=== PATIENT | male | born 1945 | race African-American/Black ===

== ENCOUNTER → 2018-11-13 | Day surgery (SDC) | payer MEDICARE, OTHER ==
[~2018-11-13] MED LIST: AMIO200T4 PO; AMIODARONE HCL 200 MG TABLET. PO SCH; AMLO10TA8 PO; AMLO5TAB4 PO; ASPI-424 PO; ASPIRIN ENTERIC COATED 81 MG TABLET.DR. PO SCH; ATOR20TA58 PO; ATORVASTATIN CALCIUM 20 MG TABLET PO SCH; BYSTOLIC10 MG PO; CARV12.511 PO; CARVEDILOL 12.5 MG TABLET. PO SCH; CETI10TA16 PO; CETIRIZINE HCL 10 MG TABLET. PO SCH; CHOL500016 PO; DEXAMETHASONE SOD PHOS 20 MG/5 ML VIAL. ONE; DIGO250T PO; FINA5TAB4 PO; FURO-69 PO; FURO40TA4 PO; FURO80TA3 PO; FUROSEMIDE 80 MG TABLET. PO SCH; GLYCOPYRROLATE 1 MG/5 ML VIAL. IV ONE; HEPARIN SODIUM 5,000 UNIT in IV NORMAL SALINE 500ML BAG 500 ML IRR ONE; HEPARIN for IV BOLUS 10,000 UNIT/10 ML VIAL. ONE; HYDR-2869 PO; HYDR-3164 PO; HYDROmorphone 2 MG/ML VIAL IV PRN; ISOS30TA4 PO; ISOSORBIDE MONONITRATE ER 30 MG TAB.ER.24H PO SCH; IV NORMAL SALINE 1000ML BAG 1,000 ML IV SCH; IV RINGERS,LACTATED 1000ML 1,000 ML IV SCH; LIDOCAINE 1% PF 2 ML VIAL. ID PRN; LIDOCAINE 1% PF 30 ML VIAL. ONE; LIDOCAINE 2% PF 5 ML VIAL. ONE; LISI-130 PO; MAGN400C PO; MAGN400T3 PO; MORPHINE SULFATE 4 MG/ML VIAL. IV PRN; ONDANSETRON ODT 4 MG TAB.RAPDIS. PO PRN; ONDANSETRON PF 4 MG/2 ML VIAL. IV PRN; ONDANSETRON PF 4 MG/2 ML VIAL. ONE; PANT20TA2 PO; PANT40TA3 PO; PAPAVERINE 60 MG/2 ML VIAL FOR OR ONLY. ONE; PHENYLEPHRINE 10 MG/ML VIAL. ONE; PROCHLORPERAZINE 10 MG/2 ML VIAL. IV PRN; PROPOFOL 20 ML IV ONE; SODI650T PO; SODIUM BICARBONATE 650 MG TABLET. PO SCH; SPIR25TA5 PO; SURGICEL FIBRILLAR 1X2 EACH. ONE; TAMS0.4C2 PO; TAMSULOSIN 0.4 MG CAP.ER.24H. PO SCH; amLODIPine BESYLATE 10 MG TABLET PO SCH; fentaNYL PF VIAL 100 MCG/2 ML VIAL IV PRN; fentaNYL PF VIAL 100 MCG/2 ML VIAL ONE
[2018-11-13 08:36] LABS: CALCIUM 9.3 mg/dL (8.5-10.1); CREATININE 5.1 mg/dL (0.7-1.3); GFR 13.5; POTASSIUM 5.2 mmol/L (3.5-5.1)
[2018-11-13 08:39] LABS: BASO # 0.1 x10^3/uL (0.0-0.2); BASO % 1 % (0-3); EOS # 0.1 x10^3/uL (0.0-0.7); EOS % 2 % (0-3); HEMATOCRIT 31.3 % (39.0-53.0); HEMOGLOBIN 9.7 g/dL (13.0-17.5); LYMPH % 26 % (24-48); MEAN CORPUSCULAR HEMOGLOBIN 26 pg (25-35); MEAN CORPUSCULAR HGB CONC 31 g/dL (31-37); MEAN CORPUSCULAR VOLUME 85 fL (79-100); MONO # 0.4 x10^3/uL (0.0-1.1); MONO % 5 % (0-9); NEUT # 5.1 x10^3uL (1.8-7.7); NEUT % 67 % (31-73); PLATELET COUNT 208 x10^3/uL (140-400); RED BLOOD COUNT 3.67 x10^6/uL (4.30-5.70); RED CELL DISTRIBUTION WIDTH 18.8 % (11.5-14.5); WHITE BLOOD COUNT 7.6 x10^3/uL (4.0-11.0)
--- NOTE | 2018-11-13 10:31 | PDOC ---
BRIEF OPERATIVE NOTE Date: Nov 13, 2018 Pre-Op Diagnosis End stage renal disease Post-Op Diagnosis Same Procedure Performed Right arm brachiocephalic arteriovenous fistula creation Surgeon Leslie Albarado MD Aligner Barrel And Receiver MIGUEL Li Anesthesia Type: General Blood Loss 5 mL Specimens Obtained None Findings Thrill felt immediately post op, palpable right radial pulse Complications None Operative Note See detailed op note JANIS PERDOMO Nov 13, 2018 10:31
--- NOTE | 2018-11-13 10:36 | DISCH ---
DISCHARGE INSTRUCTIONS Condition on Discharge Condition on Discharge: Stable Activity After Discharge Activity Instructions for Disc: Activity as tolerated, Other, see below (Use stress ball for hand exercises daily) Bathing Instructions: No Tub Bath until see Lifting Instructions after Dis: No heavy lifting, No pulling or pushing Diet after Discharge Diet after Discharge: Cardiac Wound Incision Care Wound/Incision Care: Keep wound/cast CDI Checks after Discharge Checks after discharge: Check blood press - daily Contacting the DRErlinda after DC Call your doctor for: If bleeding from surgical site. Hand pain or numbness. Follow-Up Follow up with: With Dr. Albarado 11/22/18 at 9:30 Treatment/Equipment after DC Adaptive Equipment Issued: None JANIS PERDOMO Nov 13, 2018 10:36
--- NOTE | 2018-11-13 11:12 | OP ---
DATE OF SURGERY: 11/13/2018 SURGEON: Leslie Albarado M.D. COMPLIANCE REVIEW OFFICER: MIGUEL Li PREOPERATIVE DIAGNOSIS: Chronic renal failure likely to require hemodialysis in the near future. POSTOPERATIVE DIAGNOSIS: Chronic renal failure likely to require hemodialysis in the near future. OPERATION PERFORMED: Right arm brachial artery to cephalic vein fistula. BLOOD LOSS: 10 mL. ANESTHESIA USED: General anesthesia. INDICATIONS: The patient is a 73-year-old male with chronic renal failure, likely to require hemodialysis in the near future. Nephrology asked us to place a dialysis access in his arm. He is right arm dominant; however, has a pacemaker in his left chest. Therefore, I recommended a right arm access to decrease the chance of significant swelling in his left arm. Vein mapping prior to surgery showed adequate cephalic vein in the right upper arm in the antecubital location for primary brachial artery to cephalic vein fistula. Informed consent was obtained including the risks of bleeding, infection, fistula failure or need for revision in the future and possible ischemic steal syndrome. DETAILS OF THE OPERATION: The patient was brought into the operating room and placed on table in supine position. He received general anesthesia and monitored throughout the case by the anesthesiologist. Prior to starting the case, I used ultrasound. I evaluated his cephalic vein. It was of good size, widely patent and easily compressible in the upper arm in the antecubital location and got small in the forearm. I marked where the cephalic vein was located just distal to the antecubital location. The right arm from the axilla to the hand was prepped and draped in normal sterile fashion. A transverse incision was made distal to the antecubital location over the area of the cephalic vein and brachial artery. The subcutaneous tissue was dissected down and the cephalic vein was located in the lateral incision. The vein was of good size at least 4-5 mm in diameter and patent. I dissected it out proximally and distally within the wound. Medially within the incision, we dissected down through subcutaneous tissue and the fascia down to the brachial vessels. The brachial vein and artery were identified. The brachial artery was dissected out proximally and distally and vessel loops placed around it proximally and distally. We heparinized with 3000 units of heparin. The distal cephalic vein branched into 2 branches. The distal branches were ligated with 2-0 silk sutures, clips and divided it. I spatulated it to make a nice wide open stephens through the branches. We advanced a pediatric feeding tube easily throughout the vein and irrigated easily with heparinized saline. We clamped it with a spring bulldog and brought it over to the area of the brachial artery. It had a good length and no tension. The brachial artery was clamped proximally and distally and a longitudinal arteriotomy was made on the anterior lateral wall of the vessel. Anastomosis was created between the cephalic vein and the brachial artery using running 6-0 Prolene suture. Prior to finishing the anastomosis, we backbled the vessels. There was good pulsatile inflow and good backbleeding from the artery and there was good backbleeding from the vein. We finished the anastomosis and restored blood flow. There was good dopplerable flow over the fistula tract and in the proximal and distal brachial artery and a palpable pulse at the radial location at the wrist. We irrigated with copious amount of saline. I explored the proximal wound and the cephalic vein was widely dilated. There were no branches identified. There was good hemostasis throughout the wound bed. Fibrillar was left over the anastomosis and the vessels. We then closed the subcutaneous tissue with running 3-0 Vicryl suture and closed the skin with running 4-0 Vicryl subcuticular suture. Dermabond was placed on the incision. He tolerated the surgery well with no immediate complications. LESLIE ALBARADO MD DR: MICHELE/eloy JOB#: [id number] / [id number]
[2018-11-13 12:22] VITALS: BP 166/78
== END | disposition home or self-care (01) ==
LOC: SURG 07:30
PROVIDERS: ATTEND Surgery Vascular Surgery
DX: I12.0 Hypertensive chronic kidney disease with stage 5 chronic kidney disease or end stage renal disease (principal); N18.5 Chronic kidney disease, stage 5; Z99.2 Dependence on renal dialysis; N40.0 Benign prostatic hyperplasia without lower urinary tract symptoms; E78.5 Hyperlipidemia, unspecified; Z79.82 Long term (current) use of aspirin; Z79.899 Other long term (current) drug therapy; Z87.891 Personal history of nicotine dependence; Z72.89 Other problems related to lifestyle; Z82.49 Family history of ischemic heart disease and other diseases of the circulatory system
CPT/HCPCS: 36415; 36821; 80048; 85025; A7015; J0690; J0696; J1100; J1644; J2001; J2405; J2440; J2704; J3010; J7040

== ENCOUNTER → 2020-06-19 | Day surgery (SDC) | payer MEDICARE ==
[~2020-06-19] MED LIST changes: -AMIODARONE HCL 200 MG TABLET. PO SCH; -ASPIRIN ENTERIC COATED 81 MG TABLET.DR. PO SCH; -ATORVASTATIN CALCIUM 20 MG TABLET PO SCH; +AURYXIA PO; -CARVEDILOL 12.5 MG TABLET. PO SCH; -CETIRIZINE HCL 10 MG TABLET. PO SCH; -DEXAMETHASONE SOD PHOS 20 MG/5 ML VIAL. ONE; -DIGO250T PO; +DIGO250T3 PO; +FA/V1TAB PO; -FUROSEMIDE 80 MG TABLET. PO SCH; -GLYCOPYRROLATE 1 MG/5 ML VIAL. IV ONE; -HEPARIN SODIUM 5,000 UNIT in IV NORMAL SALINE 500ML BAG 500 ML IRR ONE; -HEPARIN for IV BOLUS 10,000 UNIT/10 ML VIAL. ONE; -HYDROmorphone 2 MG/ML VIAL IV PRN; -ISOSORBIDE MONONITRATE ER 30 MG TAB.ER.24H PO SCH; +IV NORMAL SALINE 1000ML BAG 1,000 ML IV ONE; -IV NORMAL SALINE 1000ML BAG 1,000 ML IV SCH; -LIDOCAINE 1% PF 2 ML VIAL. ID PRN; -LIDOCAINE 1% PF 30 ML VIAL. ONE; -LIDOCAINE 2% PF 5 ML VIAL. ONE; -MAGN400T3 PO; +MAGN400T5 PO; +METO25TA4 PO; -MORPHINE SULFATE 4 MG/ML VIAL. IV PRN; -ONDANSETRON ODT 4 MG TAB.RAPDIS. PO PRN; -ONDANSETRON PF 4 MG/2 ML VIAL. IV PRN; -ONDANSETRON PF 4 MG/2 ML VIAL. ONE; -PANT40TA3 PO; +PANT40TA77 PO; -PAPAVERINE 60 MG/2 ML VIAL FOR OR ONLY. ONE; -PHENYLEPHRINE 10 MG/ML VIAL. ONE; -PROCHLORPERAZINE 10 MG/2 ML VIAL. IV PRN; +PROPOFOL 10 MG/ML (20ML) VIAL. IV ONE; -PROPOFOL 20 ML IV ONE; -SODIUM BICARBONATE 650 MG TABLET. PO SCH; -SURGICEL FIBRILLAR 1X2 EACH. ONE; -TAMSULOSIN 0.4 MG CAP.ER.24H. PO SCH; -amLODIPine BESYLATE 10 MG TABLET PO SCH; -fentaNYL PF VIAL 100 MCG/2 ML VIAL IV PRN; -fentaNYL PF VIAL 100 MCG/2 ML VIAL ONE
--- NOTE | 2020-06-19 08:57 | HP ---
ADMIT DATE: 06/19/2020 REASON FOR TESTING: Colorectal screening. REFERRING PHYSICIAN: MIGUEL Jenkins HISTORY OF PRESENT ILLNESS: A 74-year-old male with past medical history significant for end-stage renal disease, on hemodialysis; hypertension, hyperlipidemia, BPH, seen for a screening colon exam. Bowel habits are regular without diarrhea or constipation at this time. Did have some bleeding during the hospital stay and felt to be secondary to straining back in October. Weight and appetite have been stable. He has had no additional complaints recently. PAST MEDICAL HISTORY: End-stage renal disease, hypertension, hyperlipidemia, BPH, status post AICD placement. ALLERGIES: None. MEDICATIONS: Include amlodipine, aspirin, atorvastatin, furosemide, hydralazine, isosorbide, pantoprazole, sodium bicarbonate. FAMILY AND SOCIAL HISTORY: He is a former smoker, social drinker. PAST SURGICAL HISTORY: As stated. REVIEW OF SYSTEMS: Per records. PHYSICAL EXAMINATION: GENERAL: Reveals a thin -Bhutanese male who is alert, cooperative, in no acute distress. VITAL SIGNS: Temperature is 97.2, pulse 80, respirations 20. LUNGS: Clear. AICD is noted along the left anterior chest. CARDIOVASCULAR: Reveals an S1, S2 without S3, S4 or appreciable murmur. ABDOMEN: Reveals a soft abdomen. Normal bowel sounds. No hepatosplenomegaly. IMPRESSION AND PLAN: Colorectal screening is warranted at this time. Risks and benefits of procedure including risk of hemorrhage and perforation were discussed with the patient previously, is willing to proceed. MARCELLA HART MD DR: ORESTES/eloy JOB#: [id number] / [id number]
[2020-06-19 09:16] VITALS: BP 146/79
--- NOTE | 2020-06-22 18:06 | PATHOLOGY ---
[facility] Accession Number: [id number] . 01 Material submitted: . PART A: colon - ASCENDING COLON POLYPS. Modifiers: ascending PART B: rectum - RECTAL POLYP . 01 Clinical history: . SCREENING . 02 Diagnosis: A. Colon biopsies, ascending colon polyps: - Hyperplastic polyps showing focal melanosis coli. - Segments of small intestine mucosa showing focal active chronic inflammation and melanosis coli of mucosal villi. . B. Colorectal biopsy, rectal polyp: - Hyperplastic polyp. LBQ 06/22/2020 1712 Local . 02 Comment: Sections of the ascending colon biopsies reveal several hyperplastic polyps showing focal melanosis coli. There are also segments of small intestinal mucosa showing focal active chronic inflammation and melanosis coli of mucosal villi. There are no adenomatous changes or evidence of malignancy. . Sections of the rectal biopsy reveal a hyperplastic polyp. There are no adenomatous changes or evidence of malignancy. (JPM/db; 06/22/2020) . 02 Electronically signed: . Jose Birch MD, Pathologist NPI- [id number] . 01 Gross description: . A. The specimen is received in formalin, labeled "Rene Deleon, ascending colon polyps" and consists of 4 fragments of owens tissue measuring 0.9 x 0.6 x 0.3 cm in aggregate which are entirely submitted in A1. . B. The specimen is received in formalin, labeled "Pancho, Rene, rectal polyp" and consists of a fragment of pink-owens tissue measuring 0.4 x 0.3 x 0.2 cm which is entirely submitted in B1. (SDY; 06/19/2020) SYU/SYU 06/19/2020 1708 Local . 02 Pathologist provided ICD-10: K63.5, K63.89, K52.9, K62.1 . 02 CPT . 151466, [id number] Specimen Comment: A courtesy copy of this report has been sent to [phone], [phone] Specimen Comment: [id number] Specimen Comment: Report sent to / DR CHURCHILL Performed at: [address] [facility], [place] [id number] MD Jose Luis Chapman MD Phone: [phone] [facility]formed at: [facility] [address], [place] [id number] MD Jose Birch MD Phone: [phone]
== END | disposition home or self-care (01) ==
LOC: SURG 06:59
PROVIDERS: ATTEND Internal Medicine Gastroenterology
DX: K92.1 Melena (principal); Z20.828 Contact with and (suspected) exposure to other viral communicable diseases; K63.5 Polyp of colon; K62.1 Rectal polyp; I12.0 Hypertensive chronic kidney disease with stage 5 chronic kidney disease or end stage renal disease; N18.6 End stage renal disease; K57.30 Diverticulosis of large intestine without perforation or abscess without bleeding; K64.0 First degree hemorrhoids; E78.5 Hyperlipidemia, unspecified; Z86.010 Personal history of colon polyps; Z95.810 Presence of automatic (implantable) cardiac defibrillator; Z98.890 Other specified postprocedural states; Z79.82 Long term (current) use of aspirin; Z79.899 Other long term (current) drug therapy; Z87.891 Personal history of nicotine dependence
CPT/HCPCS: 45380; 87426; 88305; J2704; U0003

== ENCOUNTER 2020-06-25 14:46 | Inpatient (IN) | payer MEDICARE ==
[~2020-06-25] VITALS: Ht 177.8 cm; Wt 91.0 kg
[~2020-06-25 14:46] MED LIST changes: -AMIO200T4 PO; +AMIO200T6 PO; +AMLO-187 PO; -AMLO10TA8 PO; -IV NORMAL SALINE 1000ML BAG 1,000 ML IV ONE; -IV RINGERS,LACTATED 1000ML 1,000 ML IV SCH; -PROPOFOL 10 MG/ML (20ML) VIAL. IV ONE
[2020-06-25 14:53] VITALS: BP 175/95
--- NOTE | 2020-06-25 15:00 | NUR ---
admitted from [facility] ER. He has a hx of colonoscopy last Monday, HE ate a sandwich with cheese and thinks hit made him constipated, He developed llq pain over the weekend. He did not take anything for the pain. It was bad enough that he cancelled his dialysis on Monday and Monday. He took 4 laxative tablets on Monday; then had diarrhea on Monday. since the pain continued and the diarrhea continued went to the ER early this am. no further stools since early this am. He is a dialysis patient; but he still urinates. He brought his medications and they were sent to pharmacy. denies feeling faint or light headed. denies falling. No complaints of nausea or vomiting. He is very hard of hearing.
--- NOTE | 2020-06-25 16:27 | PDOC2 ---
GI CONSULT Date of Service: DATE: 06/25/20 TIME: 16:05 Reason For Consult: LLQ pain post colonoscopy HPI: HPI: 74 y/o male transferred from [facility]. He is not a good historian. H/o ESRD on HD - has not dialyzed in a week. Has had some lower abdominal pain that is worse w/ movement since Monday after eating a sandwich. [place] constipated so took some laxatives on Monday, then had "diarrhea." (Per nurse d/w [facility] ER - "pudding" consistency, no blood.) Maybe some decreased appetite. Denies reflux, dysphagia, n/v, hematochezia, melena, and weight loss. Colonoscopy w/ Dr. Bentley on 06/19/20 - unable to view procedure report but path notes hyperplastic polyps. We saw for suspected diverticular bleed in 10/2019. H/o villous adenoma in right colon s/p resection in 2012. ?h/o GERD - pantoprazole on med list, also ASA. Chronic anemia. Diverticulosis and hepatic steatosis on past imaging. No GB, pancreas, or PUD history. At [facility]: -normal WBC, Hgb 11.8, normal plt, BUN 84, Cr 13.7, normal LFTs and lipase -CT w/ normal liver and GB, mild fatty atrophy of pancreatic tail, atheromatous plaque in abdominal aorta, urinary distention w/ mild bilateral hydroureteronephrosis w/ extensive periureteral and pericystic inflammatory changes, prostatomegaly w/ hypoattenuating area in right peripheral zone, mild diverticulosis WITHOUT adjacent inflammatory changes, right external iliac lymph node w/ possible reactive changes, indeterminate inferior renal pole lesion. ER note suggests diverticulitis, given Flagyl and Cipro, now on Zosyn. PMH: PMH: NICM, PAFIB/flutter, NSVT, CHF, COPD, SAMM, ESRD on HD, HTN, HLD, BPH AICD, LUE fistula, ?TURP FH: Family History: No pertinent hx (deneis GI cancers) Social History: Smoke: Quit ALCOHOL: occassional Drugs: None ROS: GEN: Denies fevers, chills, sweats HEENT: Denies blurred vision, sore throat CV: Denies chest pain RESP: Denies shortness of air, cough GI: Per HPI : Denies hematuria, dysuria ENDO: Denies weight changes NEURO: Denies confusion, dizziness MSK: Denies weakness, joint pain/swelling SKIN: Denies jaundice, pruritus Vitals: Vitals: Vital Signs Date Time Temp Pulse Resp B/P (MAP) Pulse Ox O2 Delivery O2 Flow Rate FiO2 06/25/20 14:53 97.7 70 18 175/95 (121) 97 Room Air 97.7 Allergies: Coded Allergies: No Known Drug Allergies (Unverified , 06/19/20) Imaging: Imaging: as in HPI PE: GEN: NAD HEENT: Atraumatic, PERRL LUNGS: diminished HEART: RRR distant ABD: quiet BS, some distention, suprapubic discomfort EXTREMITY: No edema SKIN: No rashes, no jaundice NEURO/PSYCH: A & O 3, poor historian A/P: A/P: Lower abd pain, decreased appetite, loose stools ESRD on HD, non-compliance Chronic anemia - improved from last encounter, likely ACD Abnormal CT - urinary distention w/ mild bilateral hydroureteronephrosis w/ extensive periureteral and pericystic inflammatory changes, prostatomegaly w/ hypoattenuating area in right peripheral zone, indeterminate inferior renal pole lesion ?GERD CRC screen - UTD (last week) H/o villous adenoma and right colon resection H/o suspected diverticular bleed Hepatic steatosis COVID negative 06/19/20 -- Not sure his pain is a GI-issue... CT as above. Needs dialysis. No urology here. Monitor for recurrent "diarrhea," consider stool studies if indicated - though seems as thought having loose stools as a result of taking laxatives. Okay to eat per GI - has clears orders, may ADAT. DAVID SLATER Jun 25, 2020 16:27
[2020-06-25] MEDS: PIPERACILLIN/TAZOBACTAM 2.25 GM in IV NORMAL SALINE 50ML 50 ML IV SCH ×2 (16:53→21:43)
[2020-06-25] MEDS: ISOSORBIDE MONONITRATE ER 30 MG TAB.ER.24H PO SCH (16:54)
[2020-06-25 19:46] VITALS: BP 168/84
[2020-06-25] MEDS: ATORVASTATIN CALCIUM 20 MG TABLET PO SCH (21:42)
[2020-06-25 23:23] VITALS: BP 151/76
[2020-06-26 03:05] VITALS: BP 176/73
[2020-06-26 05:12] LABS: HEMOGLOBIN 11.8 g/dL (13.0-17.5); RED BLOOD COUNT 3.81 x10^6/uL (4.30-5.70); RED CELL DISTRIBUTION WIDTH 16.5 % (11.5-14.5); WHITE BLOOD COUNT 6.4 x10^3/uL (4.0-11.0)
[2020-06-26] MEDS: PIPERACILLIN/TAZOBACTAM 2.25 GM in IV NORMAL SALINE 50ML 50 ML IV SCH ×3 (06:06→21:59)
[2020-06-26 06:10] LABS: CREATININE 14.1 mg/dL (0.7-1.3); GFR 4.2; POTASSIUM 4.3 mmol/L (3.5-5.1)
[2020-06-26 07:05] VITALS: BP 150/74
[2020-06-26] MEDS ORDERED: IV NORMAL SALINE 1000ML BAG 1,000 ML IV PRN ×2 (08:22)
[2020-06-26] MEDS: PANTOPRAZOLE 40 MG TABLET.DR. PO SCH (08:23)
[2020-06-26] MEDS ORDERED: ACETAMINOPHEN 500 MG TABLET PO PRN (08:30)
[2020-06-26] MEDS ORDERED: diphenhydrAMINE 50 MG/ML VIAL IV PRN ×2 (08:30)
[2020-06-26] MEDS ORDERED: ALBUMIN HUMAN 25% 200 ML IV PRN (08:30)
[2020-06-26] MEDS ORDERED: DIALYSIS PATIENT. MC PRN (08:30)
[2020-06-26] MEDS: amLODIPine BESYLATE 10 MG TABLET PO SCH (09:00)
[2020-06-26] MEDS: FUROSEMIDE 80 MG TABLET. PO SCH (09:00)
[2020-06-26] MEDS: ISOSORBIDE MONONITRATE ER 30 MG TAB.ER.24H PO SCH (09:00)
--- NOTE | 2020-06-26 09:46 | NUR ---
Hold all of 9 am blood pressure medications per Gila SHEFFIELD in dialysis
--- NOTE | 2020-06-26 10:16 | NUR ---
SW following. Discussed with RN, pt from home alone, room air, clear liquid diet. RN reported pt gets around fine. Pt does dialysis MWF at [facility] (ph: [phone]). SW will continue to follow for any discharge planning needs.
--- NOTE | 2020-06-26 10:29 | PDOC ---
Date of Service: DATE: 06/26/20 TIME: 10:24 Subjective: Subjective: Abd pain better. Tolerating clears, wants more to eat. Stooled - denies diarrhea. Objective: Vital Signs: Vital Signs Date Time Temp Pulse Resp B/P (MAP) Pulse Ox O2 Delivery O2 Flow Rate FiO2 06/26/20 07:05 97.8 87 19 150/74 (99) 99 Room Air 97.8 Labs: Laboratory Tests Test 06/26/20 03:45 White Blood Count 6.4 x10^3/uL Red Blood Count 3.81 x10^6/uL Hemoglobin 11.8 g/dL Hematocrit 36.0 % Mean Corpuscular Volume 95 fL Mean Corpuscular Hemoglobin 31 pg Mean Corpuscular Hemoglobin Concent 33 g/dL Red Cell Distribution Width 16.5 % Platelet Count 156 x10^3/uL Sodium Level 139 mmol/L Potassium Level 4.3 mmol/L Chloride Level 100 mmol/L Carbon Dioxide Level 18 mmol/L Anion Gap 21 Blood Urea Nitrogen 91 mg/dL Creatinine 14.1 mg/dL Estimated GFR (Cockcroft-Gault) 4.2 Glucose Level 68 mg/dL Calcium Level 8.0 mg/dL PE: GEN: dialyzing LUNGS: CTAB HEART: RRR ABD: BS+, non-tender NEURO/PSYCH: A & O 3 A/P: Lower abd pain - better - urinary/renal findings on CT per consult note ESRD on HD, non-compliance Chronic anemia -- Still not sure pain was GI in nature - regardless, better now. As ordered yesterday, okay to advance diet per GI. Justicifation of Admission Dx: Justifications for Admission: Justification of Admission Dx: Yes DAVID SLATER Jun 26, 2020 10:29
--- NOTE | 2020-06-26 10:55 | HP ---
ADMIT DATE: 06/25/2020 HISTORY OF PRESENT ILLNESS: The patient is a 74-year-old male patient who presented to the Emergency Room of [facility] with a complaint of diarrhea. He stated that he has recent colonoscopy about 7 days ago and was told that everything was fine. He started complaining of abdominal pain for the past 3 days. He states that pain has begun gradually. Pain is aching in nature. He stated that he did have colonoscopy 6 days ago. He stated it was routine in nature. He is unsure if any polyps were removed. He apparently was constipated post-colonoscopy and therefore stated he took laxatives, he took 3-4 doses over the past 3 days. He stated that he has had loose stools since then. Denied any nausea or vomiting. States he typically receives dialysis on Mondays, Wednesdays, Fridays and he did not go on Monday because he was not feeling well; however, he denied any chest pain or shortness of breath. Denied any blood in the stool. Denied any urinary symptoms, but does state that he makes a little bit of urine, but denied any objective fevers. States that nothing seems to make his pain better or worse. He tolerated oral intake without difficulty. He was extensively investigated in [facility]. His lab work was mostly unremarkable and in fact, his white cell count is only 7800. His chemistry showed he obviously has chronic kidney disease. Urinalysis was essentially unremarkable and his C. diff toxin by PCR was negative. He has had a CT scan of the abdomen and pelvis, which basically showed that there is urinary distention with mild bilateral hydroureteronephrosis with extensive periureteral and pericystic inflammatory changes finding most favor cystitis and pyelitis correlate clinically for pyelonephritis. Prominence of the renal collecting system may reflect ____ stasis versus bladder outlet obstruction. He has prostatomegaly with a hypoattenuation area in the right peripheral zone measuring 2.5 cm, correlate for signs and symptoms of prostatitis, mild diverticulosis without adjacent inflammatory changes, right external iliac lymph node measuring 9.5 mm suggestive of reactive changes and indeterminate inferior pole left renal lesion measuring 1.6 cm. Further characterization of the renal mass was found and apparently the patient was transferred to [facility] as he requires hemodialysis and to consult the wallpaperer helper about possible diverticulitis. As per ER physician assessment, he was started on ciprofloxacin and Flagyl. PAST MEDICAL HISTORY: Significant for nonischemic cardiomyopathy, end-stage renal disease. He had had an AICD placed. He had an ejection fraction of only 25%. He has also lower gastrointestinal bleed, most likely diverticular, self-limited. His H and H was stable at that time and has a history of hypertension. PAST SURGICAL HISTORY: Significant for right arm brachiocephalic arteriovenous fistula creation and AICD placement. He has other medical problems include anemia of chronic kidney disease. FAMILY HISTORY: Unremarkable. SOCIAL HISTORY: He is and lives with his . He does not smoke, drink alcohol or use recreational drugs. He is on hemodialysis on Monday, Monday, Monday at [facility] in [place]. REVIEW OF SYSTEMS: As per history of present illness. PHYSICAL EXAMINATION: GENERAL: On arrival to the Emergency Room, he looked pale, but no jaundice, cyanosis or thyromegaly. No jugular venous distention. No limb edema. VITAL SIGNS: His heart rate was 82, blood pressure was 173/86, temperature was 99.1, respiratory rate was 16, and oxygen saturation was 94% on room air. HEAD, EYES, EARS, NOSE AND THROAT: Showed normocephalic, atraumatic. NECK: Supple. CARDIAC: Normal first and second heart sounds. No gallop or murmur. CHEST: Clear to auscultation. No crepitation or rhonchi. ABDOMEN: Distended, soft. No acute abdomen, noninvoluntary guarding or rigidity. No acute peritonitis. NEUROLOGIC: He was awake, alert, oriented x 3 with normal motor and sensory function, no focal deficits noted. LABORATORY DATA: His lab work showed that the patient's white cell count was 7800, hemoglobin 11.8, hematocrit 36.7, MCV 96, and platelet count of 159,000. His chemistry showed a serum sodium 139, potassium 3.8, chloride 101, bicarbonate 17, anion gap of 21, BUN 84, creatinine was 13.7, estimated GFR was 4.3 mL per minute. His glucose 65, calcium was 8.3, magnesium was 2.2. Total bilirubin, AST, ALT, alkaline phosphatase were normal. Total protein was 8.1 and albumin was 3.6. Lipase was 151. Urinalysis was essentially unremarkable apart from a moderate amount of proteinuria and his stool for C. diff toxins by PCR was negative. ASSESSMENT AND PLAN: The patient was transferred as per ER physician to [facility] with acute diverticulitis, was treated with ciprofloxacin as well as Flagyl and we did obviously start him on a clear liquid diet and consulted the Nephrology team as well as the Gastroenterology team. KATHIA POSADA MD DR: EDIE/eloy JOB#: [id number] / [id number]
--- NOTE | 2020-06-26 11:07 | PN ---
DATE: 06/26/2020 SUBJECTIVE: The patient is resting, slightly propped up in bed, in no apparent respiratory distress, having his scheduled hemodialysis this morning. On questioning him, he denied any abdominal pain. He has no nausea or vomiting. He had one bowel movement this morning. PHYSICAL EXAMINATION: GENERAL: When I examined him this morning, he looked pale, no jaundice, cyanosis or thyromegaly. No jugular venous distention. No limb edema. VITAL SIGNS: His heart rate was 87, blood pressure 150/74, temperature was 97.8, respiratory rate was 19, and oxygen saturation was 99% on room air. HEAD, EYES, EARS, NOSE AND THROAT: Showed normocephalic, atraumatic. NECK: Supple. HEART: Showed normal first and second heart sounds. No gallop or murmur. CHEST: Clear to auscultation. No crepitation or rhonchi. ABDOMEN: Distended, soft, nontender. No guarding or rigidity. No organomegaly. All hernial orifice intact. Bowel sounds normal. NEUROLOGIC: He was awake, alert, responding appropriately. All cranial nerves are intact. He moves extremities without difficulty. The patient ambulates without assistance or assistive devices. LABORATORY DATA: His lab work this morning showed a white cell count 6400, hemoglobin 11.8, hematocrit 36, MCV 95, and platelet count of 156,000. Serum sodium was 139, potassium 4.3, chloride 100, bicarbonate 18, anion gap of 21, BUN 91, creatinine 14, estimated GFR was 4.2 mL per minute. His glucose was 68 and calcium was 8. ASSESSMENT: In summary, this is a 74-year-old -Hond[place] male patient with end-stage renal disease, on hemodialysis Monday, Monday, Monday. He was transferred with diagnosis of diverticulitis; however, he has had only a colonoscopy done about a week ago and CT scan showed diverticulosis without any diverticulitis. His CT scan actually showed urinary retention with mild bilateral hydroureteronephrosis, extensive periureteral and pericystic inflammatory changes as well as prostatectomy and hypoattenuating area in the right peripheral zone and indeterminate inferior renal pole lesion. Apparently, he had had colonoscopy about a week ago and villous adenoma and right colon resection and has suspected diverticular bleed last year. PLAN: My plan is to obviously continue with IV antibiotic in the form of piperacillin and tazobactam every 8 hours. I will scan his bladder to make sure if he still continues to retain urine we might have to do a Machado catheter and he probably needs to be seen by urologist. I will evaluate him again tomorrow and if he remains stable, we might have to discharge him home with an appointment to see a urologist as an outpatient. KATHIA POSADA MD DR: EDIE/eloy JOB#: [id number] / [id number]
--- NOTE | 2020-06-26 13:15 | NUR ---
PVR 959ml
--- NOTE | 2020-06-26 13:17 | PDOC2 ---
CONSULT Date of Consult Date of Consult DATE: 06/26/20 TIME: 13:06 Reason for Consult Reason for Consult: ESRD Source Source: Chart review, Patient History of Present Illness Reason for Visit: Pt is a 74-year-old male patient who presented to the ER of [facility] with complaint of diarrhea. He stated that he has recent routine colonoscopy about 7 days ago and was told that everything was fine. He started complaining of abdominal pain for the past 3 days , began gradually. He was constipated post- colonoscopy and therefore took laxatives 3-4 doses over the past 3 days and has had loose stools since then. Denied any nausea or vomiting. He is compliant with HD, missed this Monday because he was not feeling well Denies any chest pain or shortness of breath. No blood in the stool. Denies any urinary symptoms, doesnt have much RRF Denies F/C, No N/V Urinalysis was unremarkable , C. diff toxin by PCR negative. Past Medical History Cardiovascular: CHF, HTN, Hyperlipidemia, Other Pulmonary: COPD, Other Musculoskeletal: Osteoarthritis Renal/: Chronic renal failure, Benign prostatic enlarg. Past Surgical History Past Surgical History: Pacemaker Family History Family History: Other Social History Quit ALCOHOL: occassional Drugs: None Lives: Alone Current Medications Current Medications Current Medications Piperacillin Sod/ Tazobactam Sod 2.25 gm/Sodium Chloride 50 ml @ 100 mls/hr Q8HRS IV Last administered on 06/26/20at 06:06; Start 06/25/20 at 16:00 Amlodipine Besylate (Norvasc) 10 mg DAILY PO ; Start 06/26/20 at 09:00 Atorvastatin Calcium (Lipitor) 20 mg QHS PO Last administered on 06/25/20at 21:42; Start 06/25/20 at 21:00 Furosemide (Lasix) 80 mg DAILY PO ; Start 06/26/20 at 09:00 Hydralazine HCl (Apresoline) 50 mg TID PO Last administered on 06/25/20at 21:42; Start 06/25/20 at 16:00 Isosorbide Mononitrate (Imdur) 30 mg DAILY PO Last administered on 06/25/20at 16:54; Start 06/25/20 at 17:00 Pantoprazole Sodium (Protonix) 40 mg DAILYAC PO Last administered on 06/26/20at 08:23; Start 06/26/20 at 07:30 Sodium Chloride 1,000 ml @ 1,000 mls/hr Q1H PRN IV hypotension; Start 06/26/20 at 08:22; Stop 06/26/20 at 14:21 Albumin Human 200 ml @ 200 mls/hr 1X PRN PRN IV Hypotension; Start 06/26/20 at 08:30; Stop 06/26/20 at 14:29 Acetaminophen (Tylenol) 500 mg 1X PRN PRN PO MILD PAIN / TEMP > 100.3'F; Start 06/26/20 at 08:30; Stop 06/27/20 at 08:29 Diphenhydramine HCl (Benadryl) 25 mg 1X PRN PRN IV ITCHING; Start 06/26/20 at 08:30; Stop 06/27/20 at 08:29 Diphenhydramine HCl (Benadryl) 25 mg 1X PRN PRN IV ITCHING; Start 06/26/20 at 08:30; Stop 06/27/20 at 08:29 Sodium Chloride 1,000 ml @ 400 mls/hr Q2H30M PRN IV PATENCY; Start 06/26/20 at 08:22; Stop 06/26/20 at 20:21 Info (PHARMACY MONITORING -- do not chart) 1 each PRN DAILY PRN MC SEE COMMENTS; Start 06/26/20 at 08:30 Active Scripts Active Isosorbide Mononitrate Er (Isosorbide Mononitrate) 30 Mg Tab.er.24h 30 Mg PO DAILY Reported [Auryxia] 2 tabs Tab 210 Mg PO TIDWMEALS Hydralazine Hcl 50 Mg Tablet 1 Tab PO TID Furosemide 80 Mg Tablet 1 Tab PO DAILY Atorvastatin Calcium 20 Mg Tablet 1 Tab PO DAILY Amlodipine Besylate 10 Mg Tablet 10 Mg PO DAILY Protonix (Pantoprazole Sodium) 40 Mg Tablet. 40 Mg PO DAILYAC Dialyvite 3,000 Tablet (Fa/Vit Bcomp&C/Se/Min Aa/Zn) 1 Each Tablet 1 Tab PO DAILY 30 Days Sodium Bicarbonate 650 Mg Tablet 1 Tab PO BID Adult Low Dose Aspirin Ec (Aspirin) 81 Mg Tablet. 81 Mg PO DAILY Allergies Allergies: Coded Allergies: No Known Drug Allergies (Unverified , 06/19/20) ROS Review of System Per HPI , rest of the ROS is negative Physical Exam Physical Exam GEN: Awake, Oriented x [], In [] distress EYES: Vision Unchanged, Conjunctiva Normal EN: No EN Drainage, Mucous Membranes [] NECK: [] JVD, [] JVP, Supple, [] Thyromegaly CVS: S1S2, [] Murmur, No Gallop, No Rub,[] Edema RESP: [] Rales, [] Rhonchi,[] Acc. Muscle Use GI: BS + ve, NO Bruit, Non Tender, Non Distended : [] CVA tenderness, [] Suprapubic Tenderness Vital Signs Vital Signs Date Time Temp Pulse Resp B/P (MAP) Pulse Ox O2 Delivery O2 Flow Rate FiO2 06/26/20 07:05 97.8 87 19 150/74 (99) 99 Room Air 97.8 Assessment & Plan ESRD.- On HD MWF under Dr. Sethi's care at Seen on Dialysis, tolerating well, discussed treatment plan with [facility] CT scan of the abdomen and pelvis at [place] - urinary distention with mild bilateral hydroureteronephrosis with extensive periureteral and pericystic inflammatory changes finding most favor cystitis and pyelitis Prominence of the renal collecting system may reflect stasis versus bladder outlet obstruction. He has prostatomegaly with a hypoattenuation area in the right peripheral zone measuring 2.5 cm, correlate for signs and symptoms of prostatitis, mild diverticulosis No past imaging available, Not sure if this is chronic finding and possible cause of ESRD . UA unremarkable at [facility] Recommend bladder scan if significant PVR will need Machado and OP Uro consult BPH as above Indeterminate inferior pole left renal lesion measuring 1.6 cm. Diverticulitis- Per GI Anemia - No indication for [facility] Labs Labs Laboratory Tests Test 06/26/20 03:45 White Blood Count 6.4 x10^3/uL (4.0-11.0) Red Blood Count 3.81 x10^6/uL (4.30-5.70) Hemoglobin 11.8 g/dL (13.0-17.5) Hematocrit 36.0 % (39.0-53.0) Mean Corpuscular Volume 95 fL (79-100) Mean Corpuscular Hemoglobin 31 pg (25-35) Mean Corpuscular Hemoglobin Concent 33 g/dL (31-37) Red Cell Distribution Width 16.5 % (11.5-14.5) Platelet Count 156 x10^3/uL (140-400) Sodium Level 139 mmol/L (136-145) Potassium Level 4.3 mmol/L (3.5-5.1) Chloride Level 100 mmol/L (98-107) Carbon Dioxide Level 18 mmol/L (21-32) Anion Gap 21 (6-14) Blood Urea Nitrogen 91 mg/dL (8-26) Creatinine 14.1 mg/dL (0.7-1.3) Estimated GFR (Cockcroft-Gault) 4.2 Glucose Level 68 mg/dL (70-99) Calcium Level 8.0 mg/dL (8.5-10.1) Laboratory Tests Test 06/26/20 03:45 White Blood Count 6.4 x10^3/uL (4.0-11.0) Red Blood Count 3.81 x10^6/uL (4.30-5.70) Hemoglobin 11.8 g/dL (13.0-17.5) Hematocrit 36.0 % (39.0-53.0) Mean Corpuscular Volume 95 fL (79-100) Mean Corpuscular Hemoglobin 31 pg (25-35) Mean Corpuscular Hemoglobin Concent 33 g/dL (31-37) Red Cell Distribution Width 16.5 % (11.5-14.5) Platelet Count 156 x10^3/uL (140-400) Sodium Level 139 mmol/L (136-145) Potassium Level 4.3 mmol/L (3.5-5.1) Chloride Level 100 mmol/L (98-107) Carbon Dioxide Level 18 mmol/L (21-32) Anion Gap 21 (6-14) Blood Urea Nitrogen 91 mg/dL (8-26) Creatinine 14.1 mg/dL (0.7-1.3) Estimated GFR (Cockcroft-Gault) 4.2 Glucose Level 68 mg/dL (70-99) Calcium Level 8.0 mg/dL (8.5-10.1) Review All relevant outside records, renal labs, imaging studies, telemetry/EKG's were reviewed. REGINA PRESSLEY MD Jun 26, 2020 13:17
[2020-06-26 15:05] VITALS: BP 148/64
[2020-06-26 19:17] VITALS: BP 147/67
[2020-06-26] MEDS: ATORVASTATIN CALCIUM 20 MG TABLET PO SCH (21:17)
[2020-06-26 23:15] VITALS: BP 121/65
[2020-06-27 03:01] VITALS: BP 154/67
[2020-06-27] MEDS: PIPERACILLIN/TAZOBACTAM 2.25 GM in IV NORMAL SALINE 50ML 50 ML IV SCH ×3 (06:07→21:17)
[2020-06-27 07:00] VITALS: BP 116/59
[2020-06-27] MEDS: FUROSEMIDE 80 MG TABLET. PO SCH (07:36)
[2020-06-27] MEDS: ISOSORBIDE MONONITRATE ER 30 MG TAB.ER.24H PO SCH (07:36)
[2020-06-27] MEDS: PANTOPRAZOLE 40 MG TABLET.DR. PO SCH (07:37)
[2020-06-27] MEDS: amLODIPine BESYLATE 10 MG TABLET PO SCH (07:38)
[2020-06-27 11:00] VITALS: BP 111/68
[2020-06-27] MEDS: DIPHENOXYLATE/ATROPINE TABLET. PO SCH ×3 (12:53→23:36)
--- NOTE | 2020-06-27 13:50 | PN ---
DATE: 06/27/2020 SUBJECTIVE: The patient is resting flat, comfortably in bed, in no apparent distress. On questioning him, he denied any complaint. In particular, he has no more abdominal pain, has had no more diarrhea. CT scan showed no evidence of any diverticulitis; however, it did show there is urinary distention with mild bilateral hydroureteronephrosis with extensive periureteral and pericystic inflammatory changes. Finding most favor cystitis and pyelitis. He was dialyzed yesterday as he missed his dialysis on Monday, but according to the customer experience professional, he is very compliant with his hemodialysis. PHYSICAL EXAMINATION: GENERAL: When I saw him this morning, he was resting flat, comfortably in bed, in no apparent respiratory distress. He has no pallor, jaundice, cyanosis, or thyromegaly. No jugular venous distention. No limb edema. VITAL SIGNS: His heart rate was 91, blood pressure 154/67, temperature was 99.1, respiratory rate was 18 and oxygen saturation was 98%. HEAD, EYES, EARS, NOSE, AND THROAT: Showed normocephalic, atraumatic. NECK: Supple. HEART: Normal first and second heart sounds. No gallop, rub, or murmur. CHEST: Clear to auscultation. No crepitation or rhonchi. ABDOMEN: Distended, soft, nontender. NEUROLOGIC: He is awake, alert, responding appropriately. All cranial nerves are intact. He moves extremities without difficulty. LABORATORY DATA: No lab works were done this morning. ASSESSMENT: 1. The patient has end-stage renal disease, on hemodialysis Monday, Monday, Monday. 2. He was transferred to this hospital with possible diagnosis of diverticulitis. However, he has had colonoscopy done only about a week ago and CT scan showed no evidence of diverticulitis. However, he did have diverticulosis. 3. CT scan showed urinary retention with mild bilateral hydroureteronephrosis and extensive ureteral and pericystic inflammatory changes as well as prostatectomy and hypoattenuation area in the right peripheral zone and indeterminate inferior renal pole lesion. His other medical problems include nonischemic cardiomyopathy for which he has automatic implantable cardiovascular defibrillator placed. He has also lower gastrointestinal bleed, most likely diverticular. 4. History of hypertension. PLAN: My plan is obviously to continue with IV Zosyn. I will consult the Infectious Disease specialist to see whether the finding on CT scan is really relevant or the patient can be discharged home to follow up with the urologist. KATHIA POSADA MD DR: EDIE/eloy JOB#: [id number] / [id number]
[2020-06-27 15:00] VITALS: BP 108/40
--- NOTE | 2020-06-27 15:32 | PDOC ---
DATE OF SERVICE DATE: 06/27/20 TIME: 15:32 SUBJECTIVE ROS No complaints OBJECTIVE Vital Signs Vital Signs Date Time Temp Pulse Resp B/P (MAP) Pulse Ox O2 Delivery O2 Flow Rate FiO2 06/27/20 14:33 81 111/68 06/27/20 11:00 98.6 18 96 Room Air 98.6 I & 0 Intake and Output 06/27/20 07:00 Intake Total 150 ml Output Total 50 ml Balance 100 ml Intake Oral 150 ml Output Urine Total 50 ml # Bowel Movements 1 PHYSICAL EXAM Physical Exam GENERAL: no acute distress, lying comfortably in bed. HEENT: OM moist NECK: Supple, LUNGS: Clear bilaterally. HEART: S1, S2. ABDOMEN: Soft, nontender and nondistended. GENITOURINARY: Machado in place. NEUROLOGIC: Alert, oriented x 3, grossly nonfocal. DIAGNOSIS/ASSESSMENT Assessment & Plan ESRD.- On HD MWF under Dr. Sethi's care at No indication for HD today CT scan of the abdomen and pelvis at [place] - urinary distention with mild bilateral hydroureteronephrosis with extensive periureteral and pericystic inflammatory changes finding most favor cystitis and pyelitis Prominence of the renal collecting system may reflect stasis versus bladder outlet obstruction. He has prostatomegaly with a hypoattenuation area in the right peripheral zone measuring 2.5 cm, correlate for signs and symptoms of prostatitis, mild diverticulosis No past imaging available, Not sure if this is chronic finding and possible cause of ESRD . UA unremarkable at [facility] BPH as above Indeterminate inferior pole left renal lesion measuring 1.6 cm. Diverticulitis- Per GI Anemia - No indication for [facility] COMMENT/RELEVANT DATA Meds Current Medications Medications (Trade) Dose Ordered Sig/Travis Start Time Stop Time Status Last Admin Dose Admin Acetaminophen (Tylenol) 500 mg 1X PRN PRN 06/26/20 08:30 06/27/20 08:29 DC Albumin Human 200 ml @ 200 mls/hr 1X PRN PRN 06/26/20 08:30 06/26/20 14:29 DC Amlodipine Besylate (Norvasc) 10 mg DAILY 06/26/20 09:00 06/27/20 07:38 10 MG Atorvastatin Calcium (Lipitor) 20 mg QHS 06/25/20 21:00 06/26/20 21:17 20 MG Diphenhydramine HCl (Benadryl) 25 mg 1X PRN PRN 06/26/20 08:30 06/27/20 08:29 DC Diphenoxylate HCl/ Atropine (Lomotil) 1 tab Q6H 06/27/20 12:00 06/27/20 12:53 1 TAB Furosemide (Lasix) 80 mg DAILY 06/26/20 09:00 06/27/20 07:36 80 MG Hydralazine HCl (Apresoline) 50 mg TID 06/25/20 16:00 06/27/20 14:33 50 MG Info (PHARMACY MONITORING -- do not chart) 1 each PRN DAILY PRN 06/26/20 08:30 Isosorbide Mononitrate (Imdur) 30 mg DAILY 06/25/20 17:00 06/27/20 07:36 30 MG Pantoprazole Sodium (Protonix) 40 mg DAILYAC 06/26/20 07:30 06/27/20 07:37 40 MG Piperacillin Sod/ Tazobactam Sod 2.25 gm/Sodium Chloride 50 ml @ 100 mls/hr Q8HRS 06/25/20 16:00 06/27/20 14:33 100 MLS/HR Sodium Chloride 1,000 ml @ 400 mls/hr Q2H30M PRN 06/26/20 08:22 06/26/20 20:21 DC Results All relevant outside records, renal labs, imaging studies, telemetry/EKG's were reviewed. Justicifation of Admission Dx: Justifications for Admission: Justification of Admission Dx: Yes REGINA PRESSLEY MD Jun 27, 2020 15:32
--- NOTE | 2020-06-27 18:31 | CONS ---
DATE OF CONSULTATION: 06/27/2020 INFECTIOUS DISEASE CONSULTATION REFERRING PHYSICIAN: Dr. Seema Benitez. REASON FOR CONSULTATION: Antibiotic management. HISTORY OF PRESENT ILLNESS: The patient is a 74-year-old -[place] male who presented to the ER at [facility] with complaints of abdominal pain and diarrhea. He underwent a colonoscopy last Monday. He started having some abdominal pain on Monday, which gradually got worse. He also has constipation post-colonoscopy. He was given 3-4 doses of laxatives for the last couple of days, subsequent to which he started having loose bowel movements. He also had urinary retention requiring Machado placement with 900 mL of urine output. He denied any fevers, chills, nausea or vomiting. He denied being on any antibiotics recently. Yesterday evening, he had a fever of 100.4. White count on yesterday was 6.4, hemoglobin of 11.8, platelets of 156. He has been on dialysis for end-stage renal disease through right upper extremity fistula. The patient underwent CT scan of the abdomen and pelvis, which basically showed urinary distention with mild bilateral hydroureteronephrosis with extensive periureteral and pericystic inflammatory changes finding, most favored cystitis and pyelitis, correlate clinically for pyelonephritis. Prominence of the renal collecting system may reflect stasis versus bladder outlet obstruction. He has prostatomegaly with hypoattenuation area in the right peripheral zone, measuring 2.5 cm, correlate for symptoms and signs of prostatitis. Mild diverticulosis without adjacent inflammatory changes. External iliac lymph node measuring 9.5 mm is suggestive of reactive changes and indeterminate inferior pole right renal lesion measuring about 1.6 cm. Further characterization of renal mass was found and apparently the patient was transferred to [facility] as he is requiring hemodialysis and to consult rubber cutter and shape carver and possible diverticulitis. The patient had been started on Cipro and Flagyl prior to transfer.He is currently on Zosyn . ID consultation has been requested for antibiotic management. PAST MEDICAL HISTORY: Benign prostatic enlargement, chronic renal failure, urinary retention, osteoarthritis, COPD, CHF, hypertension, hyperlipidemia, NICM, paroxysmal AFib, atrial flutter and SVT, CHF, left upper extremity fistula, TURP. PAST SURGICAL HISTORY: History of pacemaker, right arm brachiocephalic atriovenous fistula, AICD. SOCIAL HISTORY: No alcohol, drug or, smoking. Lives with his family. CURRENT MEDICATION: Zosyn, furosemide, amlodipine, pantoprazole, Lipitor, isosorbide, hydralazine, Lomotil. ALLERGIES: No known drug allergies: FAMILY HISTORY: As per HPI. REVIEW OF SYSTEMS: Negative except for above in HPI. PHYSICAL EXAMINATION: VITAL SIGNS: Temperature 98.6, T-max 100.4, pulse 81, respiratory rate 18, blood pressure 111/68, oxygen saturation 96% on room air. GENERAL: Alert, oriented x 3 male in no acute distress, lying comfortably in bed. HEENT: Normocephalic, atraumatic, anicteric. No thrush. NECK: Supple, no JVD, no thyromegaly. LUNGS: Clear bilaterally. No wheezing. HEART: S1, S2. No gallops or murmurs. ABDOMEN: Soft, nontender and nondistended. No rebound. No guarding. GENITOURINARY: Machado in place. NEUROLOGIC: Alert, oriented x 3, grossly nonfocal. PSYCHIATRIC: Cooperative, appropriate mood and affect. Fistula site looks clean. LABORATORY DATA: WBC 6.4, hemoglobin 11.8, hematocrit 36, platelets 156. Sodium 149, potassium 4.3, chloride 100, bicarbonate 18, BUN 91, creatinine 4.2, glucose 68. IMAGING: As above. IMPRESSION: 1. Febrile illness 2. Abdominal pain.Constipation now Diarrhea after laxatives for 3 days. C difficile negative at [place]. 3. Urinary retention, status post Machado placement. 4. End-stage renal disease, on hemodialysis with history of noncompliance. 5. Chronic anemia. 6. History of villous adenoma and right colon resection. 7. Obstructive uropathy on CT abdomen 8. History of lower gastrointestinal bleed, most likely diverticulosis, self-limited. 9. Renal mass. 10. Status post treatment with Cipro and Flagyl. 11. Nonischemic cardiomyopathy. Status post automatic implantable cardioverter-defibrillator. RECOMMENDATIONS: 1. Continue empiric Zosyn for now 2. Follow up labs and cultures from [place]. 3. Continue supportive care. 4. The patient needs Urology evaluation. 5. Continue supportive care. Discussed with nursing staff. Discussed with Dr. Benitez Thank you for allowing me to participate in this patient's care. If you have any questions, do not hesitate to contact me. ELLEN SOLORZANO MD DR: DARWIN/eloy JOB#: [id number] / [id number] ADDIS
[2020-06-27 19:10] VITALS: BP 128/67
[2020-06-27] MEDS: ATORVASTATIN CALCIUM 20 MG TABLET PO SCH (21:14)
[2020-06-27 23:18] VITALS: BP 122/62
[2020-06-27] MEDS ORDERED: DICLOFENAC SODIUM 1% TOPICAL GEL 100GM TUBE. TP ONE (23:30)
[2020-06-27] MEDS ORDERED: MECLIZINE HCL 12.5 MG TABLET. PO PRN (23:30)
[2020-06-27] MEDS ORDERED: ACETAMINOPHEN 325 MG TABLET. PO PRN (23:30)
[2020-06-27] MEDS: DICLOFENAC SODIUM 1% TOPICAL GEL 100GM TUBE. TP SCH (23:39)
[2020-06-28 03:04] VITALS: BP 129/57
[2020-06-28] MEDS: DIPHENOXYLATE/ATROPINE TABLET. PO SCH ×2 (05:54→12:00)
[2020-06-28] MEDS: PIPERACILLIN/TAZOBACTAM 2.25 GM in IV NORMAL SALINE 50ML 50 ML IV SCH ×2 (05:55→14:00)
[2020-06-28 07:00] VITALS: BP 121/67
--- NOTE | 2020-06-28 08:04 | PDOC ---
Infectious Disease Note Subjective: Subjective Patient without complaints Diarrhea resolved Denies fever, chills, nausea, vomiting, shortness of breath,abdominal pain, rash or symptom Otherwise as above T-max 100.3 Vital Signs: Vital Signs Vital Signs Date Time Temp Pulse Resp B/P (MAP) Pulse Ox O2 Delivery O2 Flow Rate FiO2 06/28/20 03:04 99.0 85 16 129/57 (81) 95 Room Air 99.0 Physical Exam: PHYSICAL EXAM GENERAL: Alert, oriented x 3 male in no acute distress, lying comfortably in bed. HEENT: Normocephalic, atraumatic, anicteric. No thrush. NECK: Supple, no JVD, no thyromegaly. LUNGS: Clear bilaterally. No wheezing. HEART: S1, S2. No gallops or murmurs. ABDOMEN: Soft, nontender and nondistended. No rebound. No guarding. GENITOURINARY: Machado in place. NEUROLOGIC: Alert, oriented x 3, grossly nonfocal. PSYCHIATRIC: Cooperative, appropriate mood and affect. Fistula site looks clean. Medications: Inpatient Meds: Current Medications Medications (Trade) Dose Ordered Sig/Travis Start Time Stop Time Status Last Admin Dose Admin Acetaminophen (Tylenol) 650 mg PRN Q4HRS PRN 06/27/20 23:30 06/27/20 23:36 650 MG Albumin Human 200 ml @ 200 mls/hr 1X PRN PRN 06/26/20 08:30 06/26/20 14:29 DC Amlodipine Besylate (Norvasc) 10 mg DAILY 06/26/20 09:00 06/27/20 07:38 10 MG Atorvastatin Calcium (Lipitor) 20 mg QHS 06/25/20 21:00 06/27/20 21:14 20 MG Diclofenac Sodium (Voltaren) 1 jovita 1X ONCE 06/27/20 23:30 06/27/20 23:31 UNV Diphenhydramine HCl (Benadryl) 25 mg 1X PRN PRN 06/26/20 08:30 06/27/20 08:29 DC Diphenoxylate HCl/ Atropine (Lomotil) 1 tab Q6H 06/27/20 12:00 06/28/20 05:54 1 TAB Furosemide (Lasix) 80 mg DAILY 06/26/20 09:00 06/27/20 07:36 80 MG Hydralazine HCl (Apresoline) 50 mg TID 06/25/20 16:00 06/27/20 21:14 50 MG Info (PHARMACY MONITORING -- do not chart) 1 each PRN DAILY PRN 06/26/20 08:30 Isosorbide Mononitrate (Imdur) 30 mg DAILY 06/25/20 17:00 06/27/20 07:36 30 MG Meclizine HCl (Antivert) 12.5 mg PRN Q6HRS PRN 06/27/20 23:30 Pantoprazole Sodium (Protonix) 40 mg DAILYAC 06/26/20 07:30 06/27/20 07:37 40 MG Piperacillin Sod/ Tazobactam Sod 2.25 gm/Sodium Chloride 50 ml @ 100 mls/hr Q8HRS 06/25/20 16:00 06/28/20 05:55 100 MLS/HR Sodium Chloride 1,000 ml @ 400 mls/hr Q2H30M PRN 06/26/20 08:22 06/26/20 20:21 DC Objective: Assessment: 1. Febrile illness resolved 2. Abdominal pain.Constipation now Diarrhea after laxatives for 3 days. C difficile negative at [place]. Diarrhea resolved 3. Urinary retention, status post Machado placement. UA negative at [facility] 4. End-stage renal disease, on hemodialysis with history of noncompliance. 5. Chronic anemia. 6. History of villous adenoma and right colon resection. 7. Obstructive uropathy with extensive changes including prostatomegaly on CT at [facility] 8. History of lower gastrointestinal bleed, most likely diverticulosis, self-limited. 9. Renal mass. 10. Status post treatment with Cipro and Flagyl. 11. Nonischemic cardiomyopathy. Status post automatic implantable cardioverter-defibrillator. Plan: Plan of Care Patient is eager for discharge home today Hemodynamically stable UA negative C. difficile negative Can discharge on p.o. Augmentin 500 mg p.o. daily for 5 days Follow-up with urology as outpatient Follow-up with PCP Discussed with nursing staff. Discussed with ELLEN Acosta MD Jun 28, 2020 08:04
[2020-06-28] MEDS: DICLOFENAC SODIUM 1% TOPICAL GEL 100GM TUBE. TP SCH (09:00)
[2020-06-28] MEDS: PANTOPRAZOLE 40 MG TABLET.DR. PO SCH (09:02)
[2020-06-28] MEDS: ISOSORBIDE MONONITRATE ER 30 MG TAB.ER.24H PO SCH (09:03)
[2020-06-28] MEDS: FUROSEMIDE 80 MG TABLET. PO SCH (09:03)
[2020-06-28] MEDS: amLODIPine BESYLATE 10 MG TABLET PO SCH (09:04)
--- NOTE | 2020-06-28 10:44 | DS ---
DATE OF DISCHARGE: HOSPITAL COURSE: The patient is a 74-year-old male patient who was admitted for questionable diverticulitis, although he had a colonoscopy done about a week ago. He apparently has been taking laxatives and had had multiple episodes of diarrhea; however investigation at [facility] showed that the patient has enlarged prostate with urinary retention and bilateral hydroureteronephrosis for which an indwelling Machado catheter was placed. We did treat him with IV antibiotic in the form of Zosyn. He was dialyzed and his diarrhea has largely subsided; however, we did consult the it application administrator as well as the Infectious Disease and because of urinary retention, he has an indwelling Machado catheter and it was recommended the patient should follow with the urologist. PHYSICAL EXAMINATION: GENERAL: When I saw him this morning, he was resting flat, comfortably in bed, in no apparent respiratory distress. No pallor, jaundice, cyanosis or thyromegaly. No jugular venous distention. No lower limb edema. VITAL SIGNS: His heart rate was 84, blood pressure was 121/67, temperature was 98.5, respiratory rate was 18 and oxygen saturation was 96% on room air. HEAD, EYES, EARS, NOSE AND THROAT: Normocephalic, atraumatic. NECK: Supple. HEART: Showed normal first and second heart sounds. No gallop or murmur. CHEST: Clear to auscultation. No crepitation or rhonchi. ABDOMEN: Distended, soft, nontender. No guarding or rigidity. No organomegaly. All hernial orifice intact. Bowel sounds normal. NEUROLOGIC: He was awake, alert, responding appropriately. All cranial nerves are intact. He moves extremities without difficulty, ambulates without assistance or assistive devices. His intake and output are incompletely recorded. LABORATORY DATA: His lab work showed his white cell count was 6400, hemoglobin 11.8, hematocrit 36, MCV 95, and platelet count of 156,000. His chemistry is variable as he is hemodialysis dependent. DISCHARGE MEDICATIONS: He was discharged home to continue on following medications: Amlodipine 10 mg once a day, aspirin 81 mg once a day, atorvastatin calcium 20 mg at bedtime, Auryxia 210 mg 3 times a day with meals. He has Dialyvite 3000 1 tablet once a day, furosemide 80 mg daily, hydralazine 50 mg 3 times a day, isosorbide mononitrate 30 mg daily, Protonix 40 mg once a day and sodium bicarbonate 650 mg twice a day. FINAL DISCHARGE DIAGNOSES: 1. End-stage renal disease, on hemodialysis Monday, Monday, Monday. 2. The patient has benign prostatic hypertrophy. 3. Urinary retention with mild bilateral hydroureteronephrosis and extensive ureteral empiric pericystic inflammatory changes as well as prostatectomy and hypoattenuation area in the right peripheral zone and other medical problems including nonischemic cardiomyopathy for which he has an automatic implantable cardioverter defibrillator. He has gastrointestinal bleed, most likely diverticular and hypertension. The patient was discharged home with an indwelling Machado catheter with a leg bag and was advised to make an appointment with Dr. Navarro so that arrangement can be made for him to be seen by a urologist for his enlarged prostate and urinary retention. KATHIA POSADA MD DR: EDIE/eloy JOB#: [id number] / [id number] DAHLIA Edwards MD
[2020-06-28 11:00] VITALS: BP 127/61
--- NOTE | 2020-06-28 14:27 | PDOC ---
DATE OF SERVICE DATE: 06/28/20 TIME: 14:27 SUBJECTIVE ROS No complaints OBJECTIVE Vital Signs Vital Signs Date Time Temp Pulse Resp B/P (MAP) Pulse Ox O2 Delivery O2 Flow Rate FiO2 06/28/20 11:00 97.4 84 19 127/61 (83) 97 Room Air 97.4 I & 0 Intake and Output 06/28/20 07:00 Intake Total 480 ml Output Total 100 ml Balance 380 ml Intake Oral 480 ml Output Urine Total 100 ml PHYSICAL EXAM Physical Exam GENERAL: no acute distress, lying comfortably in bed. HEENT: OM moist NECK: Supple, LUNGS: Clear bilaterally. HEART: S1, S2. ABDOMEN: Soft, nontender and nondistended. GENITOURINARY: [place] in place. NEUROLOGIC: Alert, oriented x 3, grossly nonfocal. DIAGNOSIS/ASSESSMENT Assessment & Plan ESRD.- On HD MWF under Dr. Sethi's care at No indication for HD today CT scan of the abdomen and pelvis at [place] - urinary distention with mild bilateral hydroureteronephrosis with extensive periureteral and pericystic inflammatory changes finding most favor cystitis and pyelitis Prominence of the renal collecting system may reflect stasis versus bladder outlet obstruction. He has prostatomegaly with a hypoattenuation area in the right peripheral zone measuring 2.5 cm, correlate for signs and symptoms of prostatitis, mild diverticulosis No past imaging available, Not sure if this is chronic finding and possible cause of ESRD . UA unremarkable at [facility] BPH as above Indeterminate inferior pole left renal lesion measuring 1.6 cm. Diverticulitis- Per GI Anemia - No indication for CARLOTA DIAGNOSIS/ASSESSMENT Assessment & Plan ESRD/ARF: Current fluid and E-lyte status does not necessitate emergent need for dialysis. Will re-evaluate for dialysis in the am and continue on [] schedule. ANEMIA; [] Aranap as ordered, [] Transfuse [] with next HD as needed HTN: Current BP meds as reviewed. See orders for changes. BONE & MINERAL: [] Discussed Plan of Care with family [] at bedside [] over the phone COMMENT/RELEVANT DATA Meds Current Medications Medications (Trade) Dose Ordered Sig/Travis Start Time Stop Time Status Last Admin Dose Admin Acetaminophen (Tylenol) 650 mg PRN Q4HRS PRN 06/27/20 23:30 06/27/20 23:36 650 MG Albumin Human 200 ml @ 200 mls/hr 1X PRN PRN 06/26/20 08:30 06/26/20 14:29 DC Amlodipine Besylate (Norvasc) 10 mg DAILY 06/26/20 09:00 06/28/20 09:04 10 MG Atorvastatin Calcium (Lipitor) 20 mg QHS 06/25/20 21:00 06/27/20 21:14 20 MG Diclofenac Sodium (Voltaren) 1 jovita 1X ONCE 06/27/20 23:30 06/27/20 23:31 UNV Diphenhydramine HCl (Benadryl) 25 mg 1X PRN PRN 06/26/20 08:30 06/27/20 08:29 DC Diphenoxylate HCl/ Atropine (Lomotil) 1 tab Q6H 06/27/20 12:00 06/28/20 05:54 1 TAB Furosemide (Lasix) 80 mg DAILY 06/26/20 09:00 06/28/20 09:03 80 MG Hydralazine HCl (Apresoline) 50 mg TID 06/25/20 16:00 06/28/20 09:04 50 MG Info (PHARMACY MONITORING -- do not chart) 1 each PRN DAILY PRN 06/26/20 08:30 Isosorbide Mononitrate (Imdur) 30 mg DAILY 06/25/20 17:00 06/28/20 09:03 30 MG Meclizine HCl (Antivert) 12.5 mg PRN Q6HRS PRN 06/27/20 23:30 Pantoprazole Sodium (Protonix) 40 mg DAILYAC 06/26/20 07:30 06/28/20 09:02 40 MG Piperacillin Sod/ Tazobactam Sod 2.25 gm/Sodium Chloride 50 ml @ 100 mls/hr Q8HRS 06/25/20 16:00 06/28/20 05:55 100 MLS/HR Sodium Chloride 1,000 ml @ 400 mls/hr Q2H30M PRN 06/26/20 08:22 06/26/20 20:21 DC Results All relevant outside records, renal labs, imaging studies, telemetry/EKG's were reviewed. Justicifation of Admission Dx: Justifications for Admission: Justification of Admission Dx: Yes REGINA PRESSLEY MD Jun 28, 2020 14:27
--- NOTE | 2020-06-28 15:59 | NUR ---
4015 Patient discharged to home with family. Urinary bay remains in place for urinary retention with hydronephrosis. He will call his primary doctor in am to follow up with urologist. Dr Benitez sent his discharge summary to pt's primary. IV site discontinued without difficulty. Pt states he understands his discharge instructions and follow up instructions. His home medications were returned to him from pharmacy.
== END 2020-06-28 14:45 | disposition home or self-care (01) | DRG 377 ==
LOC: 4 NORTH 14:46
PROVIDERS: ADMIT Internal Medicine; ATTEND Internal Medicine
PROC: 5A1D70Z Performance of Urinary Filtration, Intermittent, Less than 6 Hours Per Day (ICD-10-PCS; principal; 2020-06-26)
DX: K57.33 Diverticulitis of large intestine without perforation or abscess with bleeding (principal); N18.6 End stage renal disease; N13.30 Unspecified hydronephrosis; I42.8 Other cardiomyopathies; I13.2 Hypertensive heart and chronic kidney disease with heart failure and with stage 5 chronic kidney disease, or end stage renal disease; N40.1 Benign prostatic hyperplasia with lower urinary tract symptoms; R33.8 Other retention of urine; Z99.2 Dependence on renal dialysis; D63.1 Anemia in chronic kidney disease; N13.9 Obstructive and reflux uropathy, unspecified; I48.0 Paroxysmal atrial fibrillation; Z79.01 Long term (current) use of anticoagulants; J44.9 Chronic obstructive pulmonary disease, unspecified; I50.9 Heart failure, unspecified
CPT/HCPCS: 36415; 80048; 85027; J2543; G0378

== ENCOUNTER 2021-01-08 17:56 | Inpatient (IN) | payer MEDICARE ==
[~2021-01-08] VITALS: Ht 175.3 cm; Wt 83.3 kg
[~2021-01-08 17:56] MED LIST changes: -ISOS30TA4 PO; +ISOS30TA68 PO
[2021-01-08] MEDS ORDERED: DEXTROSE 50% 25 GM / 50ML DISP.SYRIN. IV ONE ×3 (18:00→19:45)
[2021-01-08 18:39] LABS: BASO # 0.1 x10^3/uL (0.0-0.2); BASO % 1 % (0-3); EOS # 0.1 x10^3/uL (0.0-0.7); EOS % 1 % (0-3); HEMATOCRIT 39.9 % (39.0-53.0); HEMOGLOBIN 12.8 g/dL (13.0-17.5); LYMPH # 1.3 x10^3/uL (1.0-4.8); LYMPH % 9 % (24-48); MEAN CORPUSCULAR HEMOGLOBIN 29 pg (25-35); MEAN CORPUSCULAR HGB CONC 32 g/dL (31-37); MEAN CORPUSCULAR VOLUME 90 fL (79-100); MONO # 1.3 x10^3/uL (0.0-1.1); MONO % 9 % (0-9); NEUT # 11.7 x10^3/uL (1.8-7.7); NEUT % 81 % (31-73); PLATELET COUNT 139 x10^3/uL (140-400); RED BLOOD COUNT 4.42 x10^6/uL (4.30-5.70); RED CELL DISTRIBUTION WIDTH 17.5 % (11.5-14.5); WHITE BLOOD COUNT 14.5 x10^3/uL (4.0-11.0)
--- NOTE | 2021-01-08 18:44 | PHYS DOC ---
Past Medical History Smoking Status: Former Smoker General Adult EDM: Chief Complaint: HYPOGLYCEMIA HPI: HPI: Patient is a 75 year old female male with past medical history end-stage renal disease who dialyzes Monday, hypertension, diabetes, hyperlipidem ia presents for evaluation of altered mental status. EMS was called by a neighbor who found the patient to be confused. Upon EMS arrival patient was alert to name and self but did not know time and place. EMS checked patient's blood sugar and found it to be in the 50s. EMS treated patient with half amp of D50 with improvement of blood sugar to his 70 and improvement to patient's mental status back to a/0x4. On arrival to the emergency department patient's blood sugar was then rechecked and found to be in the 50s. Patient was then treated with a full amp of D50. At the time of my exam patient has no complaints. He tells me he missed dialysis today and has not been taking his medications because he doesnt have money. Patient is A/Ox4, He denies any headache, chest pain or shortness of breath. Review of Systems: Review of Systems: Review of systems: Constitutional symptoms- No fever, no chills. Eyes- No Discharge, No Visual Loss Respiratory symptoms- No shortness of breath, No wheezing, No Dyspnea on Exertion Cardiovascular Systems; No chest pain, No Palpitations, No syncope Gastrointestinal symptoms: NO abdominal pain, no nausea, no vomiting or diarrhea. Genitourinary symptoms: No dysuria. Musculoskeletal symptoms: No back pain No extremity pain. NEUROLOGICAL Symptoms: No headache, no generalized weakness; No focal Weakness positive altered mental status ENDO Positive hypoglycemia Heart Score: C/O Chest Pain: N/A Risk Factors: Risk Factors: DM, Current or recent (<one month) smoker, HTN, HLP, family history of CAD, obesity. Risk Scores: Score 0 - 3: 2.5% MACE over next 6 weeks - Discharge Home Score 4 - 6: 20.3% MACE over next 6 weeks - Admit for Clinical Observation Score 7 - 10: 72.7% MACE over next 6 weeks - Early Invasive Strategies Current Medications: Current Medications Medications (Trade) Dose Ordered Sig/Travis Start Time Stop Time Status Last Admin Dose Admin Dextrose (Dextrose 50%-Water Syringe) 25 gm 1X ONCE 01/08/21 18:15 01/08/21 18:16 DC 01/08/21 18:09 25 GM Allergies: Allergies: Allergies Coded Allergies Type Severity Reaction Last Updated Verified No Known Drug Allergies 06/19/20 No Physical Exam: PE: General: alert, no acute distress. Skin: warm, dry and intact. Head:: Normocephalic, atraumatic. Neck: Trachea midline. Eyes: EOMI, Normal conjunctiva, No drainage CARDIOVASCULAR: Regular rate and rhythm RESPIRATORY: No respiratory distress Back: Full range of motion. MUSCULOSKELETAL: Full range of motion of bilateral upper and lower extremities. GASTROINTESTINAL: Abdomen soft without rebound or guarding. NEUROLOGICAL: Alert and noted to person, place and time. No neurological de ficits observed Psychiatric: Cooperative. Normal judgment EKG: EKG: [] 1802 heart rate [address] elevation no ST depression no acute UT Radiology/Procedures: Radiology/Procedures: [] Impression: AP view was taken of the chest. The heart is enlarged. There is mild vascular congestion. There is no confluent pneumonia. There is no pleural effusion. Left pacemaker is unchanged. IMPRESSION: 1. Cardiomegaly. 2. Mild vascular congestion. Course & Med Decision Making: Course & Med Decision Making Pertinent Labs and Imaging studies reviewed. (See chart for details) [] Was evaluated for chief complaint. Work-up consisted of laboratory analysis radiologic imaging and EKG. On arrival patient's blood sugar in the 50s he was treated with D50 with impr ovement of blood sugars in the 120s. Patient was fed. Patient noted to have several abnormal labs which included a potassium of 8 point no repeat resulted at 8.5. Patient was also noted to have an elevated creatinine and troponin. Trop resulted at 1.9. EKG no ST elevation ST depression patient denied any chest pain. Treatment for hyper K included calcium, insulin glucose, Kayexalate, albuterol. Discussed the patient with Dr Garay nephrology patient will be set up for dialysis. Babtaunde Disclaimer: Babatunde Disclaimer: This electronic medical record was generated, in whole or in part, using a voice recognition dictation system. Departure Departure Impression: Primary Impression: CKD (chronic kidney disease) Additional Impressions: End-stage renal disease on hemodialysis Hypoglycemia Hyperkalemia Elevated troponin Disposition: ADMITTED INPATIENT Admitting Phys[facility]: [facility] Condition: STABLE Referrals: DAHLIA CHURCHILL MD (PCP) Critical Care Time Critical care time was [35] minutes exclusive of procedures. DEBORAH GELLER DO Jan 08, 2021 18:44
--- NOTE | 2021-01-08 18:48 | RAD ---
Portable AP chest. HISTORY: Missed dialysis. AP view was taken of the chest. The heart is enlarged. There is mild vascular congestion. There is no confluent pneumonia. There is no pleural effusion. Left pacemaker is unchanged. IMPRESSION: 1. Cardiomegaly. 2. Mild vascular congestion. Electronically signed by: Miguel Feliz MD (01/08/2021 6:46 PM) [facility]
[2021-01-08 19:00] LABS: ALBUMIN 3.5 g/dL (3.4-5.0); ALBUMIN/GLOBULIN RATIO 1.1 (1.0-1.7); CALCIUM 7.4 mg/dL (8.5-10.1); CREATININE 18.4 mg/dL (0.7-1.3); GFR 3.1; TOTAL BILIRUBIN 6.4 mg/dL (0.2-1.0); TOTAL PROTEIN 6.7 g/dL (6.4-8.2)
[2021-01-08] MEDS ORDERED: SODIUM POLYSTYRENE SULFON/SORB 15 GM/60 ML ORAL.SUSP. PO ONE (19:45)
[2021-01-08] MEDS ORDERED: ALBUTEROL SULFATE 2.5 MG/3 ML NEBU. CONT NEB ONE (19:45)
[2021-01-08] MEDS ORDERED: ONDANSETRON PF 4 MG/2 ML VIAL. IV PRN (19:45)
[2021-01-08] MEDS ORDERED: INSULIN REGULAR 100 UNIT/ML 3ML VIAL. IV ONE (19:45)
[2021-01-08] MEDS ORDERED: CALCIUM GLUCONATE 1,000 MG/10 ML VIAL. IVP ONE (19:45)
[2021-01-08] MEDS ORDERED: MORPHINE SULFATE 2 MG/ML VIAL. IV PRN (19:45)
[2021-01-08 21:45] VITALS: BP 140/73
[2021-01-08 22:00] VITALS: BP 131/94
[2021-01-08 22:15] VITALS: BP 137/78
[2021-01-08 22:30] VITALS: BP 129/84
[2021-01-08] MEDS ORDERED: IV NORMAL SALINE 1000ML BAG 1,000 ML IV PRN ×2 (22:45)
[2021-01-08] MEDS ORDERED: ALBUMIN HUMAN 25% 200 ML IV PRN (22:45)
[2021-01-08] MEDS ORDERED: DIALYSIS PATIENT. MC PRN (22:45)
[2021-01-08] MEDS ORDERED: diphenhydrAMINE 50 MG/ML VIAL IV PRN ×2 (22:45)
[2021-01-08 23:00] VITALS: BP 151/72
[2021-01-09] VITALS (22 sets, daily range): BP systolic 110–166; BP diastolic 73–91
[2021-01-09 01:43] LABS: BASE EXCESS ABG 3 mmol/L (-3-3); HCO3 ABG 23 mmol/L (21-28); PCO2 ABG 25 mmHg (35-46); SAT O2 ABG 95 % (92-99)
[2021-01-09 03:48] LABS: FIO2 ABG 21
--- NOTE | 2021-01-09 05:30 | NUR ---
Pt was admitted last evening with K+ 8.5. Dialysis nurse, Suresh, here to do patient's dialysis. 4 hour run was done but no fluid was removed. Pt is alert at times but confused. Says his ex- is his doctor, gave his phone when asked his name, and contradicted himself when asked admit questions. Admission deferred until he is more lucid. K+ down to 3 after dialysis. Trop was elevated and Dr. Ames was notified. No new orders. Placed on Bipap when patient was seen to have periods of sleep apnea. Will continue to monitor.
--- NOTE | 2021-01-09 08:25 | CONS ---
DATE OF CONSULTATION: 01/09/2021 REASON FOR CONSULTATION: Elevated troponin. HISTORY OF PRESENT ILLNESS: The patient is a pleasant 75-year-old man who was brought to the hospital in setting of mental status changes. He is well known to our service with a prior history of atrial fibrillation and cardiomyopathy who had an ICD and unfortunately due to some psychosocial issues, he apparently has not been attending dialysis for about 2 weeks and has not been eating at home. Upon arrival to the ER, he was noted to have significant hyperkalemia and has been admitted. He has initially been dialyzed and his potassium is improved remarkably to 3.0. He had a peak troponin of 2.1 upon initial arrival to the hospital in the setting of significant electrolyte abnormalities and elevated blood pressure. At this present time, he still appears to be confused, but denies any chest pain or dyspnea and is wanting to go home. No other acute issues to report. PAST MEDICAL HISTORY: 1. Presumed nonischemic cardiomyopathy with ejection fraction of 35%, status post ICD. 2. Hypertension. 3. End-stage renal disease. 4. Dyslipidemia. 5. Atrial fibrillation, not on anticoagulation initially due to prior history of GI bleed. SOCIAL HISTORY: The patient is and he lives by himself. He denies any alcohol, tobacco or illicit drug use. ALLERGIES: No known drug allergies. REVIEW OF SYSTEMS: Unable to be obtained due to the patient's mentation. PHYSICAL EXAMINATION: VITAL SIGNS: Afebrile, 120, 21, 137/74, 98% on 2 liters. GENERAL: He is alert and oriented to self, but not place and time. HEAD AND NECK: Unremarkable. CARDIOVASCULAR: Tachycardic without any obvious murmurs, rubs or gallops. LUNGS: Notable for decreased breath sounds at the bases. ABDOMEN: Soft, nontender, nondistended. EXTREMITIES: Did not have any edema. NEUROLOGIC: No focal deficits. MUSCULOSKELETAL: No trauma. PSYCHIATRIC: He is confused and appears emaciated and probably has not been able to take care of himself. DIAGNOSTIC STUDIES: As noted, hemoglobin and platelets are grossly unremarkable with a potassium of 3.0, which was initially 8.1. Troponin was peaked at 2.1. EKG demonstrates atrial flutter at a heart rate of 120. Echocardiogram in 11/07 revealed an ejection fraction of 35% without any significant valvular heart disease. IMPRESSION: 1. Acute metabolic encephalopathy. 2. Prior history of nonischemic cardiomyopathy. 3. Atrial fibrillation, not on anticoagulation. No prior history of anemia. 4. Dyslipidemia. RECOMMENDATIONS: 1. Initiate metoprolol 25 mg p.o. q. 6 hours. 2. Initiate anticoagulation tomorrow if no other acute issues are noted overnight for his history of atrial fibrillation. 3. Continue treatment per Nephrology service for his hyperkalemia and mental status changes. Once the patient's mentation is improved, we will ultimately have a goals of care discussion as the patient previously has been not inclined to follow through with appointments or medical therapy. HANK DR: Alex TID: [id number]
[2021-01-09] MEDS ORDERED: POTASSIUM CHLORIDE 20 MEQ TABLET.ER. PO ONE (10:00)
--- NOTE | 2021-01-09 11:18 | PDOC2 ---
CONSULT Date of Consult Date of Consult DATE: 01/09/21 TIME: 11:03 Reason for Consult Reason for Consult: HIGH K Referring Physician Referring Physician: FAY Identification/Chief Complaint Chief Complaint CONFUSION History of Present Illness Reason for Visit: THIS IS A 75 YR OLD WITH ESRD ON HD MWF. WAS BROUGHT IN TO ER DUE TO CONFUSION. HE HAD MISSED HIS HD FOR SEVERAL TREATMENTS. ER CONTACTED ME LATE NIGHT FOR A K OF 8.5. HE HAS AFIB AND CM. HAS HAD AN ICD PLACED. CARDIOLOGY EVALUATION ONGOING AT THIS TIME. HE IS ALSO VERY HYPERTENSIVE ON ADMIT. HE HAS A HX OF NON COMPLIANCE. MILD LEUCOCYTOSIS NOTED. CXRAY NOTABLE FOR CM AND VASCULAR CONGESTION. EMS ALSO NOTED HYPOGLYCEMIA WITH A BG OF 50 AND HE WAS GIVEN D50. HE REMAINS CONFUSED BUT IMPROVED PER HIS . ADMITS TO NOT TAKING MEDS. LABS OTHERWISE C/W ESRD Past Medical History Cardiovascular: CHF, HTN, Hyperlipidemia, Other Pulmonary: COPD, Other GI: Constipation Heme/Onc: Anemia NOS Musculoskeletal: Osteoarthritis Renal/: Chronic renal failure, Benign prostatic enlarg. Endocrine: Hyperparathyroidism Past Surgical History Past Surgical History: Pacemaker Family History Family History: Hypertension, Other Social History No ALCOHOL: occassional Drugs: None Lives: with Family Current Problem List Problem List Problems Medical Problems: (1) Elevated troponin Status: Acute (2) Hyperkalemia Status: Acute (3) Hypoglycemia Status: Acute Current Medications Current Medications Current Medications Dextrose (Dextrose 50%-Water Syringe) 25 gm STK-MED ONCE IV ; Start 01/08/21 at 18:00; Stop 01/08/21 at 18:00; Status DC Dextrose (Dextrose 50%-Water Syringe) 25 gm 1X ONCE IV Last administered on 01/08/21at 18:09; Start 01/08/21 at 18:15; Stop 01/08/21 at 18:16; Status DC Calcium Gluconate (Calcium Gluconate) 1,000 mg 1X ONCE IVP Last administered on 01/08/21at 20:21; Start 01/08/21 at 19:45; Stop 01/08/21 at 19:53; Status DC Insulin Human Regular (HumuLIN R VIAL) 5 unit 1X ONCE IV Last administered on 01/08/21at 20:37; Start 01/08/21 at 19:45; Stop 01/08/21 at 19:53; Status DC Dextrose (Dextrose 50%-Water Syringe) 25 gm 1X ONCE IV Last administered on 01/08/21at 20:24; Start 01/08/21 at 19:45; Stop 01/08/21 at 19:53; Status DC Sodium Polystyrene Sulfonate (Kayexalate) 15 gm 1X ONCE PO Last administered on 01/08/21at 20:20; Start 01/08/21 at 19:45; Stop 01/08/21 at 19:53; Status DC Albuterol Sulfate (Ventolin Neb Soln) 10 mg 1X ONCE CONT NEB ; Start 01/08/21 at 19:45; Stop 01/08/21 at 19:53; Status DC Ondansetron HCl (Zofran) 4 mg PRN Q8HRS PRN IV NAUSEA/VOMITING; Start 01/08/21 at 19:45; Stop 01/09/21 at 19:44 Morphine Sulfate (Morphine Sulfate) 2 mg PRN Q2HR PRN IV PAIN; Start 01/08/21 at 19:45; Stop 01/09/21 at 19:44 Sodium Chloride 1,000 ml @ 1,000 mls/hr Q1H PRN IV hypotension; Start 01/08/21 at 22:45; Stop 01/09/21 at 04:44; Status DC Albumin Human 200 ml @ 200 mls/hr 1X PRN PRN IV Hypotension; Start 01/08/21 at 22:45; Stop 01/09/21 at 04:44; Status DC Diphenhydramine HCl (Benadryl) 25 mg 1X PRN PRN IV ITCHING; Start 01/08/21 at 22:45; Stop 01/09/21 at 22:44 Diphenhydramine HCl (Benadryl) 25 mg 1X PRN PRN IV ITCHING; Start 01/08/21 at 22:45; Stop 01/09/21 at 22:44 Sodium Chloride 1,000 ml @ 400 mls/hr Q2H30M PRN IV PATENCY; Start 01/08/21 at 22:45; Stop 01/09/21 at 10:44; Status DC Info (PHARMACY MONITORING -- do not chart) 1 each PRN DAILY PRN MC SEE COMMENTS; Start 01/08/21 at 22:45 Potassium Chloride (Klor-Con) 20 meq 1X ONCE PO ; Start 01/09/21 at 10:00; Stop 01/09/21 at 10:38; Status DC Active Scripts Active Isosorbide Mononitrate Er (Isosorbide Mononitrate) 30 Mg Tab.er.24h 30 Mg PO DAILY Reported [Auryxia] 2 tabs Tab 210 Mg PO TIDWMEALS Hydralazine Hcl 50 Mg Tablet 1 Tab PO TID Furosemide 80 Mg Tablet 1 Tab PO DAILY Atorvastatin Calcium 20 Mg Tablet 1 Tab PO DAILY Amlodipine Besylate 10 Mg Tablet 10 Mg PO DAILY Protonix (Pantoprazole Sodium) 40 Mg Tablet.dr 40 Mg PO DAILYAC Dialyvite 3,000 Tablet (Fa/Vit Bcomp&C/Se/Min Aa/Zn) 1 Each Tablet 1 Tab PO DAILY 30 Days Sodium Bicarbonate 650 Mg Tablet 1 Tab PO BID Adult Low Dose Aspirin Ec (Aspirin) 81 Mg Tablet.dr 81 Mg PO DAILY Allergies Allergies: Coded Allergies: No Known Drug Allergies (Unverified , 06/19/20) ROS General: YES: Fatigue, Malaise, Appetite PSYCHOLOGICAL ROS: YES: Anxiety Eyes: Yes Decreased vision HEENT: YES: [place] ALLERGY AND IMMUNOLOGY: YES: Seasonal Allergies Hematological and Lymphatic: YES: Other (OCC ACCESS BLEEDING) Respiratory: YES: Cough, Orthopnea, Shortness of breath Cardiovascular: yes Orthopnea, yes Edema Gastrointestinal: Yes Constipation Genitourinary: YES Other (ANURIA) Musculoskeletal: Yes Muscular Weakness Neurological: Yes Weakness Skin: Yes Dry Skin Physical Exam General: Alert, Cooperative, No acute distress HEENT: Atraumatic, PERRLA Lungs: Other (DECREASED AT BASES) Heart: Regular rate, Other (MR) Abdomen: Normal bowel sounds Extremities: No clubbing Skin: No breakdown Neuro: Normal speech, Other (SLIGHT CONFUSION) Psych/Mental Status: Other (FLAT AFFECT) MUSCULOSKELETAL: No deformity, No swelling Vitals VITALS Vital Signs Date Time Temp Pulse Resp B/P (MAP) Pulse Ox O2 Delivery O2 Flow Rate FiO2 01/09/21 10:17 98.1 122 110/75 (87) 96 Room Air 98.1 01/09/21 08:06 24 Labs Labs Laboratory Tests Test 01/08/21 17:59 01/08/21 18:25 01/08/21 19:10 01/08/21 19:50 Glucose (Fingerstick) 53 mg/dL (70-99) 119 mg/dL (70-99) White Blood Count 14.5 x10^3/uL (4.0-11.0) Red Blood Count 4.42 x10^6/uL (4.30-5.70) Hemoglobin 12.8 g/dL (13.0-17.5) Hematocrit 39.9 % (39.0-53.0) Mean Corpuscular Volume 90 fL (79-100) Mean Corpuscular Hemoglobin 29 pg (25-35) Mean Corpuscular Hemoglobin Concent 32 g/dL (31-37) Red Cell Distribution Width 17.5 % (11.5-14.5) Platelet Count 139 x10^3/uL (140-400) Neutrophils (%) (Auto) 81 % (31-73) Lymphocytes (%) (Auto) 9 % (24-48) Monocytes (%) (Auto) 9 % (0-9) Eosinophils (%) (Auto) 1 % (0-3) Basophils (%) (Auto) 1 % (0-3) Neutrophils # (Auto) 11.7 x10^3/uL (1.8-7.7) Lymphocytes # (Auto) 1.3 x10^3/uL (1.0-4.8) Monocytes # (Auto) 1.3 x10^3/uL (0.0-1.1) Eosinophils # (Auto) 0.1 x10^3/uL (0.0-0.7) Basophils # (Auto) 0.1 x10^3/uL (0.0-0.2) Sodium Level 147 mmol/L (136-145) Potassium Level 8.0 mmol/L (3.5-5.1) 8.5 mmol/L (3.5-5.1) Chloride Level 103 mmol/L (98-107) Carbon Dioxide Level 19 mmol/L (21-32) Anion Gap 25 (6-14) Blood Urea Nitrogen 203 mg/dL (8-26) Creatinine 18.4 mg/dL (0.7-1.3) Estimated GFR (Cockcroft-Gault) 3.1 BUN/Creatinine Ratio 11 (6-20) Glucose Level 133 mg/dL (70-99) Calcium Level 7.4 mg/dL (8.5-10.1) Total Bilirubin 6.4 mg/dL (0.2-1.0) Aspartate Amino Transf (AST/SGOT) 1232 U/L (15-37) Alanine Aminotransferase (ALT/SGPT) 2151 U/L (16-63) Alkaline Phosphatase 81 U/L (46-116) Troponin I Quantitative 1.954 ng/mL (0.000-0.055) Total Protein 6.7 g/dL (6.4-8.2) Albumin 3.5 g/dL (3.4-5.0) Albumin/Globulin Ratio 1.1 (1.0-1.7) Test 01/09/21 00:22 01/09/21 00:45 01/09/21 01:40 01/09/21 01:42 Glucose (Fingerstick) 100 mg/dL (70-99) 88 mg/dL (70-99) Potassium Level 3.0 mmol/L (3.5-5.1) Troponin I Quantitative 2.139 ng/mL (0.000-0.055) O2 Saturation 95 % (92-99) Arterial Blood pH 7.59 (7.35-7.45) Arterial Blood pCO2 at Patient Temp 25 mmHg (35-46) Arterial Blood pO2 at Patient Temp mmHg (65-108) Arterial Blood HCO3 23 mmol/L (21-28) Arterial Blood Base Excess 3 mmol/L (-3-3) FiO2 21 Test 01/09/21 06:15 01/09/21 10:34 Troponin I Quantitative 1.484 ng/mL (0.000-0.055) Glucose (Fingerstick) 77 mg/dL (70-99) Laboratory Tests Test 01/08/21 17:59 01/08/21 18:25 01/08/21 19:10 01/08/21 19:50 Glucose (Fingerstick) 53 mg/dL (70-99) 119 mg/dL (70-99) White Blood Count 14.5 x10^3/uL (4.0-11.0) Red Blood Count 4.42 x10^6/uL (4.30-5.70) Hemoglobin 12.8 g/dL (13.0-17.5) Hematocrit 39.9 % (39.0-53.0) Mean Corpuscular Volume 90 fL (79-100) Mean Corpuscular Hemoglobin 29 pg (25-35) Mean Corpuscular Hemoglobin Concent 32 g/dL (31-37) Red Cell Distribution Width 17.5 % (11.5-14.5) Platelet Count 139 x10^3/uL (140-400) Neutrophils (%) (Auto) 81 % (31-73) Lymphocytes (%) (Auto) 9 % (24-48) Monocytes (%) (Auto) 9 % (0-9) Eosinophils (%) (Auto) 1 % (0-3) Basophils (%) (Auto) 1 % (0-3) Neutrophils # (Auto) 11.7 x10^3/uL (1.8-7.7) Lymphocytes # (Auto) 1.3 x10^3/uL (1.0-4.8) Monocytes # (Auto) 1.3 x10^3/uL (0.0-1.1) Eosinophils # (Auto) 0.1 x10^3/uL (0.0-0.7) Basophils # (Auto) 0.1 x10^3/uL (0.0-0.2) Sodium Level 147 mmol/L (136-145) Potassium Level 8.0 mmol/L (3.5-5.1) 8.5 mmol/L (3.5-5.1) Chloride Level 103 mmol/L (98-107) Carbon Dioxide Level 19 mmol/L (21-32) Anion Gap 25 (6-14) Blood Urea Nitrogen 203 mg/dL (8-26) Creatinine 18.4 mg/dL (0.7-1.3) Estimated GFR (Cockcroft-Gault) 3.1 BUN/Creatinine Ratio 11 (6-20) Glucose Level 133 mg/dL (70-99) Calcium Level 7.4 mg/dL (8.5-10.1) Total Bilirubin 6.4 mg/dL (0.2-1.0) Aspartate Amino Transf (AST/SGOT) 1232 U/L (15-37) Alanine Aminotransferase (ALT/SGPT) 2151 U/L (16-63) Alkaline Phosphatase 81 U/L (46-116) Troponin I Quantitative 1.954 ng/mL (0.000-0.055) Total Protein 6.7 g/dL (6.4-8.2) Albumin 3.5 g/dL (3.4-5.0) Albumin/Globulin Ratio 1.1 (1.0-1.7) Test 01/09/21 00:22 01/09/21 00:45 01/09/21 01:40 01/09/21 01:42 Glucose (Fingerstick) 100 mg/dL (70-99) 88 mg/dL (70-99) Potassium Level 3.0 mmol/L (3.5-5.1) Troponin I Quantitative 2.139 ng/mL (0.000-0.055) O2 Saturation 95 % (92-99) Arterial Blood pH 7.59 (7.35-7.45) Arterial Blood pCO2 at Patient Temp 25 mmHg (35-46) Arterial Blood pO2 at Patient Temp mmHg (65-108) Arterial Blood HCO3 23 mmol/L (21-28) Arterial Blood Base Excess 3 mmol/L (-3-3) FiO2 21 Test 01/09/21 06:15 01/09/21 10:34 Troponin I Quantitative 1.484 ng/mL (0.000-0.055) Glucose (Fingerstick) 77 mg/dL (70-99) Images Images Portable AP chest. HISTORY: Missed dialysis. AP view was taken of the chest. The heart is enlarged. There is mild vascular congestion. There is no confluent pneumonia. There is no pleural effusion. Left pacemaker is unchanged. IMPRESSION: 1. Cardiomegaly. 2. Mild vascular congestion. Electronically signed by: Miguel Feliz MD (01/08/2021 6:46 PM) [facility] Assessment/Plan Assessment/Plan IMP LIFE THREATENING HYPERKALEMIA MET ENCEPHALOPATHY UREMIA ESRD ANEMIA HTN-MALIGNANT NON COMPLIANCE NON ISCHEMIC CM AFIB PLAN EMERGENT HD OVERNIGHT UF TOLERATED 1 K STANDARD DIALYSATE CARLOTA WHEN NEEDED ENC COMPLIANCE CARDIOLOGY EVAL AND TX WILL FOLLOW UPDATED AT BEDSIDE ETTA JO MD Jan 09, 2021 11:18
--- NOTE | 2021-01-09 11:41 | EKG ---
[facility] [address] [place] [address] Test Date: 2021-01-08 Test Time: 18:02:34 Pat Name: ULISES PICHARDO Department: Room: Gender: M Vegetable Cook: : [id number] Requested By: DEBORAH GELLER Order Number: [id number] Reading MD: Measurements Intervals [place] Rate: 106 P: 254 AR: 186 QRS: 257 QRSD: 116 T: 64 QT: 382 QTc: 509 Interpretive Statements SUPRAVENTRICULAR RHYTHM ABNORMAL RIGHT SUPERIOR AXIS DEVIATION INCOMPLETE RIGHT BUNDLE BRANCH BLOCK CONSIDER RIGHT VENTRICULAR HYPERTROPHY QRS(T) CONTOUR ABNORMALITY CONSISTENT WITH ANTERIOR INFARCT PROBABLY OLD CONSIDER HIGH LATERAL INFARCT CONSIDER INFERIOR INFARCT ABNORMAL ECG RI6.02 No previous ECG available for comparison
--- NOTE | 2021-01-09 12:55 | HP ---
ADMIT DATE: 01/08/2021 CHIEF COMPLAINT: Hypoglycemia. HISTORY OF PRESENT ILLNESS: The patient is a pleasant 75-year-old male who has not gone to dialysis for the past couple of weeks. I guess, he could not afford his medicines and he has not been taking those as well. EMS was called by a neighbor, who found the patient confused. His glucose was in the 50s. They gave him some D50 and transported him to the hospital. While in the ER, he is noted to have hyperkalemia with a potassium level of 8.5. His BUN is 203. Creatinine is 18.4. He is also volume overloaded, has atrial fibrillation. Troponin is also high at 2.1. The patient is now being admitted to the ICU where he has been examined. PAST MEDICAL HISTORY: Severe noncompliance, end-stage renal disease, hyperkalemia, diabetes, hypertension, hyperlipidemia, edema, CHF, GERD. PAST SURGICAL HISTORY: None. FAMILY HISTORY: Diabetes. SOCIAL HISTORY: He does not drink, smoke or take drugs. He is retired. MEDICATIONS: Reviewed. Please refer to the MRAD. REVIEW OF SYSTEMS: Unable to obtain, the patient is too confused. PHYSICAL EXAMINATION: VITALS: Within normal limits and are stable. GENERAL: He is pleasantly confused. HEENT: He does have some scleral icterus. EYES: Extraocular muscles are intact, pupils are equally round and reactive to light and accommodation. MUSCULOSKELETAL: Well developed, well nourished, good range of motion. ENDOCRINE: No thyromegaly was palpated. LYMPHATICS: No cervical chain or axillary nodes were noted. HEMATOPOIETIC: No bruising. NECK: Supple, no JVD, no thyromegaly was noted. LUNGS: Clear to auscultation in all lung wood without rhonchi or wheezing. HEART: RRR, S1, S2 present. Peripheral pulses intact. No obvious murmurs were noted. ABDOMEN: Soft, nontender. Positive bowel sounds no organomegaly, normal bowel sounds. EXTREMITIES: Without any cyanosis, clubbing, or edema. Pedal pulses intact, Homans sign is negative. NEUROLOGIC: He is pleasantly confused. PSYCHIATRIC: He is pleasantly confused. SKIN: No ulcerations or rashes, good skin turgor, no jaundice. VASCULAR: Good capillary refill, neurovascular bundle appears to be intact. LABORATORY DATA: Bilirubin is 6.4. Potassium was 8.5, he received treatment in the ER and is now down to 3. Troponin is high at 2.1. White count 14, hemoglobin 12, platelets 139. ABG shows a pH of 7.59, pCO2 of 25, pO2 was not listed, bicarbonate of 23 with 95% sat on room air. Chest x-ray shows cardiomegaly with vascular congestion. ASSESSMENT AND PLAN: Severe noncompliance, severe hyperkalemia, volume overload, congestive heart failure (acute on chronic systolic and diastolic), metabolic alkalosis, leukocytosis, anemia, elevated troponin, atrial fibrillation. The patient has been admitted to the ICU. We have consulted Cardiology and Nephrology. We will get him dialyzed. Trend his labs. Regarding the atrial fibrillation, Cardiology has started metoprolol and is considering anticoagulation. Hepatitis panel. Consult GI. P.r.n. morphine, p.r.n. Zofran. Home medications. Deep venous thrombosis prophylaxis. Full code. Prognosis is extremely guarded. CC time is [address]: Eva TID: [id number]
--- NOTE | 2021-01-09 17:21 | NUR ---
pt has been very cooperative and calm for most of the day. he insists that he can do things himself when in fact he needs assistance, but is very polite about the whole situation. He states that he really just wants to go home. he acts like he in depressed and has no will to take his pills or do his dialysis. Jaswant Dukes RN
[2021-01-10] VITALS (14 sets, daily range): BP systolic 119–152; BP diastolic 72–98
[2021-01-10 05:00] LABS: HEMATOCRIT 40.6 % (39.0-53.0); HEMOGLOBIN 13.1 g/dL (13.0-17.5); RED BLOOD COUNT 4.47 x10^6/uL (4.30-5.70); RED CELL DISTRIBUTION WIDTH 17.4 % (11.5-14.5); WHITE BLOOD COUNT 10.3 x10^3/uL (4.0-11.0)
[2021-01-10 05:29] LABS: CALCIUM 8.3 mg/dL (8.5-10.1); CREATININE 13.3 mg/dL (0.7-1.3); GFR 4.4; POTASSIUM 4.8 mmol/L (3.5-5.1)
--- NOTE | 2021-01-10 12:41 | PDOC ---
Renal-Progress Notes Subjective Notes Notes NO NEW COMPLAINTS History of Present Illness Hx of present illness STABLE Vitals Vitals Vital Signs Date Time Temp Pulse Resp B/P (MAP) Pulse Ox O2 Delivery O2 Flow Rate FiO2 01/10/21 12:00 Room Air 01/10/21 11:00 118 23 128/98 (108) 100 01/10/21 07:00 97.6 97.6 Weight Weight [ ] I.O. Intake and Output Intake and Output 01/10/21 07:00 Intake Total 360 ml Output Total 0 ml Balance 360 ml Intake Oral 360 ml Output Urine Total 0 ml # Bowel Movements 2 Labs Labs Laboratory Tests Test 01/10/21 04:00 White Blood Count 10.3 x10^3/uL (4.0-11.0) Red Blood Count 4.47 x10^6/uL (4.30-5.70) Hemoglobin 13.1 g/dL (13.0-17.5) Hematocrit 40.6 % (39.0-53.0) Mean Corpuscular Volume 91 fL (79-100) Mean Corpuscular Hemoglobin 29 pg (25-35) Mean Corpuscular Hemoglobin Concent 32 g/dL (31-37) Red Cell Distribution Width 17.4 % (11.5-14.5) Platelet Count 102 x10^3/uL (140-400) Sodium Level 147 mmol/L (136-145) Potassium Level 4.8 mmol/L (3.5-5.1) Chloride Level 105 mmol/L (98-107) Carbon Dioxide Level 26 mmol/L (21-32) Anion Gap 16 (6-14) Blood Urea Nitrogen 121 mg/dL (8-26) Creatinine 13.3 mg/dL (0.7-1.3) Estimated GFR (Cockcroft-Gault) 4.4 Glucose Level 83 mg/dL (70-99) Calcium Level 8.3 mg/dL (8.5-10.1) Review of Systems Constitutional: yes: alert, oriented Ears/Nose/Throat: Yes: no symptom reported Eyes: Yes: no symptom reported Pulmonary: Yes no symptom reported Cardiovascular: Yes no symptom reported Gastrointestional: Yes: no symptom reported Genitourinary: Yes: no symptom reported Musculoskeletal: Yes: no symptom reported Skin: Yes no symptom reported Physical Exam General Appearance: no apparent distress Skin: warm Respiratory: bilateral CTA Heart: S1S2 Abdomen: soft, bowel sounds present Genitourinary: bladder flat Extremities: pulses present Neurology: alert, oriented Musculoskeletal: Osteoarthritis Assessment Assessment IMP LIFE THREATENING HYPERKALEMIA-RESOLVED MET ENCEPHALOPATHY UREMIA ESRD ANEMIA HTN-MALIGNANT - IMPROVED NON COMPLIANCE NON ISCHEMIC CM AFIB PLAN HD TOMORROW ENC COMPLIANCE CARDIOLOGY EVAL AND TX WILL FOLLOW ETTA JO MD Jan 10, 2021 12:41
--- NOTE | 2021-01-10 13:13 | PDOC ---
[facility] PROGRESS NOTE Date of Service DOS: DATE: 01/10/21 TIME: 13:06 History of Present Illness History of Present Illness 01/10/2021 Patient seen and examined in ICU Spoke with nursing and discussed transferring to tele Patient on renal diet 01/09/2021 The patient is a pleasant 75-year-old male who has not gone to dialysis for the past couple of weeks. I guess, he could not afford his medicines and he has not been taking those as well. EMS was called by a neighbor, who found the patient confused. His glucose was in the 50s. They gave him some D50 and transported him to the hospital. While in the ER, he is noted to have hyperkalemia with a potassium level of 8.5. His BUN is 203. Creatinine is 18.4. He is also volume overloaded, has atrial fibrillation. Troponin is also high at 2.1. The patient is now being admitted to the ICU where he has been examined. Vitals/I&O Vitals/I&O: Vital Signs Date Time Temp Pulse Resp B/P (MAP) Pulse Ox O2 Delivery O2 Flow Rate FiO2 01/10/21 12:00 Room Air 01/10/21 11:00 118 23 128/98 (108) 100 01/10/21 07:00 97.6 97.6 I & O 01/09/21 01/09/21 01/10/21 15:00 23:00 07:00 Intake Total 100 ml 260 ml Output Total 0 ml 0 ml Balance 0 ml 100 ml 260 ml Physical Exam General: Alert, No acute distress Heart: Regular rate, Other (MR) Lungs: Clear Abdomen: Normal bowel sounds Extremities: No clubbing Skin: No breakdown Labs Labs: Laboratory Tests Test 01/10/21 04:00 White Blood Count 10.3 x10^3/uL (4.0-11.0) Red Blood Count 4.47 x10^6/uL (4.30-5.70) Hemoglobin 13.1 g/dL (13.0-17.5) Hematocrit 40.6 % (39.0-53.0) Mean Corpuscular Volume 91 fL (79-100) Mean Corpuscular Hemoglobin 29 pg (25-35) Mean Corpuscular Hemoglobin Concent 32 g/dL (31-37) Red Cell Distribution Width 17.4 % (11.5-14.5) Platelet Count 102 x10^3/uL (140-400) Sodium Level 147 mmol/L (136-145) Potassium Level 4.8 mmol/L (3.5-5.1) Chloride Level 105 mmol/L (98-107) Carbon Dioxide Level 26 mmol/L (21-32) Anion Gap 16 (6-14) Blood Urea Nitrogen 121 mg/dL (8-26) Creatinine 13.3 mg/dL (0.7-1.3) Estimated GFR (Cockcroft-Gault) 4.4 Glucose Level 83 mg/dL (70-99) Calcium Level 8.3 mg/dL (8.5-10.1) Assessment and Plan Assessmemt and Plan Problems Medical Problems: (1) Elevated troponin Status: Acute (2) Hyperkalemia Status: Acute (3) Hypoglycemia Status: Acute Assessment ESRD Hyperkalemia - improved CHF Fluid overload Alkalosis - improved Leukocytosis Anemia Elevated Troponin Atrial fibrillation Plan Sliding scale insuline ordered HD per nephrology Cardiology considering anticoagulation GI assessing possible hepatitis Patient will be transferred to tele Cardiac monitoring DVT prophylaxis Home meds Full code Appreciate subspecialist input Comment Review of Relevant I have reviewed the following items jake (where applicable) has been applied. Justifications for Admission Other Justification DEVENDRA ABDI III DO Jan 10, 2021 13:13
[2021-01-10] MEDS: AURYXIA 210 MG PO SCH (17:00)
[2021-01-10] MEDS: SODIUM BICARBONATE 650 MG TABLET. PO SCH (21:00)
[2021-01-11] VITALS: BP 137/86
[2021-01-11 04:00] VITALS: BP 133/80
[2021-01-11] MEDS ORDERED: IV NORMAL SALINE 1000ML BAG 1,000 ML IV PRN ×2 (07:30)
[2021-01-11] MEDS ORDERED: DIALYSIS PATIENT. MC PRN ×2 (07:30)
[2021-01-11] MEDS ORDERED: ALBUMIN HUMAN 25% 200 ML IV PRN (07:30)
[2021-01-11 07:57] VITALS: BP 153/82
[2021-01-11] MEDS: AURYXIA 210 MG PO SCH ×3 (08:00→13:10)
--- NOTE | 2021-01-11 08:05 | NUR ---
Holding all am medication per dialysis nurse
--- NOTE | 2021-01-11 08:11 | NUR ---
Pt to dialysis suite for dialysis. Belongings, denture and wallet taken to new room 664. Family notified
[2021-01-11 09:18] LABS: CALCIUM 8.3 mg/dL (8.5-10.1); CREATININE 11.4 mg/dL (0.7-1.3); GFR 5.3; POTASSIUM 4.4 mmol/L (3.5-5.1)
--- NOTE | 2021-01-11 10:24 | PDOC ---
CARDIOLOGY PROGRESS NOTE SUBJECTIVE: No new issues overnight. Remains in afib/flutter. Denies any chest pain. Currently undergoing HD. OBJECTIVE: Vital Signs/I&O: Vital Signs Date Time Temp Pulse Resp B/P (MAP) Pulse Ox O2 Delivery O2 Flow Rate FiO2 01/11/21 07:58 Room Air 01/11/21 07:57 98.9 123 18 153/82 (105) 95 98.9 I & O 01/10/21 01/10/21 01/11/21 15:00 23:00 07:00 Intake Total 590 ml 120 ml Balance 590 ml 120 ml Objective: GEN.: No apparent distress. Alert and oriented. HEENT: Head is normocephalic, atraumatic NECK: Supple. LUNGS: Clear to auscultation. HEART: RRR, S1, S2 present. Peripheral pulses intact ABDOMEN: Soft, nontender. Positive bowel sounds. EXTREMITIES: Without any cyanosis. NEUROLOGIC: Normal speech, normal tone PSYCHIATRIC: Normal affect, normal mood. SKIN: No ulcerations CURRENT MEDICATIONS: Furosemide, ASA, Atorvastatin, Hydralazine, Imdur, Amlodipine. DIAGNOSTIC TESTING: Labs reviewed. ASSESSMENT: 1. Failure to thrive 2. Afib 3. NICM 4. HTN 5. ESRD PLAN: 1. Start Metoprolol XL 50mg daily 2. Start anticoagulation with eliquis 5mg p.o bid when getting ready for DC and stabilized. 3. Start amiodarone 200mg daily for prior hx of afib with RVR and shocks. 4. Check echo. 5. Goals of care discussion per nephrology and primary teams. Will follow along. Justicifation of Admission Dx: Justifications for Admission: Justification of Admission Dx: Yes KULDEEP MCRAE MD Jan 11, 2021 10:24
--- NOTE | 2021-01-11 11:23 | PDOC ---
[facility] PROGRESS NOTE Date of Service DOS: DATE: 01/11/21 TIME: 11:19 History of Present Illness History of Present Illness 01/11/2021 Patient seen and examined in dialysis Moved up to room 664 from ICU Spoke with dialysis about new labs Creatinine and bun improving 01/10/2021 Patient seen and examined in ICU Spoke with nursing and discussed transferring to tele Patient on renal diet 01/09/2021 The patient is a pleasant 75-year-old male who has not gone to dialysis for the past couple of weeks. I guess, he could not afford his medicines and he has not been taking those as well. EMS was called by a neighbor, who found the patient confused. His glucose was in the 50s. They gave him some D50 and transported him to the hospital. While in the ER, he is noted to have hyperkalemia with a potassium level of 8.5. His BUN is 203. Creatinine is 18.4. He is also volume overloaded, has atrial fibrillation. Troponin is also high at 2.1. The patient is now being admitted to the ICU where he has been examined. Vitals/I&O Vitals/I&O: Vital Signs Date Time Temp Pulse Resp B/P (MAP) Pulse Ox O2 Delivery O2 Flow Rate FiO2 01/11/21 07:58 Room Air 01/11/21 07:57 98.9 123 18 153/82 (105) 95 98.9 I & O 01/10/21 01/10/21 01/11/21 15:00 23:00 07:00 Intake Total 590 ml 120 ml Balance 590 ml 120 ml Physical Exam General: Alert, No acute distress Heart: Regular rate, Other (MR) Lungs: Clear Abdomen: Normal bowel sounds Extremities: No clubbing Skin: No breakdown Labs Labs: Laboratory Tests Test 01/10/21 20:52 01/11/21 00:07 01/11/21 08:50 Glucose (Fingerstick) 100 mg/dL (70-99) 102 mg/dL (70-99) Sodium Level 145 mmol/L (136-145) Potassium Level 4.4 mmol/L (3.5-5.1) Chloride Level 104 mmol/L (98-107) Carbon Dioxide Level 22 mmol/L (21-32) Anion Gap 19 (6-14) Blood Urea Nitrogen 118 mg/dL (8-26) Creatinine 11.4 mg/dL (0.7-1.3) Estimated GFR (Cockcroft-Gault) 5.3 Glucose Level 106 mg/dL (70-99) Calcium Level 8.3 mg/dL (8.5-10.1) Assessment and Plan Assessmemt and Plan Problems Medical Problems: (1) Elevated troponin Status: Acute (2) Hyperkalemia Status: Acute (3) Hypoglycemia Status: Acute Assessment ESRD CHF Fluid overload Alkalosis Coagulopathy Leukocytosis Anemia Elevated Troponin Atrial fibrillation Plan Sliding scale insulin HD per nephrology Started on Eliquis per cardiology Cardiac monitoring DVT prophylaxis Home meds Full code Appreciate subspecialist input Comment Review of Relevant I have reviewed the following items jake (where applicable) has been applied. Medications: Current Medications Medications (Trade) Dose Ordered Sig/Travis Route PRN Reason Start Time Stop Time Status Last Admin Dose Admin Hydralazine HCl (Apresoline) 50 mg TID PO 01/10/21 21:00 01/10/21 21:01 Sodium Bicarbonate (Sodium Bicarbonate) 650 mg BID PO 01/10/21 21:00 01/10/21 21:00 Justifications for Admission Other Justification DEVENDRA ABDI III DO Jan 11, 2021 11:23
--- NOTE | 2021-01-11 12:46 | PDOC ---
Renal-Progress Notes Subjective Notes Notes NO NEW COMPLAINTS History of Present Illness Hx of present illness STABLE Vitals Vitals Vital Signs Date Time Temp Pulse Resp B/P (MAP) Pulse Ox O2 Delivery O2 Flow Rate FiO2 01/11/21 07:58 Room Air 01/11/21 07:57 98.9 123 18 153/82 (105) 95 98.9 Weight Weight [ ] I.O. Intake and Output Intake and Output 01/11/21 07:00 Intake Total 710 ml Balance 710 ml Intake Oral 710 ml # Voids 2 # Bowel Movements 2 Labs Labs Laboratory Tests Test 01/10/21 20:52 01/11/21 00:07 01/11/21 08:50 Glucose (Fingerstick) 100 mg/dL (70-99) 102 mg/dL (70-99) Sodium Level 145 mmol/L (136-145) Potassium Level 4.4 mmol/L (3.5-5.1) Chloride Level 104 mmol/L (98-107) Carbon Dioxide Level 22 mmol/L (21-32) Anion Gap 19 (6-14) Blood Urea Nitrogen 118 mg/dL (8-26) Creatinine 11.4 mg/dL (0.7-1.3) Estimated GFR (Cockcroft-Gault) 5.3 Glucose Level 106 mg/dL (70-99) Calcium Level 8.3 mg/dL (8.5-10.1) Review of Systems Constitutional: yes: alert, oriented Ears/Nose/Throat: Yes: no symptom reported Eyes: Yes: no symptom reported Pulmonary: Yes no symptom reported Cardiovascular: Yes no symptom reported Gastrointestional: Yes: no symptom reported Genitourinary: Yes: no symptom reported Musculoskeletal: Yes: no symptom reported Skin: Yes no symptom reported Physical Exam General Appearance: no apparent distress Skin: warm Respiratory: bilateral CTA Heart: other (AFIB WITH HR OF 130) Abdomen: soft, bowel sounds present Genitourinary: bladder flat Extremities: pulses present Neurology: alert, oriented Musculoskeletal: Osteoarthritis Assessment Assessment IMP LIFE THREATENING HYPERKALEMIA-RESOLVED MET ENCEPHALOPATHY UREMIA ESRD ANEMIA HTN-MALIGNANT - IMPROVED NON COMPLIANCE NON ISCHEMIC CM AFIB RVR PLAN HD TODAY UF TO DW ENC COMPLIANCE CARDIOLOGY EVAL AND TX WILL FOLLOW ETTA JO MD Jan 11, 2021 12:46
[2021-01-11 12:59] VITALS: BP 139/75
[2021-01-11] MEDS: ASPIRIN ENTERIC COATED 81 MG TABLET.DR. PO SCH (13:07)
[2021-01-11] MEDS: FOLIC/VIT B COMP W-C (RENAL) TABLET. PO SCH (13:07)
[2021-01-11] MEDS: amLODIPine BESYLATE 10 MG TABLET PO SCH (13:07)
[2021-01-11] MEDS: PANTOPRAZOLE 40 MG TABLET.DR. PO SCH (13:07)
[2021-01-11] MEDS: ISOSORBIDE MONONITRATE ER 30 MG TAB.ER.24H PO SCH (13:07)
[2021-01-11] MEDS: SODIUM BICARBONATE 650 MG TABLET. PO SCH ×2 (13:07→21:00)
[2021-01-11] MEDS: FUROSEMIDE 80 MG TABLET. PO SCH (13:08)
[2021-01-11] MEDS: ATORVASTATIN CALCIUM 20 MG TABLET PO SCH (13:08)
[2021-01-11] MEDS: METOPROLOL SUCC 24HR ER 50 MG TAB.ER.24H. PO SCH (14:33)
[2021-01-11] MEDS: AMIODARONE HCL 200 MG TABLET. PO SCH (14:34)
[2021-01-11 16:00] VITALS: BP 139/69
[2021-01-11 23:10] VITALS: BP 109/65
--- NOTE | 2021-01-11 23:30 | NUR ---
Pt had an episode of maroon-colored (large amount) stool on the floor, distinct blood/stool odor, staff cleaned area, patient, assisted to bed with walker, vitals obtained, 104/61 hr 110, his prior vitals--109/65, HR 88, patient does remain confused, he previously refuses the monitor, but has allowed staff to place, and leave on, Dr Moreira updated on this event, labs in am, Monitoring this patient further.
--- NOTE | 2021-01-12 00:57 | NUR ---
Patient has another episode of maroon-colored stool on the floor and in toilet, his spouse calls to check on him, she is notified of this, and that he is having his lab drawn in the am. she verbalizes that she understands, and she denies that he has ever had any bloody stools, monitoring.
[2021-01-12 03:30] VITALS: BP 125/69
--- NOTE | 2021-01-12 07:52 | PDOC ---
[facility] PROGRESS NOTE Date of Service DOS: DATE: 01/12/21 TIME: 07:49 Chief Complaint Chief Complaint A/P: Hyperkalemia Acute diastolic CHF Afib with RVR - metoprolol. eliquis, amiodarone per cardiology ESRD Diabetes type II Hypertension Hyperlipidemia GERD. History of Present Illness History of Present Illness Mr Deleon is a 75-year-old male w/ PMHx ESRD, HTN, diastolic CHF, non-ischemic cardiomyopathy who has not gone to dialysis for the past couple of weeks and came to ED via EMS after a neighbor who found the patient confused. His glucose was in the 50s. They gave him some D50 and transported him to the hospital. While in the ER, he is noted to have hyperkalemia with a potassium level of 8.5. His BUN was 203. Creatinine was 18.4. He is also volume overloaded, has atrial fibrillation. Troponin was also high at 2.1. The patient was admitted to the ICU with nephrology and cardiology consultation. 01/10: Seen in ICU, labs improved 01/11: Transferred from ICU, required dialysis WBC 12. Still confused today. He has no complaints. Now is NSR with PVCs on telemetry. No Chest pain or shortness of breath. Vitals/I&O Vitals/I&O: Vital Signs Date Time Temp Pulse Resp B/P (MAP) Pulse Ox O2 Delivery O2 Flow Rate FiO2 01/12/21 03:30 97.8 106 17 125/69 (87) 95 Room Air 97.8 I & O 01/11/21 01/11/21 01/12/21 15:00 23:00 07:00 Intake Total 240 ml 0 ml 300 ml Output Total 50 ml Balance 190 ml 0 ml 300 ml Physical Exam General: Alert, No acute distress Heart: Regular rate, Other (MR) Lungs: Clear Abdomen: Normal bowel sounds Extremities: No clubbing Skin: No breakdown Labs Labs: Laboratory Tests Test 01/11/21 08:50 01/11/21 14:25 01/11/21 16:04 01/12/21 07:35 Sodium Level 145 mmol/L (136-145) Potassium Level 4.4 mmol/L (3.5-5.1) Chloride Level 104 mmol/L (98-107) Carbon Dioxide Level 22 mmol/L (21-32) Anion Gap 19 (6-14) Blood Urea Nitrogen 118 mg/dL (8-26) Creatinine 11.4 mg/dL (0.7-1.3) Estimated GFR (Cockcroft-Gault) 5.3 Glucose Level 106 mg/dL (70-99) Calcium Level 8.3 mg/dL (8.5-10.1) Glucose (Fingerstick) 183 mg/dL (70-99) 111 mg/dL (70-99) 70 mg/dL (70-99) Assessment and Plan Assessmemt and Plan Problems Medical Problems: (1) Elevated troponin Status: Acute (2) Hyperkalemia Status: Acute (3) Hypoglycemia Status: Acute Comment Review of Relevant I have reviewed the following items jake (where applicable) has been applied. Medications: Current Medications Medications (Trade) Dose Ordered Sig/Travis Route PRN Reason Start Time Stop Time Status Last Admin Dose Admin Amlodipine Besylate (Norvasc) 10 mg DAILY PO 01/11/21 09:00 01/11/21 13:07 Aspirin (Ecotrin) 81 mg DAILY PO 01/11/21 09:00 01/11/21 13:07 Atorvastatin Calcium (Lipitor) 20 mg DAILY PO 01/11/21 09:00 01/11/21 13:08 Furosemide (Lasix) 80 mg DAILY PO 01/11/21 09:00 01/11/21 13:08 Isosorbide Mononitrate (Imdur) 30 mg DAILY PO 01/11/21 09:00 01/11/21 13:07 Vitamin B Complex/ Vitamin C (Samreen-Uzair) 1 tab DAILY PO 01/11/21 09:00 01/11/21 13:07 Metoprolol Succinate (Toprol Xl) 50 mg DAILY PO 01/11/21 11:00 01/11/21 14:33 Amiodarone HCl (Cordarone) 200 mg DAILY PO 01/11/21 11:00 01/11/21 14:34 Justifications for Admission Other Justification LINDA SOLIS MD Jan 12, 2021 07:52
[2021-01-12] MEDS: AURYXIA 210 MG PO SCH ×3 (08:00→14:01)
[2021-01-12 08:07] VITALS: BP 115/56
[2021-01-12 08:13] LABS: BASO # 0.1 x10^3/uL (0.0-0.2); BASO % 1 % (0-3); EOS % 0 % (0-3); HEMATOCRIT 31.3 % (39.0-53.0); LYMPH % 8 % (24-48); MEAN CORPUSCULAR HEMOGLOBIN 29 pg (25-35); MEAN CORPUSCULAR HGB CONC 32 g/dL (31-37); MEAN CORPUSCULAR VOLUME 92 fL (79-100); MONO # 1.5 x10^3/uL (0.0-1.1); MONO % 12 % (0-9); NEUT # 10.2 x10^3/uL (1.8-7.7); NEUT % 80 % (31-73); PLATELET COUNT 69 x10^3/uL (140-400); RED BLOOD COUNT 3.41 x10^6/uL (4.30-5.70); RED CELL DISTRIBUTION WIDTH 17.5 % (11.5-14.5); WHITE BLOOD COUNT 12.8 x10^3/uL (4.0-11.0)
[2021-01-12] MEDS: FOLIC/VIT B COMP W-C (RENAL) TABLET. PO SCH (08:27)
[2021-01-12] MEDS: PANTOPRAZOLE 40 MG TABLET.DR. PO SCH (08:27)
[2021-01-12] MEDS: SODIUM BICARBONATE 650 MG TABLET. PO SCH ×2 (08:27→21:06)
[2021-01-12] MEDS: ISOSORBIDE MONONITRATE ER 30 MG TAB.ER.24H PO SCH (08:27)
[2021-01-12] MEDS: ASPIRIN ENTERIC COATED 81 MG TABLET.DR. PO SCH (08:27)
[2021-01-12] MEDS: AMIODARONE HCL 200 MG TABLET. PO SCH (08:28)
[2021-01-12] MEDS: FUROSEMIDE 80 MG TABLET. PO SCH (08:28)
[2021-01-12] MEDS: ATORVASTATIN CALCIUM 20 MG TABLET PO SCH (08:28)
[2021-01-12] MEDS: amLODIPine BESYLATE 10 MG TABLET PO SCH (08:29)
[2021-01-12] MEDS: METOPROLOL SUCC 24HR ER 50 MG TAB.ER.24H. PO SCH (08:29)
[2021-01-12] MEDS ORDERED: APIXABAN 5 MG TABLET. PO SCH (09:00)
[2021-01-12 10:48] VITALS: BP 107/74
--- NOTE | 2021-01-12 10:51 | PDOC ---
Renal-Progress Notes Subjective Notes Notes NO NEW COMPLAINTS History of Present Illness Hx of present illness STABLE, CHART REVIEWED Vitals Vitals Vital Signs Date Time Temp Pulse Resp B/P (MAP) Pulse Ox O2 Delivery O2 Flow Rate FiO2 01/12/21 10:48 97.2 105 20 107/74 (85) 96 Room Air 97.2 Weight Weight [ ] I.O. Intake and Output Intake and Output 01/12/21 07:00 Intake Total 540 ml Output Total 50 ml Balance 490 ml Intake Oral 540 ml Output Urine Total 50 ml # Voids 2 # Bowel Movements 5 Labs Labs Laboratory Tests Test 01/11/21 14:25 01/11/21 16:04 01/12/21 07:05 01/12/21 07:35 Glucose (Fingerstick) 183 mg/dL (70-99) 111 mg/dL (70-99) 70 mg/dL (70-99) White Blood Count 12.8 x10^3/uL (4.0-11.0) Red Blood Count 3.41 x10^6/uL (4.30-5.70) Hemoglobin 10.0 g/dL (13.0-17.5) Hematocrit 31.3 % (39.0-53.0) Mean Corpuscular Volume 92 fL (79-100) Mean Corpuscular Hemoglobin 29 pg (25-35) Mean Corpuscular Hemoglobin Concent 32 g/dL (31-37) Red Cell Distribution Width 17.5 % (11.5-14.5) Platelet Count 69 x10^3/uL (140-400) Neutrophils (%) (Auto) 80 % (31-73) Lymphocytes (%) (Auto) 8 % (24-48) Monocytes (%) (Auto) 12 % (0-9) Eosinophils (%) (Auto) 0 % (0-3) Basophils (%) (Auto) 1 % (0-3) Neutrophils # (Auto) 10.2 x10^3/uL (1.8-7.7) Lymphocytes # (Auto) 1.0 x10^3/uL (1.0-4.8) Monocytes # (Auto) 1.5 x10^3/uL (0.0-1.1) Eosinophils # (Auto) 0.0 x10^3/uL (0.0-0.7) Basophils # (Auto) 0.1 x10^3/uL (0.0-0.2) Review of Systems Constitutional: yes: alert, oriented Ears/Nose/Throat: Yes: no symptom reported Eyes: Yes: no symptom reported Pulmonary: Yes no symptom reported Cardiovascular: Yes no symptom reported Gastrointestional: Yes: no symptom reported Genitourinary: Yes: no symptom reported Musculoskeletal: Yes: no symptom reported Skin: Yes no symptom reported Physical Exam General Appearance: no apparent distress Skin: warm Respiratory: bilateral CTA Heart: other (AFIB WITH HR OF 130) Abdomen: soft, bowel sounds present Genitourinary: bladder flat Extremities: pulses present Neurology: alert, oriented Musculoskeletal: Osteoarthritis Assessment Assessment IMP ?MELENA LIFE THREATENING HYPERKALEMIA-RESOLVED MET ENCEPHALOPATHY UREMIA ESRD ANEMIA HTN-MALIGNANT - IMPROVED NON COMPLIANCE NON ISCHEMIC CM AFIB RVR PLAN HD TOMORROW ENC COMPLIANCE CARDIOLOGY EVAL AND TX WILL FOLLOW ETTA JO MD Jan 12, 2021 10:50
--- NOTE | 2021-01-12 11:48 | NUR ---
SW following. Discussed with RN, pt from home alone, room air, renal diet. Pt does dialysis at [facility]. Cardiology and nephrology following. Per RN, pt gets around fine. No SW needs at this time. SW will continue to follow.
[2021-01-12 11:59] LABS: CALCIUM 7.7 mg/dL (8.5-10.1); CREATININE 9.7 mg/dL (0.7-1.3); GFR 6.4; POTASSIUM 5.4 mmol/L (3.5-5.1)
--- NOTE | 2021-01-12 13:54 | PDOC ---
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 01/12/21 1354: CARDIO Progress Notes Date and Time Date of Service 01/12/2021 Time of Evaluation 1330 Subjective Subjective: No Chest Pain, No shortness of breath, No Palpitations Vitals Vitals Vital Signs Date Time Temp Pulse Resp B/P (MAP) Pulse Ox O2 Delivery O2 Flow Rate FiO2 01/12/21 10:48 97.2 105 20 107/74 (85) 96 Room Air 97.2 Weight Weight [ ] Input and Output Intake and Output Intake and Output 01/12/21 07:00 Intake Total 540 ml Output Total 50 ml Balance 490 ml Intake Oral 540 ml Output Urine Total 50 ml # Voids 2 # Bowel Movements 5 Laboratory Labs Laboratory Tests Test 01/11/21 14:25 01/11/21 16:04 01/12/21 07:05 01/12/21 07:35 Glucose (Fingerstick) 183 mg/dL (70-99) 111 mg/dL (70-99) 70 mg/dL (70-99) White Blood Count 12.8 x10^3/uL (4.0-11.0) Red Blood Count 3.41 x10^6/uL (4.30-5.70) Hemoglobin 10.0 g/dL (13.0-17.5) Hematocrit 31.3 % (39.0-53.0) Mean Corpuscular Volume 92 fL (79-100) Mean Corpuscular Hemoglobin 29 pg (25-35) Mean Corpuscular Hemoglobin Concent 32 g/dL (31-37) Red Cell Distribution Width 17.5 % (11.5-14.5) Platelet Count 69 x10^3/uL (140-400) Neutrophils (%) (Auto) 80 % (31-73) Lymphocytes (%) (Auto) 8 % (24-48) Monocytes (%) (Auto) 12 % (0-9) Eosinophils (%) (Auto) 0 % (0-3) Basophils (%) (Auto) 1 % (0-3) Neutrophils # (Auto) 10.2 x10^3/uL (1.8-7.7) Lymphocytes # (Auto) 1.0 x10^3/uL (1.0-4.8) Monocytes # (Auto) 1.5 x10^3/uL (0.0-1.1) Eosinophils # (Auto) 0.0 x10^3/uL (0.0-0.7) Basophils # (Auto) 0.1 x10^3/uL (0.0-0.2) Test 01/12/21 11:05 01/12/21 11:20 Glucose (Fingerstick) 109 mg/dL (70-99) Sodium Level 142 mmol/L (136-145) Potassium Level 5.4 mmol/L (3.5-5.1) Chloride Level 101 mmol/L (98-107) Carbon Dioxide Level 25 mmol/L (21-32) Anion Gap 16 (6-14) Blood Urea Nitrogen 95 mg/dL (8-26) Creatinine 9.7 mg/dL (0.7-1.3) Estimated GFR (Cockcroft-Gault) 6.4 Glucose Level 107 mg/dL (70-99) Calcium Level 7.7 mg/dL (8.5-10.1) Review of Systems Constitutional: yes: alert, oriented Ears/Nose/Throat: Yes: no symptom reported Eyes: Yes: no symptom reported Pulmonary: Yes no symptom reported Cardiovascular: Yes no symptom reported Gastrointestional: Yes: no symptom reported Genitourinary: Yes: no symptom reported Musculoskeletal: Yes: no symptom reported Skin: Yes no symptom reported Physical Exam HEENT: Neck Supple W Full Motion Chest: Symmetric LUNGS: Clear to Auscultation Heart: RRR (Possible atrial flutter) Abdomen: Soft N/T Extremities: No Edema, No Calf Tenderness Neurology: alert, oriented, follow commands Assessment Assessment 1. Failure to thrive 2. Afib/flutter: rate controlled, appears to remain in flutter at 100, repeat EKG for better definition 3. NICM: EF at 25% 4. HTN: controlled 5. ESRD with hyperkalemia 6. Thrombocytopenia and anemia: PLT 69 Hgb drifted to 10 7. AICD in situ: [facility] 8. Hypoglycemia 9. Metabolic encephalopathy: better 10. Transaminitis 11. Poor compliance 12. SAMM; refuses CPAP 13. NSTEMI: suspect type 2 demand mediated, trop peaked at 2.1, cp free in the setting of esrd, severe hyperkalemia and AFIB RVR 14. Mild coagulopathy: INR at 1.7 15. Possible melena Recommendations 1. Continue toprol, increase dose and amiodarone 2. Check LFTs. Hold eliquis with lowering of Hgb and PLTs. Continue with ECASA 81 mg. Hold statin for now with transaminitis. 3. TTE, FLP 4. Fluid off loading per HD 5. Discussed treatment compliance 6. Consult GI Justicifation of Admission Dx: Justifications for Admission: Justification of Admission Dx: Yes KULDEEP MCRAE MD 01/13/21 0835: CARDIO Progress Notes Plan Plan Late entry for 01/12/21 Pt. seen and examined. Agree with above [employer] note. 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
[2021-01-12 14:08] LABS: PROTHROMBIN TIME PATIENT 19.9 SEC (11.7-14.0)
[2021-01-12 14:22] LABS: ALBUMIN 2.6 g/dL (3.4-5.0); DIRECT BILIRUBIN 4.9 mg/dL (0.0-0.2); TOTAL BILIRUBIN 6.3 mg/dL (0.2-1.0); TOTAL PROTEIN 5.4 g/dL (6.4-8.2)
[2021-01-12 14:47] VITALS: BP 110/71
[2021-01-12] MEDS ORDERED: METOPROLOL SUCC 24HR ER 25 MG TAB.ER.24H. PO ONE (15:15)
[2021-01-12 16:29] LABS: CHOLESTEROL/HDL RATIO 9.8
--- NOTE | 2021-01-12 16:36 | CARD ---
MR#: [id number] Date of Study: 01/12/2021 Ordering Physician: KULDEEP MCRAE, Referring Physician: KULDEEP MCRAE, Tech: Cecelia Betancourt [facility] APPROVED REPORT EXAM: Two-dimensional and M-mode echocardiogram with Doppler and color Doppler. Other Information Quality : GoodHR: 105bpm Rhythm : Tachycardia INDICATION Chest Pain RISK FACTORS Hypertension 2D DIMENSIONS RVDd3.9 (2.9-3.5cm)Left Atrium(2D)4.5 (1.6-4.0cm) IVSd1.3 (0.7-1.1cm)Aortic Root(2D)3.1 (2.0-3.7cm) LVDd5.3 (3.9-5.9cm)LVOT Diameter2.2 (1.8-2.4cm) PWd1.3 (0.7-1.1cm)LVDs4.1 (2.5-4.0cm) FS (%) 22.4 %SV59.8 ml LVEF(%)44.7 (>50%) Aortic Valve AoV Peak Flip.89.4cm/Claus Peak GR.3.2mmHg AI P 1/2 Atxt42gd TDI Lateral E' P. V6.24cm/sMedial E' P. V5.86cm/s Tricuspid Valve TR P. [id number] Peak Gr.18mmHg LEFT VENTRICLE The left ventricle is normal size. There is borderline to mild concentric left ventricular hypertroph y. The left ventricular systolic function is moderate to severely impaired. Estimated ejection fract ion 30%. There is global hypokinesis of the left ventricle. Tissue Doppler imaging reveals moderate l eft ventricular diastolic dysfunction. RIGHT VENTRICLE The right ventricle is normal size. There is normal right ventricular wall thickness. Systolic functi on is mildly reduced. ATRIA The left atrium is mildly dilated. The right atrium is mildly dilated. The interatrial septum is inta ct with no evidence for an atrial septal defect or patent foramen ovale as noted on 2-D or Doppler im aging. AORTIC VALVE The aortic valve is normal in structure and function. Doppler and Color Flow revealed no significant aortic regurgitation. There is no significant aortic valvular stenosis. MITRAL VALVE The mitral valve is normal in structure and function. There is no evidence of mitral valve prolapse. There is no mitral valve stenosis. Doppler and Color-flow revealed mild mitral regurgitation. TRICUSPID VALVE The tricuspid valve is normal in structure and function. Doppler and Color Flow revealed mild tricusp id regurgitation. Estimated PAP 32 mmHg. There is no tricuspid valve stenosis. PULMONIC VALVE The pulmonary valve is normal in structure and function. Doppler and Color Flow revealed mild pulmoni c valvular regurgitation. GREAT VESSELS The aortic root is normal in size. The ascending aorta is normal in size. The IVC is normal in size a nd collapses >50% with inspiration. PERICARDIAL EFFUSION There is no evidence of significant pericardial effusion. Critical Notification Critical Value: No <Conclusion> The left ventricular systolic function is moderate to severely impaired. The ejection fraction is estimated at 30%. Tissue Doppler imaging reveals moderate left ventricular diastolic dysfunction. Mild mitral regurgitation. Mild tricuspid regurgitation. Estimated PAP 32 mmHg. There is no evidence of significant pericardial effusion. Signed by : Jonathan Seaman, Electronically Approved : 01/12/2021 16:35:48
--- NOTE | 2021-01-12 16:54 | PDOC2 ---
GI CONSULT Date of Service: DATE: 01/12/21 TIME: 16:36 Reason For Consult: melena HPI: HPI: 75 y/o male who we've seen in the past. Admitted this time on 01/08 after missing dialysis x 2 weeks. Significant lab abnormalities. Complicated w/ NSTEMI, A Fib RVR. On amiodarone, Eliquis (now stopped), and ASA per cardiology. Last night, passed dark red stool per rectum - "like a murder scene." This recurred to lesser extent a couple times throughout the day today. We are asked to see him this evening for this. He's not a very helpful historian. Bleeding might have happened at home. Says eating okay w/o abd pain or n/v. Thinks possible weight loss. Staff notes poor appetite. H/o villous adenoma s/p right colon resection in 2012. Suspected diverticular bleed in 10/2019. Colonoscopy w/ Dr. Bentley in 06/2020 - can't view procedure report, had hyperplastic polyps. Diverticulosis and hepatic steatosis on past imaging. ?h/o GERD No GB, pancreas, liver, or PUD history. PMH: PMH: NICM, A Fib/flutter, CHF, COPD, SAMM, ESRD on HD, HTN, HLD, BPH AICD, LUE fistula, ?TURP, colon resection FH: Family History: No pertinent hx Social History: Smoke: Quit ALCOHOL: occassional (?amount) Drugs: None ROS: "Missing dialysis was on me, that's on me." Vitals: Vitals: Vital Signs Date Time Temp Pulse Resp B/P (MAP) Pulse Ox O2 Delivery O2 Flow Rate FiO2 01/12/21 15:27 101 110/71 01/12/21 15:00 Room Air 01/12/21 14:47 97.6 18 95 97.6 Labs: Labs: Laboratory Tests Test 01/12/21 07:05 01/12/21 07:35 01/12/21 11:00 01/12/21 11:05 White Blood Count 12.8 x10^3/uL (4.0-11.0) Red Blood Count 3.41 x10^6/uL (4.30-5.70) Hemoglobin 10.0 g/dL (13.0-17.5) Hematocrit 31.3 % (39.0-53.0) Mean Corpuscular Volume 92 fL (79-100) Mean Corpuscular Hemoglobin 29 pg (25-35) Mean Corpuscular Hemoglobin Concent 32 g/dL (31-37) Red Cell Distribution Width 17.5 % (11.5-14.5) Platelet Count 69 x10^3/uL (140-400) Neutrophils (%) (Auto) 80 % (31-73) Lymphocytes (%) (Auto) 8 % (24-48) Monocytes (%) (Auto) 12 % (0-9) Eosinophils (%) (Auto) 0 % (0-3) Basophils (%) (Auto) 1 % (0-3) Neutrophils # (Auto) 10.2 x10^3/uL (1.8-7.7) Lymphocytes # (Auto) 1.0 x10^3/uL (1.0-4.8) Monocytes # (Auto) 1.5 x10^3/uL (0.0-1.1) Eosinophils # (Auto) 0.0 x10^3/uL (0.0-0.7) Basophils # (Auto) 0.1 x10^3/uL (0.0-0.2) Prothrombin Time 19.9 SEC (11.7-14.0) Prothromb Time International Ratio 1.7 (0.8-1.1) Glucose (Fingerstick) 70 mg/dL (70-99) 109 mg/dL (70-99) Triglycerides Level 112 mg/dL (0-150) Cholesterol Level 78 mg/dL (0-200) LDL Cholesterol, Calculated 48 mg/dL (0-100) VLDL Cholesterol, Calculated 22 mg/dL (0-40) Non-HDL Cholesterol Calculated 70 mg/dL (0-129) HDL Cholesterol 8 mg/dL (40-60) Cholesterol/HDL Ratio 9.8 Test 01/12/21 11:20 01/12/21 16:22 Sodium Level 142 mmol/L (136-145) Potassium Level 5.4 mmol/L (3.5-5.1) Chloride Level 101 mmol/L (98-107) Carbon Dioxide Level 25 mmol/L (21-32) Anion Gap 16 (6-14) Blood Urea Nitrogen 95 mg/dL (8-26) Creatinine 9.7 mg/dL (0.7-1.3) Estimated GFR (Cockcroft-Gault) 6.4 Glucose Level 107 mg/dL (70-99) Calcium Level 7.7 mg/dL (8.5-10.1) Total Bilirubin 6.3 mg/dL (0.2-1.0) Direct Bilirubin 4.9 mg/dL (0.0-0.2) Aspartate Amino Transf (AST/SGOT) 275 U/L (15-37) Alanine Aminotransferase (ALT/SGPT) 747 U/L (16-63) Alkaline Phosphatase 81 U/L (46-116) Total Protein 5.4 g/dL (6.4-8.2) Albumin 2.6 g/dL (3.4-5.0) Thyroid Stimulating Hormone (TSH) 1.008 uIU/mL (0.358-3.74) Glucose (Fingerstick) 90 mg/dL (70-99) Allergies: Coded Allergies: No Known Drug Allergies (Unverified , 06/19/20) Medications: Current Medications Medications (Trade) Dose Ordered Sig/Travis Route PRN Reason Start Time Stop Time Status Last Admin Dose Admin Apixaban (Eliquis) 5 mg BID PO 01/12/21 09:00 01/12/21 13:52 DC 01/12/21 08:27 Metoprolol Succinate (Toprol Xl) 25 mg 1X ONCE PO 01/12/21 15:15 01/12/21 15:16 DC 01/12/21 15:27 Imaging: Imaging: CXR IMPRESSION: 1. Cardiomegaly. 2. Mild vascular congestion. Echo pending PE: GEN: NAD, sitting on edge of bed, gynecomastia HEENT: Atraumatic LUNGS: CTAB HEART: tachycardic/irregular - 106 ABD: NABS, S/ND/NT EXTREMITY: No edema SKIN: +jaundice NEURO/PSYCH: confused A/P: A/P: Non-compliance w/ hyperkalemia and uremia, FTT NSTEMI, NICM, A Fib/flutter, ESRD on HD ?hematochezia/melena Chronic anemia - Hgb above baseline Thrombocytopenia (worse), abnormal LFTs (improved), coagulopathy - new ?GERD CRC screen - UTD (06/2020) S/p right colon resection (villous adenoma) Diverticulosis, h/o suspected diverticular bleed Hepatic steatosis -- Bleeding per staff since last night. Vitals stable. Eliquis held per cardiology, ASA continued. Clear liquid diet. No bleeding scan needed per Dr. Bentley. Monitor labs. DAVID SLATER Jan 12, 2021 16:54
[2021-01-12 19:00] VITALS: BP 109/53
[2021-01-12] MEDS ORDERED: traZODone 50 MG TABLET. PO PRN (20:15)
[2021-01-12] MEDS ORDERED: DARBEPOETIN ALFA 60 MCG/0.3 ML DISP.SYRIN. SQ SCH (21:00)
[2021-01-12 22:52] VITALS: BP 101/56
[2021-01-13] VITALS (18 sets, daily range): BP systolic 42–182; BP diastolic 13–57
[2021-01-13 02:41] LABS: HEMATOCRIT 23.2 % (39.0-53.0); HEMOGLOBIN 7.2 g/dL (13.0-17.5)
[2021-01-13] MEDS ORDERED: ROCURONIUM 50 MG/5 ML VIAL. ONE (05:41)
[2021-01-13] MEDS ORDERED: ETOMIDATE 20 MG/10 ML VIAL. IV ONE (05:42)
--- NOTE | 2021-01-13 05:42 | PDOC5 ---
CODE REPORT CODE REPORT This physician responded to CODE BLUE up in the 6 floor, patient was un responsive, CPR in progress. It was reported that patient blood sugar was 48. Patient was given 1 amp of D50, was unresponsive and in PEA. Patient was given 1 mg epinephrine. ROSC was achieved. Patient was intubated by this physician by rapid sequence intubation. Indication: Respiratory failure Consent: Unable to give consent due to emergent nature. Medications Used: see nursing note Procedure: The patient was placed in the appropriate position. Intubation was performed by this physician, cord visualized method using glidescope. ET tube # 7.5, secured at 24 at lip. endotracheal tube. Initial confirmation of placement included bilateral breath sounds, tube fogging, adequate chest rise, adequate pulse oximetry reading. A chest x-ray to verify correct placement of the tube showed appropriate tube position. The patient tolerated the procedure well. Complications: none. AUNG EDWARDS DO Jan 13, 2021 05:42
[2021-01-13] MEDS: DEXTROSE 50% 25 GM / 50ML DISP.SYRIN. IV PRN ×8 (05:55→18:11)
[2021-01-13] MEDS ORDERED: NOREPINEPHRINE VIAL 8 MG in IV DEXTROSE 5% 250 ML IV PRN (06:00)
[2021-01-13] MEDS ORDERED: IV DEXTROSE 5% 1,000 ML IV ONE (06:00)
[2021-01-13] MEDS ORDERED: MIDAZOLAM HCL 50 MG in IV NORMAL SALINE 50ML 50 ML IV PRN (06:15)
[2021-01-13] MEDS ORDERED: MIDAZOLAM 100mg/100ml NS BAG 100 ML IV PRN (06:15)
[2021-01-13] MEDS ORDERED: DEXTROSE 50% 25 GM / 50ML DISP.SYRIN. IV ONE (06:30)
--- NOTE | 2021-01-13 06:34 | NUR ---
Patient arrived to room 111 from south at 0555. Monitor on. SR noted. Vent at 50%. Macahdo and NG tube inserted. Dr. Gomez notified of code at 0600 New orders received. Unable to get a BP. Levo gtt ordered and started at 0.1mcg. PIV in left [place]. [place] [address] 19. Dextrose given per protocol. Will monitor.
--- NOTE | 2021-01-13 07:11 | RAD ---
Exam Date: 01/13/2021 6:48 AM XR CHEST 1V Indication: Reason: intubated and OG tube placement / Spl. Instructions: / History: Comparison: January 08, 2021 FINDINGS/ IMPRESSION: Endotracheal tube terminates approximately 7 cm above the jakub. Nasogastric tube extends below the diaphragm and terminates in the gastric fundus. Cardiac pacemaker remains in place. The cardiac silhouette is enlarged with mild congestion. Small bilateral pleural effusions are suspec castillo, left larger than right. Bibasilar and perihilar atelectasis, infiltrates, and/or edema noted. No pneumothorax. Electronically signed by: Chidi Jc MD (01/13/2021 7:09 AM) [id number]
--- NOTE | 2021-01-13 07:17 | NUR ---
At approximately 0125 Patient continuing to have multiple loose bloody stools, patient placed on BSC at this time. RN notified by MECHANICAL CAD DRAFTER that patient became stiff and extremely weak, it took 3 of us to get patient back into bed. BS checked at this time and it was 90. RN unable to get BP at this time but patient was arousable to name but with change in condition and inability to obtain BP it was decided to call a rapid response, called at 0145. He was found to be stable and by the time rapid response team arrived, RN was able to get BP and patient started to become back to baseline and started joking with us, so patient was not transferred at this time. RN did order a stat Hgb at this time due to continued bloody stools, which are now appearing to be solid blood. See labs for results. RN continued to check on patient, he did continue to try and get out of bed to use BSC but patient would still become extremely weak appearing as though he was going to have a syncopal episode if he stood, so patient was placed on bedpan. Patient remained at baseline until approximately 0510 when RN was checking on patient it was found that patient was having agonal breathing and was not arousable, patient at this time in NSR HR was 96. RN attempts to get BP (which again was unable to get) and BS checked at this time and it was 48, IV dextrose given, at 0515 RN advises MECHANICAL CAD DRAFTER to call a rapid and to get charge nurse for assistance, 0520 it was noted patient stopped breathing and we were unable to get pulse this RN started CPR and called a code blue. Patient transferred to room 111, report given to Ida SHEFFIELD, daughter Gloria notified of transfer by this RN.
[2021-01-13 08:06] LABS: BASE EXCESS ABG -15 mmol/L (-3-3); HCO3 ABG 13 mmol/L (21-28); PCO2 ABG 40 mmHg (35-46); PO2 ABG 112 mmHg (65-108); SAT O2 ABG 95 % (92-99)
[2021-01-13 08:09] LABS: BASO # 0.1 x10^3/uL (0.0-0.2); BASO % 0 % (0-3); EOS # 0.1 x10^3/uL (0.0-0.7); EOS % 0 % (0-3); LYMPH # 0.7 x10^3/uL (1.0-4.8); LYMPH % 4 % (24-48); MEAN CORPUSCULAR HEMOGLOBIN 29 pg (25-35); MEAN CORPUSCULAR HGB CONC 30 g/dL (31-37); MONO # 0.9 x10^3/uL (0.0-1.1); MONO % 4 % (0-9); NEUT # 19.5 x10^3/uL (1.8-7.7); NEUT % 92 % (31-73); PLATELET COUNT 69 x10^3/uL (140-400); RED BLOOD COUNT 1.97 x10^6/uL (4.30-5.70); RED CELL DISTRIBUTION WIDTH 18.5 % (11.5-14.5); WHITE BLOOD COUNT 21.3 x10^3/uL (4.0-11.0)
[2021-01-13 08:14] LABS: FIO2 ABG 50
[2021-01-13 08:19] LABS: HEMOGLOBIN 5.8 g/dL (13.0-17.5)
[2021-01-13 08:20] LABS: HEMATOCRIT 19.2 % (39.0-53.0); MEAN CORPUSCULAR VOLUME 98 fL (79-100)
[2021-01-13] MEDS: NOREPINEPHRINE VIAL 32 MG in IV DEXTROSE 5% 218 ML IV PRN ×2 (08:41→20:36)
[2021-01-13] MEDS: VASOPRESSIN 20 UNIT in IV DEXTROSE 5% 100ML 100 ML IV PRN ×2 (08:49→14:57)
[2021-01-13] MEDS: METOPROLOL SUCC 24HR ER 50 MG TAB.ER.24H. PO SCH (09:00)
[2021-01-13] MEDS: amLODIPine BESYLATE 10 MG TABLET PO SCH (09:00)
[2021-01-13] MEDS: ISOSORBIDE MONONITRATE ER 30 MG TAB.ER.24H PO SCH (09:00)
[2021-01-13] MEDS: SODIUM BICARBONATE 650 MG TABLET. PO SCH ×2 (09:00→22:03)
[2021-01-13] MEDS: FOLIC/VIT B COMP W-C (RENAL) TABLET. PO SCH (09:00)
[2021-01-13] MEDS: FUROSEMIDE 80 MG TABLET. PO SCH (09:00)
[2021-01-13] MEDS: ASPIRIN ENTERIC COATED 81 MG TABLET.DR. PO SCH (09:00)
[2021-01-13 09:13] LABS: ALBUMIN 1.7 g/dL (3.4-5.0); ALBUMIN/GLOBULIN RATIO 0.8 (1.0-1.7); CALCIUM 6.9 mg/dL (8.5-10.1); CREATININE 11.4 mg/dL (0.7-1.3); DIRECT BILIRUBIN 3.2 mg/dL (0.0-0.2); GFR 5.3; MAGNESIUM 2.9 mg/dL (1.8-2.4); TOTAL BILIRUBIN 4.3 mg/dL (0.2-1.0); TOTAL PROTEIN 3.9 g/dL (6.4-8.2)
[2021-01-13 09:16] LABS: PHOSPHORUS 13.9 mg/dL (2.6-4.7); POTASSIUM 6.6 mmol/L (3.5-5.1)
[2021-01-13 09:39] LABS: PROTHROMBIN TIME PATIENT 31.7 SEC (11.7-14.0)
[2021-01-13] MEDS ORDERED: MIDAZOLAM HCL/PF 5 MG/5 ML VIAL. ONE (10:34)
[2021-01-13] MEDS ORDERED: MIDAZOLAM HCL/PF 5 MG/5 ML VIAL. IV ONE (10:45)
--- NOTE | 2021-01-13 11:30 | RAD ---
01/13/2021 9:24 AM 1. Ultrasound-guided placement of a temporary dialysis catheter, right internal jugular 2. Ultrasound-guided placement of triple-lumen central venous catheter, right internal jugular Clinical Indication: Renal failure, critically ill mass U with multiple IV medications needed. Transfusions needed. Discussion: The risks and benefits of the procedure were discussed the patient and/or their u.s. representative. Informed consent was obtained. A timeout procedure was performed. All elements of maximal sterile barrier technique including the use of a cap, mask, sterile gown, sterile gloves, large sterile sheet, appropriate hand hygiene, and 2% chlorhexidine for cutaneous antisepsis (or acceptable alternative antiseptic per current guidelines) were followed for this procedure. The patient was prepped and draped in the usual sterile fashion. Ultrasound interrogation of the right neck revealed patency and compressibility of the right internal jugular vein. A 21-gauge micropuncture was then used to gain access to this vein under ultrasound guidance. A hard copy ultrasound image was recorded. A guidewire was advanced centrally. 5 Cam[place]onian sheath was placed. Over a wire following dilatation, a temporary dialysis catheter was advanced centrally. Catheter was found to flush and aspirate normally. Again using direct ultrasound guidance, a 21-gauge micropuncture was again used to access the internal jugular vein, slightly less than the more cephalad and the previously placed catheter. A hard copy ultrasound image was recorded. A guidewire was advanced centrally. 5 [place] sheath was placed. Over a wire following dilatation, a triple-lumen central venous catheter was advanced centrally. Catheter was found to flush and aspirate normally. Follow-up chest radiograph demonstrates catheter tips in acceptable position. Catheters were secured in place. Sterile dressings were applied. No immediate complications. Impression: 1. Ultrasound-guided placement of right internal jugular temporary dialysis catheter 2. Ultrasound-guided placement of a triple-lumen central venous catheter
--- NOTE | 2021-01-13 11:43 | RAD ---
EXAM: Chest, single view. HISTORY: Line placement. COMPARISON: 01/13/2021 FINDINGS: A frontal view of the chest is obtained. There aren't right internal jugular catheters term inate within the superior cavoatrial junction. There is no pneumothorax. There is a left cardiac pace maker defibrillator in expected position. There is a right subclavian stent. There is no consolidatio n or pleural effusion. The heart is stable in size. IMPRESSION: 1. Right internal jugular central venous catheters overlying the superior cavoatrial junction. 2. No acute pulmonary finding. Electronically signed by: Larissa Pitts MD (01/13/2021 11:40 AM) [id number]
[2021-01-13] MEDS: PHENYLEPHRINE INJ 50 MG in IV NORMAL SALINE 250ML 250 ML IV PRN (11:50)
--- NOTE | 2021-01-13 11:51 | PDOC ---
Date of Service: DATE: 01/13/21 TIME: 11:46 Subjective: Subjective: I saw earlier this morning. Nurse present. Code overnight, PEA, not responsive, on pressors, transfusion ordered. Rectal bleeding. Objective: Vital Signs: Vital Signs Date Time Temp Pulse Resp B/P (MAP) Pulse Ox O2 Delivery O2 Flow Rate FiO2 01/13/21 11:39 100 Ventilator 01/13/21 08:16 104/38 (60) 01/13/21 07:50 94.5 91 16 94.5 Labs: Laboratory Tests Test 01/12/21 16:22 01/12/21 19:07 01/13/21 01:32 01/13/21 02:30 Glucose (Fingerstick) 90 mg/dL 106 mg/dL 90 mg/dL Hemoglobin 7.2 g/dL Hematocrit 23.2 % Mean Corpuscular Hemoglobin Concent 31 g/dL Test 01/13/21 05:21 01/13/21 05:56 01/13/21 06:27 01/13/21 06:42 Glucose (Fingerstick) 48 mg/dL 38 mg/dL 19 mg/dL 22 mg/dL Test 01/13/21 06:44 01/13/21 07:07 01/13/21 07:45 01/13/21 08:00 Glucose (Fingerstick) 273 mg/dL 57 mg/dL White Blood Count 21.3 x10^3/uL Red Blood Count 1.97 x10^6/uL Hemoglobin 5.8 g/dL Hematocrit 19.2 % Mean Corpuscular Volume 98 fL Mean Corpuscular Hemoglobin 29 pg Mean Corpuscular Hemoglobin Concent 30 g/dL Red Cell Distribution Width 18.5 % Platelet Count 69 x10^3/uL Neutrophils (%) (Auto) 92 % Lymphocytes (%) (Auto) 4 % Monocytes (%) (Auto) 4 % Eosinophils (%) (Auto) 0 % Basophils (%) (Auto) 0 % Neutrophils # (Auto) 19.5 x10^3/uL Lymphocytes # (Auto) 0.7 x10^3/uL Monocytes # (Auto) 0.9 x10^3/uL Eosinophils # (Auto) 0.1 x10^3/uL Basophils # (Auto) 0.1 x10^3/uL O2 Saturation 95 % Arterial Blood pH 7.12 Arterial Blood pCO2 at Patient Temp 40 mmHg Arterial Blood pO2 at Patient Temp 112 mmHg Arterial Blood HCO3 13 mmol/L Arterial Blood Base Excess -15 mmol/L FiO2 50 Test 01/13/21 08:05 01/13/21 08:45 01/13/21 09:00 01/13/21 09:21 Glucose (Fingerstick) 181 mg/dL 191 mg/dL Sodium Level 135 mmol/L Potassium Level 6.6 mmol/L Chloride Level 99 mmol/L Carbon Dioxide Level 13 mmol/L Anion Gap 23 Blood Urea Nitrogen 124 mg/dL Creatinine 11.4 mg/dL Estimated GFR (Cockcroft-Gault) 5.3 BUN/Creatinine Ratio 11 Glucose Level 379 mg/dL Calcium Level 6.9 mg/dL Phosphorus Level 13.9 mg/dL Magnesium Level 2.9 mg/dL Total Bilirubin 4.3 mg/dL Direct Bilirubin 3.2 mg/dL Aspartate Amino Transf (AST/SGOT) 203 U/L Alanine Aminotransferase (ALT/SGPT) 469 U/L Alkaline Phosphatase 62 U/L Total Protein 3.9 g/dL Albumin 1.7 g/dL Albumin/Globulin Ratio 0.8 Prothrombin Time 31.7 SEC Prothromb Time International Ratio 3.1 Imaging: CXR 01/13 Endotracheal tube terminates approximately 7 cm above the jakub. Nasogastric tube extends below the diaphragm and terminates in the gastric fundus. Cardiac pacemaker remains in place. The cardiac silhouette is enlarged with mild congestion. Small bilateral pleural effusions are suspected, left larger than right. Bibasilar and perihilar atelectasis, infiltrates, and/or edema noted. No pneumothorax. PE: GEN: chronically ill LUNGS: intubated/vent HEART: irregular ABD: soft, non-distended NEURO/PSYCH: non-responsive A/P: S/p code Rectal bleeding, anemia NSTEMI, NICM, A Fib/flutter, ESRD on HD, non-compliance Thrombocytopenia, coagulopathy (worse) -- Since I saw, ICU staff called w/ ongoing rectal bleeding - not stable enough for any imaging. Asked about rectal tube - okay to place. Continue blood transfusions, monitor Hgb. D/w Dr. Bentley - will also give FFP and vit K. No plans for scope. ?IR opinion/angiogram Prognosis guarded. Justicifation of Admission Dx: Justifications for Admission: Justification of Admission Dx: Yes DAVID SLATER Jan 13, 2021 11:51
[2021-01-13] MEDS: MIDAZOLAM 100mg/100ml NS BAG 100 ML IV PRN ×2 (12:00→17:27)
[2021-01-13 12:14] LABS: BASO # 0.1 x10^3/uL (0.0-0.2); BASO % 0 % (0-3); EOS % 0 % (0-3); HEMATOCRIT 31.3 % (39.0-53.0); LYMPH # 0.7 x10^3/uL (1.0-4.8); LYMPH % 2 % (24-48); MEAN CORPUSCULAR HEMOGLOBIN 29 pg (25-35); MEAN CORPUSCULAR HGB CONC 32 g/dL (31-37); MONO # 1.8 x10^3/uL (0.0-1.1); MONO % 6 % (0-9); NEUT # 26.3 x10^3/uL (1.8-7.7); NEUT % 91 % (31-73); PLATELET COUNT 41 x10^3/uL (140-400); RED BLOOD COUNT 3.43 x10^6/uL (4.30-5.70); RED CELL DISTRIBUTION WIDTH 16.8 % (11.5-14.5); WHITE BLOOD COUNT 28.8 x10^3/uL (4.0-11.0)
--- NOTE | 2021-01-13 12:14 | PDOC ---
Renal-Progress Notes Subjective Notes Notes BRBPR History of Present Illness Hx of present illness GI BLEED Vitals Vitals Vital Signs Date Time Temp Pulse Resp B/P (MAP) Pulse Ox O2 Delivery O2 Flow Rate FiO2 01/13/21 11:39 100 Ventilator 01/13/21 08:16 104/38 (60) 01/13/21 07:50 94.5 91 16 94.5 Weight Weight [ ] I.O. Intake and Output Intake and Output 01/13/21 07:00 Intake Total 220 ml Balance 220 ml Intake Oral 220 ml # Bowel Movements 4 Labs Labs Laboratory Tests Test 01/12/21 16:22 01/12/21 19:07 01/13/21 01:32 01/13/21 02:30 Glucose (Fingerstick) 90 mg/dL (70-99) 106 mg/dL (70-99) 90 mg/dL (70-99) Hemoglobin 7.2 g/dL (13.0-17.5) Hematocrit 23.2 % (39.0-53.0) Mean Corpuscular Hemoglobin Concent 31 g/dL (31-37) Test 01/13/21 05:21 01/13/21 05:56 01/13/21 06:27 01/13/21 06:42 Glucose (Fingerstick) 48 mg/dL (70-99) 38 mg/dL (70-99) 19 mg/dL (70-99) 22 mg/dL (70-99) Test 01/13/21 06:44 01/13/21 07:07 01/13/21 07:29 01/13/21 07:45 Glucose (Fingerstick) 273 mg/dL (70-99) 57 mg/dL (70-99) 294 mg/dL (70-99) White Blood Count 21.3 x10^3/uL (4.0-11.0) Red Blood Count 1.97 x10^6/uL (4.30-5.70) Hemoglobin 5.8 g/dL (13.0-17.5) Hematocrit 19.2 % (39.0-53.0) Mean Corpuscular Volume 98 fL (79-100) Mean Corpuscular Hemoglobin 29 pg (25-35) Mean Corpuscular Hemoglobin Concent 30 g/dL (31-37) Red Cell Distribution Width 18.5 % (11.5-14.5) Platelet Count 69 x10^3/uL (140-400) Neutrophils (%) (Auto) 92 % (31-73) Lymphocytes (%) (Auto) 4 % (24-48) Monocytes (%) (Auto) 4 % (0-9) Eosinophils (%) (Auto) 0 % (0-3) Basophils (%) (Auto) 0 % (0-3) Neutrophils # (Auto) 19.5 x10^3/uL (1.8-7.7) Lymphocytes # (Auto) 0.7 x10^3/uL (1.0-4.8) Monocytes # (Auto) 0.9 x10^3/uL (0.0-1.1) Eosinophils # (Auto) 0.1 x10^3/uL (0.0-0.7) Basophils # (Auto) 0.1 x10^3/uL (0.0-0.2) Test 01/13/21 08:00 01/13/21 08:05 01/13/21 08:45 01/13/21 09:00 O2 Saturation 95 % (92-99) Arterial Blood pH 7.12 (7.35-7.45) Arterial Blood pCO2 at Patient Temp 40 mmHg (35-46) Arterial Blood pO2 at Patient Temp 112 mmHg (65-108) Arterial Blood HCO3 13 mmol/L (21-28) Arterial Blood Base Excess -15 mmol/L (-3-3) FiO2 50 Glucose (Fingerstick) 181 mg/dL (70-99) Sodium Level 135 mmol/L (136-145) Potassium Level 6.6 mmol/L (3.5-5.1) Chloride Level 99 mmol/L (98-107) Carbon Dioxide Level 13 mmol/L (21-32) Anion Gap 23 (6-14) Blood Urea Nitrogen 124 mg/dL (8-26) Creatinine 11.4 mg/dL (0.7-1.3) Estimated GFR (Cockcroft-Gault) 5.3 BUN/Creatinine Ratio 11 (6-20) Glucose Level 379 mg/dL (70-99) Calcium Level 6.9 mg/dL (8.5-10.1) Phosphorus Level 13.9 mg/dL (2.6-4.7) Magnesium Level 2.9 mg/dL (1.8-2.4) Total Bilirubin 4.3 mg/dL (0.2-1.0) Direct Bilirubin 3.2 mg/dL (0.0-0.2) Aspartate Amino Transf (AST/SGOT) 203 U/L (15-37) Alanine Aminotransferase (ALT/SGPT) 469 U/L (16-63) Alkaline Phosphatase 62 U/L (46-116) Total Protein 3.9 g/dL (6.4-8.2) Albumin 1.7 g/dL (3.4-5.0) Albumin/Globulin Ratio 0.8 (1.0-1.7) Prothrombin Time 31.7 SEC (11.7-14.0) Prothromb Time International Ratio 3.1 (0.8-1.1) Test 01/13/21 09:21 01/13/21 11:57 Glucose (Fingerstick) 191 mg/dL (70-99) 134 mg/dL (70-99) Review of Systems Constitutional: yes: alert, oriented Ears/Nose/Throat: Yes: no symptom reported Eyes: Yes: no symptom reported Pulmonary: Yes no symptom reported Cardiovascular: Yes no symptom reported Gastrointestional: Yes: no symptom reported Genitourinary: Yes: no symptom reported Musculoskeletal: Yes: no symptom reported Skin: Yes no symptom reported Physical Exam General Appearance: no apparent distress Skin: warm Respiratory: bilateral CTA Heart: other (AFIB WITH HR OF 130) Abdomen: soft, bowel sounds present Genitourinary: bladder flat Extremities: pulses present Neurology: alert, oriented, follow commands Musculoskeletal: Osteoarthritis Assessment Assessment IMP GI BLEED SEVERE ANEMIA LIFE THREATENING HYPERKALEMIA-RESOLVED MET ENCEPHALOPATHY UREMIA ESRD ANEMIA HTN-MALIGNANT - IMPROVED NON COMPLIANCE NON ISCHEMIC CM AFIB RVR MALFUNCTIONING AV ACCESS PLAN IR TO PLACE TEMP HD LINE AV ACCESS WORK ONCE MORE STABLE HD TODAY PRBC UF NEEDED ENC COMPLIANCE CARDIOLOGY EVAL AND TX WILL FOLLOW ETTA JO MD Jan 13, 2021 12:14
[2021-01-13] MEDS ORDERED: IV NORMAL SALINE 1000ML BAG 1,000 ML IV PRN ×4 (12:15→12:30)
[2021-01-13] MEDS ORDERED: DIALYSIS PATIENT. MC PRN ×2 (12:15→12:30)
[2021-01-13] MEDS ORDERED: ALBUMIN HUMAN 25% 200 ML IV PRN (12:15)
[2021-01-13 12:17] LABS: MEAN CORPUSCULAR VOLUME 91 fL (79-100)
--- NOTE | 2021-01-13 12:25 | PDOC ---
[employer] PROGRESS NOTE Date of Service DOS: DATE: 01/13/21 TIME: 12:24 Chief Complaint Chief Complaint cardiac arrest, code blue, s/p code Acute blood loss anemia, acute lower GI hemorrhage Hyperkalemia Acute diastolic CHF Afib with RVR - metoprolol. eliquis, amiodarone per cardiology ESRD Diabetes type II Hypertension Hyperlipidemia GERD. History of Present Illness History of Present Illness 01/13, s/p code, has gag reflex, is over breathing the vent, pupil reflex is poor, poss cataracts Mr Deleon is a 75-year-old male w/ PMHx ESRD, HTN, diastolic CHF, non-ischemic cardiomyopathy who has not gone to dialysis for the past couple of weeks and came to ED via EMS after a neighbor who found the patient confused. His glucose was in the 50s. They gave him some D50 and transported him to the hospital. While in the ER, he is noted to have hyperkalemia with a potassium level of 8.5. His BUN was 203. Creatinine was 18.4. He is also volume overloaded, has atrial fibrillation. Troponin was also high at 2.1. The patient was admitted to the ICU with nephrology and cardiology consultation. 01/10: Seen in ICU, labs improved 01/11: Transferred from ICU, required dialysis WBC 12. Still confused today. He has no complaints. Now is NSR with PVCs on telemetry. No Chest pain or shortness of breath. Vitals/I&O Vitals/I&O: Vital Signs Date Time Temp Pulse Resp B/P (MAP) Pulse Ox O2 Delivery O2 Flow Rate FiO2 01/13/21 11:39 100 Ventilator 01/13/21 08:16 104/38 (60) 01/13/21 07:50 94.5 91 16 94.5 I & O 01/12/21 01/12/21 01/13/21 15:00 23:00 07:00 Intake Total 120 ml 100 ml Balance 120 ml 100 ml Physical Exam General: No acute distress, Other Heart: Regular rate, Other (MR) Lungs: Clear Abdomen: Normal bowel sounds Extremities: No clubbing Skin: No breakdown Labs Labs: Laboratory Tests Test 01/12/21 16:22 01/12/21 19:07 01/13/21 01:32 01/13/21 02:30 Glucose (Fingerstick) 90 mg/dL (70-99) 106 mg/dL (70-99) 90 mg/dL (70-99) Hemoglobin 7.2 g/dL (13.0-17.5) Hematocrit 23.2 % (39.0-53.0) Mean Corpuscular Hemoglobin Concent 31 g/dL (31-37) Test 01/13/21 05:21 01/13/21 05:56 01/13/21 06:27 01/13/21 06:42 Glucose (Fingerstick) 48 mg/dL (70-99) 38 mg/dL (70-99) 19 mg/dL (70-99) 22 mg/dL (70-99) Test 01/13/21 06:44 01/13/21 07:07 01/13/21 07:29 01/13/21 07:45 Glucose (Fingerstick) 273 mg/dL (70-99) 57 mg/dL (70-99) 294 mg/dL (70-99) White Blood Count 21.3 x10^3/uL (4.0-11.0) Red Blood Count 1.97 x10^6/uL (4.30-5.70) Hemoglobin 5.8 g/dL (13.0-17.5) Hematocrit 19.2 % (39.0-53.0) Mean Corpuscular Volume 98 fL (79-100) Mean Corpuscular Hemoglobin 29 pg (25-35) Mean Corpuscular Hemoglobin Concent 30 g/dL (31-37) Red Cell Distribution Width 18.5 % (11.5-14.5) Platelet Count 69 x10^3/uL (140-400) Neutrophils (%) (Auto) 92 % (31-73) Lymphocytes (%) (Auto) 4 % (24-48) Monocytes (%) (Auto) 4 % (0-9) Eosinophils (%) (Auto) 0 % (0-3) Basophils (%) (Auto) 0 % (0-3) Neutrophils # (Auto) 19.5 x10^3/uL (1.8-7.7) Lymphocytes # (Auto) 0.7 x10^3/uL (1.0-4.8) Monocytes # (Auto) 0.9 x10^3/uL (0.0-1.1) Eosinophils # (Auto) 0.1 x10^3/uL (0.0-0.7) Basophils # (Auto) 0.1 x10^3/uL (0.0-0.2) Test 01/13/21 08:00 01/13/21 08:05 01/13/21 08:45 01/13/21 09:00 O2 Saturation 95 % (92-99) Arterial Blood pH 7.12 (7.35-7.45) Arterial Blood pCO2 at Patient Temp 40 mmHg (35-46) Arterial Blood pO2 at Patient Temp 112 mmHg (65-108) Arterial Blood HCO3 13 mmol/L (21-28) Arterial Blood Base Excess -15 mmol/L (-3-3) FiO2 50 Glucose (Fingerstick) 181 mg/dL (70-99) Sodium Level 135 mmol/L (136-145) Potassium Level 6.6 mmol/L (3.5-5.1) Chloride Level 99 mmol/L (98-107) Carbon Dioxide Level 13 mmol/L (21-32) Anion Gap 23 (6-14) Blood Urea Nitrogen 124 mg/dL (8-26) Creatinine 11.4 mg/dL (0.7-1.3) Estimated GFR (Cockcroft-Gault) 5.3 BUN/Creatinine Ratio 11 (6-20) Glucose Level 379 mg/dL (70-99) Calcium Level 6.9 mg/dL (8.5-10.1) Phosphorus Level 13.9 mg/dL (2.6-4.7) Magnesium Level 2.9 mg/dL (1.8-2.4) Total Bilirubin 4.3 mg/dL (0.2-1.0) Direct Bilirubin 3.2 mg/dL (0.0-0.2) Aspartate Amino Transf (AST/SGOT) 203 U/L (15-37) Alanine Aminotransferase (ALT/SGPT) 469 U/L (16-63) Alkaline Phosphatase 62 U/L (46-116) Total Protein 3.9 g/dL (6.4-8.2) Albumin 1.7 g/dL (3.4-5.0) Albumin/Globulin Ratio 0.8 (1.0-1.7) Prothrombin Time 31.7 SEC (11.7-14.0) Prothromb Time International Ratio 3.1 (0.8-1.1) Test 01/13/21 09:21 01/13/21 11:50 01/13/21 11:57 Glucose (Fingerstick) 191 mg/dL (70-99) 134 mg/dL (70-99) White Blood Count 28.8 x10^3/uL (4.0-11.0) Red Blood Count 3.43 x10^6/uL (4.30-5.70) Hemoglobin 10.0 g/dL (13.0-17.5) Hematocrit 31.3 % (39.0-53.0) Mean Corpuscular Volume 91 fL (79-100) Mean Corpuscular Hemoglobin 29 pg (25-35) Mean Corpuscular Hemoglobin Concent 32 g/dL (31-37) Red Cell Distribution Width 16.8 % (11.5-14.5) Platelet Count 41 x10^3/uL (140-400) Neutrophils (%) (Auto) 91 % (31-73) Lymphocytes (%) (Auto) 2 % (24-48) Monocytes (%) (Auto) 6 % (0-9) Eosinophils (%) (Auto) 0 % (0-3) Basophils (%) (Auto) 0 % (0-3) Neutrophils # (Auto) 26.3 x10^3/uL (1.8-7.7) Lymphocytes # (Auto) 0.7 x10^3/uL (1.0-4.8) Monocytes # (Auto) 1.8 x10^3/uL (0.0-1.1) Eosinophils # (Auto) 0.0 x10^3/uL (0.0-0.7) Basophils # (Auto) 0.1 x10^3/uL (0.0-0.2) Assessment and Plan Assessmemt and Plan Problems Medical Problems: (1) Elevated troponin Status: Acute (2) Hyperkalemia Status: Acute (3) Hypoglycemia Status: Acute Comment Review of Relevant I have reviewed the following items jake (where applicable) has been applied. Medications: Current Medications Medications (Trade) Dose Ordered Sig/Travis Route PRN Reason Start Time Stop Time Status Last Admin Dose Admin Darbepoetin Pedro (ARANESP for DIALYSIS PTS) 60 mcg WEEKLYHS SQ 01/12/21 21:00 01/12/21 21:06 Metoprolol Succinate (Toprol Xl) 25 mg 1X ONCE PO 01/12/21 15:15 01/12/21 15:16 DC 01/12/21 15:27 Trazodone HCl (Desyrel) 50 mg PRN QHS PRN PO INSOMNIA 01/12/21 20:15 01/12/21 21:06 Norepinephrine Bitartrate 8 mg/ Dextrose 258 ml @ 14.338 mls/ hr CONT PRN IV PER PROTOCOL 01/13/21 06:00 01/13/21 09:44 DC 01/13/21 06:13 Dextrose 1,000 ml @ 75 mls/hr [id number] ONCE IV 01/13/21 06:00 01/13/21 19:19 01/13/21 06:11 Norepinephrine Bitartrate 32 mg/ Dextrose 250 ml @ 3.473 mls/ hr CONT PRN IV PER PROTOCOL 01/13/21 08:30 01/13/21 08:41 Vasopressin 20 unit/Dextrose 101 ml @ 12 mls/hr CONT PRN IV SEE I/O RECORD 01/13/21 08:30 01/13/21 08:49 Phenylephrine HCl 50 mg/Sodium Chloride 255 ml @ 11.337 mls/ hr CONT PRN IV SEE I/O RECORD 01/13/21 08:30 01/13/21 11:50 Midazolam HCl (Versed) 5 mg 1X ONCE IV 01/13/21 10:45 01/13/21 10:46 DC 01/13/21 10:40 Justifications for Admission Other Justification SELVIN PEREIRA MD Jan 13, 2021 12:25
[2021-01-13 12:41] LABS: HEMATOCRIT 36.9 % (39.0-53.0); HEMOGLOBIN 11.9 g/dL (13.0-17.5)
--- NOTE | 2021-01-13 13:03 | PDOC ---
MAU [facility]OWNING RECYCLING OPERATIONS MANAGER 01/13/21 1303: CARDIO Progress Notes Date and Time Date of Service 01/13/2021 Time of Evaluation 1230 Subjective Subjective: Other (intubated) Vitals Vitals Vital Signs Date Time Temp Pulse Resp B/P (MAP) Pulse Ox O2 Delivery O2 Flow Rate FiO2 01/13/21 12:49 100 Ventilator 01/13/21 08:16 104/38 (60) 01/13/21 07:50 94.5 91 16 94.5 Weight Weight [ ] Input and Output Intake and Output Intake and Output 01/13/21 07:00 Intake Total 220 ml Balance 220 ml Intake Oral 220 ml # Bowel Movements 4 Laboratory Labs Laboratory Tests Test 01/12/21 16:22 01/12/21 19:07 01/13/21 01:32 01/13/21 02:30 Glucose (Fingerstick) 90 mg/dL (70-99) 106 mg/dL (70-99) 90 mg/dL (70-99) Hemoglobin 7.2 g/dL (13.0-17.5) Hematocrit 23.2 % (39.0-53.0) Mean Corpuscular Hemoglobin Concent 31 g/dL (31-37) Test 01/13/21 05:21 01/13/21 05:56 01/13/21 06:27 01/13/21 06:42 Glucose (Fingerstick) 48 mg/dL (70-99) 38 mg/dL (70-99) 19 mg/dL (70-99) 22 mg/dL (70-99) Test 01/13/21 06:44 01/13/21 07:07 01/13/21 07:29 01/13/21 07:45 Glucose (Fingerstick) 273 mg/dL (70-99) 57 mg/dL (70-99) 294 mg/dL (70-99) White Blood Count 21.3 x10^3/uL (4.0-11.0) Red Blood Count 1.97 x10^6/uL (4.30-5.70) Hemoglobin 5.8 g/dL (13.0-17.5) Hematocrit 19.2 % (39.0-53.0) Mean Corpuscular Volume 98 fL (79-100) Mean Corpuscular Hemoglobin 29 pg (25-35) Mean Corpuscular Hemoglobin Concent 30 g/dL (31-37) Red Cell Distribution Width 18.5 % (11.5-14.5) Platelet Count 69 x10^3/uL (140-400) Neutrophils (%) (Auto) 92 % (31-73) Lymphocytes (%) (Auto) 4 % (24-48) Monocytes (%) (Auto) 4 % (0-9) Eosinophils (%) (Auto) 0 % (0-3) Basophils (%) (Auto) 0 % (0-3) Neutrophils # (Auto) 19.5 x10^3/uL (1.8-7.7) Lymphocytes # (Auto) 0.7 x10^3/uL (1.0-4.8) Monocytes # (Auto) 0.9 x10^3/uL (0.0-1.1) Eosinophils # (Auto) 0.1 x10^3/uL (0.0-0.7) Basophils # (Auto) 0.1 x10^3/uL (0.0-0.2) Test 01/13/21 08:00 01/13/21 08:05 01/13/21 08:45 01/13/21 09:00 O2 Saturation 95 % (92-99) Arterial Blood pH 7.12 (7.35-7.45) Arterial Blood pCO2 at Patient Temp 40 mmHg (35-46) Arterial Blood pO2 at Patient Temp 112 mmHg (65-108) Arterial Blood HCO3 13 mmol/L (21-28) Arterial Blood Base Excess -15 mmol/L (-3-3) FiO2 50 Glucose (Fingerstick) 181 mg/dL (70-99) Sodium Level 135 mmol/L (136-145) Potassium Level 6.6 mmol/L (3.5-5.1) Chloride Level 99 mmol/L (98-107) Carbon Dioxide Level 13 mmol/L (21-32) Anion Gap 23 (6-14) Blood Urea Nitrogen 124 mg/dL (8-26) Creatinine 11.4 mg/dL (0.7-1.3) Estimated GFR (Cockcroft-Gault) 5.3 BUN/Creatinine Ratio 11 (6-20) Glucose Level 379 mg/dL (70-99) Calcium Level 6.9 mg/dL (8.5-10.1) Phosphorus Level 13.9 mg/dL (2.6-4.7) Magnesium Level 2.9 mg/dL (1.8-2.4) Total Bilirubin 4.3 mg/dL (0.2-1.0) Direct Bilirubin 3.2 mg/dL (0.0-0.2) Aspartate Amino Transf (AST/SGOT) 203 U/L (15-37) Alanine Aminotransferase (ALT/SGPT) 469 U/L (16-63) Alkaline Phosphatase 62 U/L (46-116) Total Protein 3.9 g/dL (6.4-8.2) Albumin 1.7 g/dL (3.4-5.0) Albumin/Globulin Ratio 0.8 (1.0-1.7) Prothrombin Time 31.7 SEC (11.7-14.0) Prothromb Time International Ratio 3.1 (0.8-1.1) Test 01/13/21 09:21 01/13/21 11:50 01/13/21 11:57 01/13/21 12:31 Glucose (Fingerstick) 191 mg/dL (70-99) 134 mg/dL (70-99) White Blood Count 28.8 x10^3/uL (4.0-11.0) Red Blood Count 3.43 x10^6/uL (4.30-5.70) Hemoglobin 10.0 g/dL (13.0-17.5) 11.9 g/dL (13.0-17.5) Hematocrit 31.3 % (39.0-53.0) 36.9 % (39.0-53.0) Mean Corpuscular Volume 91 fL (79-100) Mean Corpuscular Hemoglobin 29 pg (25-35) Mean Corpuscular Hemoglobin Concent 32 g/dL (31-37) 32 g/dL (31-37) Red Cell Distribution Width 16.8 % (11.5-14.5) Platelet Count 41 x10^3/uL (140-400) Neutrophils (%) (Auto) 91 % (31-73) Lymphocytes (%) (Auto) 2 % (24-48) Monocytes (%) (Auto) 6 % (0-9) Eosinophils (%) (Auto) 0 % (0-3) Basophils (%) (Auto) 0 % (0-3) Neutrophils # (Auto) 26.3 x10^3/uL (1.8-7.7) Lymphocytes # (Auto) 0.7 x10^3/uL (1.0-4.8) Monocytes # (Auto) 1.8 x10^3/uL (0.0-1.1) Eosinophils # (Auto) 0.0 x10^3/uL (0.0-0.7) Basophils # (Auto) 0.1 x10^3/uL (0.0-0.2) Review of Systems Constitutional: yes: alert, oriented Ears/Nose/Throat: Yes: no symptom reported Eyes: Yes: no symptom reported Pulmonary: Yes no symptom reported Cardiovascular: Yes no symptom reported Gastrointestional: Yes: no symptom reported Genitourinary: Yes: no symptom reported Musculoskeletal: Yes: no symptom reported Skin: Yes no symptom reported Physical Exam HEENT: Neck Supple W Full Motion Chest: Symmetric LUNGS: Other (intubated, vent) Heart: RRR (Possible atrial flutter) Abdomen: Soft N/T Extremities: No Edema Neurology: other (sedated) Assessment Assessment 1. Failure to thrive 2. Afib/flutter: presently on MAT 3. NICM: EF at 30% 4. HTN: was on hypovolemic shock 5. ESRD with hyperkalemia 6. Thrombocytopenia and anemia: Hgb was down to 5.8. PLT at 69 7. AICD in situ: [facility] 8. Hypoglycemia 9. Metabolic encephalopathy: better 10. Transaminitis 11. Poor compliance 12. SAMM; refused CPAP in the past 13. NSTEMI: suspect type 2 demand mediated, trop peaked at 2.1, cp free in the setting of esrd, severe hyperkalemia and AFIB RVR 14. Mild coagulopathy: INR at 1.7 15. Acute GI bleed: received 4U PRBCs and 2U PLT and FFP 16. S/P code blue/PEA: occurred around 530 AM suspect due to GI bleed, hypoglycemia, hypovolemic shock, and secondary hyperkalemia likely from sanguinous breakdown and absorption. Found agonal breathing, wide complex tach/PEA, ep given, 7 min to ROSC and SR afterwards, hypothermic and now re warmed. Intubated and vent. 17. Acute respiratory failure: due to above. intubated/vent Recommendations 1. Hold BP meds. Continue vasopressin and levophed. Continue 200 mg amiodarone 2. Eliquis was stopped yesterday. Hold ASA. Follow GI recommendations 3. Fluid off loading per HD, receiving now 4. Supportive care Justicifation of Admission Dx: Justifications for Admission: Justification of Admission Dx: Yes KULDEEP MCRAE MD 01/14/21 1458: CARDIO Progress Notes Plan Plan Late entry for 01/13/2021 Patient seen and examined. Agree with above nurse practitioner note. Supportive care from a cardiac standpoint. MAU [employer]OWNING RECYCLING OPERATIONS MANAGER Jan 13, 2021 13:03 KULDEEP MCRAE MD Jan 14, 2021 14:58
[2021-01-13] MEDS: AMIODARONE HCL 200 MG TABLET. PO SCH (13:08)
[2021-01-13] MEDS: PANTOPRAZOLE 40 MG TABLET.DR. PO SCH (13:09)
[2021-01-13] MEDS: fentaNYL HIGH DOSE PCA 2,750 ML IV PRN (13:12)
[2021-01-13] MEDS ORDERED: IV DEXTROSE 10% 1,000 ML IV SCH (14:45)
--- NOTE | 2021-01-13 15:04 | NUR ---
Patient is post code, no read on BP. This RN called for an Art Line and central line and temp HD line. Levophed started at 0.1mcg/kg/min and titrated numerous times to maintain a MAP >65mmHg. Vasopressin was added at 0.04 units/min.and Neosynephrine was started at 0.5mcg/kg/min and titrated to keep a MAP >65mmhg. Large, bloody liquid stool was noted with Hgb5.8. Four units of PRBC and two units of FFP was administered during dialysis.(Please see dialysis log for vital signs) Family updated
[2021-01-13 15:09] LABS: CALCIUM 6.9 mg/dL (8.5-10.1); CREATININE 5.7 mg/dL (0.7-1.3); GFR 11.8; POTASSIUM 4.4 mmol/L (3.5-5.1)
--- NOTE | 2021-01-13 15:25 | NUR ---
SS following for discharge planning. SS reviewed pt chart and discussed with pt RN. Pt is from home with spouse. Pt CODED this morning and was transferred to ICU. Pt is currently on the vent at 50%. Pt on pressors. Pt on Versed and Fentanyl. Pt having bloody stools and received four units of blood today. Not stable. Pt has outpatient dialysis at [facility], ; fax [phone]. SS will continue to follow for discharge planning.
[2021-01-13] MEDS ORDERED: methylPREDNISolone SOD SUCC PF 40 MG/ML VIAL. IV ONE (17:30)
[2021-01-13 18:06] LABS: HEMATOCRIT 29.2 % (39.0-53.0); HEMOGLOBIN 9.7 g/dL (13.0-17.5)
[2021-01-13] MEDS ORDERED: predniSONE 20 MG TABLET PO ONE (18:15)
--- NOTE | 2021-01-13 20:08 | NUR ---
DNR- Spoke with Becky Deleon, patient's , who stated before he was transported to [facility] he had a DNR in place at [place]. No paperwork in chart. Verified request by second RN, YOHANNES Machado. Will notify MD of request.
[2021-01-14] VITALS (24 sets, daily range): BP systolic 92–150; BP diastolic 46–67
[2021-01-14 00:06] LABS: HEMATOCRIT 32.1 % (39.0-53.0); HEMOGLOBIN 10.5 g/dL (13.0-17.5)
[2021-01-14] MEDS: VASOPRESSIN 20 UNIT in IV DEXTROSE 5% 100ML 100 ML IV PRN ×3 (00:12→18:29)
[2021-01-14] MEDS: MIDAZOLAM 100mg/100ml NS BAG 100 ML IV PRN ×2 (05:33→15:37)
[2021-01-14 05:50] LABS: HEMATOCRIT 31.6 % (39.0-53.0); HEMOGLOBIN 10.5 g/dL (13.0-17.5); RED BLOOD COUNT 3.63 x10^6/uL (4.30-5.70); RED CELL DISTRIBUTION WIDTH 17.1 % (11.5-14.5); WHITE BLOOD COUNT 24.3 x10^3/uL (4.0-11.0)
[2021-01-14 06:00] LABS: CALCIUM 6.8 mg/dL (8.5-10.1); CREATININE 7.1 mg/dL (0.7-1.3); GFR 9.2; POTASSIUM 5.5 mmol/L (3.5-5.1)
[2021-01-14 08:19] LABS: BASE EXCESS ABG -1 mmol/L (-3-3); HCO3 ABG 23 mmol/L (21-28); PCO2 ABG 36 mmHg (35-46); PO2 ABG 90 mmHg (65-108); SAT O2 ABG 97 % (92-99)
[2021-01-14 08:22] LABS: FIO2 ABG 50
[2021-01-14] MEDS: ISOSORBIDE MONONITRATE ER 30 MG TAB.ER.24H PO SCH (09:00)
[2021-01-14] MEDS: FUROSEMIDE 80 MG TABLET. PO SCH (09:00)
[2021-01-14] MEDS: METOPROLOL SUCC 24HR ER 50 MG TAB.ER.24H. PO SCH (09:00)
[2021-01-14] MEDS: amLODIPine BESYLATE 10 MG TABLET PO SCH (09:00)
[2021-01-14] MEDS: ASPIRIN ENTERIC COATED 81 MG TABLET.DR. PO SCH (09:00)
[2021-01-14] MEDS ORDERED: predniSONE 20 MG TABLET PO SCH (09:00)
--- NOTE | 2021-01-14 09:54 | PDOC ---
MAU BROWNING SMART ENERGY SPECIALIST 01/14/21 0954: CARDIO Progress Notes Date and Time Date of Service 01/14/2021 Time of Evaluation 0910 Subjective Subjective: Other (intubated) Vitals Vitals Vital Signs Date Time Temp Pulse Resp B/P (MAP) Pulse Ox O2 Delivery O2 Flow Rate FiO2 01/14/21 09:32 100 Ventilator 01/14/21 09:21 97.0 100 17 99/50 (66) 97.0 Weight Weight [ ] Input and Output Intake and Output Intake and Output 01/14/21 06:59 Intake Total 4479.83 ml Output Total 45 ml Balance 4434.83 ml Intake Oral 0 ml IV Total 2968.83 ml Blood Product IV Normal Saline Flush 1511 ml Output Urine Total 45 ml # Bowel Movements 3 Laboratory Labs Laboratory Tests Test 01/13/21 11:50 01/13/21 11:57 01/13/21 12:31 01/13/21 13:32 White Blood Count 28.8 x10^3/uL (4.0-11.0) Red Blood Count 3.43 x10^6/uL (4.30-5.70) Hemoglobin 10.0 g/dL (13.0-17.5) 11.9 g/dL (13.0-17.5) Hematocrit 31.3 % (39.0-53.0) 36.9 % (39.0-53.0) Mean Corpuscular Volume 91 fL (79-100) Mean Corpuscular Hemoglobin 29 pg (25-35) Mean Corpuscular Hemoglobin Concent 32 g/dL (31-37) 32 g/dL (31-37) Red Cell Distribution Width 16.8 % (11.5-14.5) Platelet Count 41 x10^3/uL (140-400) Neutrophils (%) (Auto) 91 % (31-73) Lymphocytes (%) (Auto) 2 % (24-48) Monocytes (%) (Auto) 6 % (0-9) Eosinophils (%) (Auto) 0 % (0-3) Basophils (%) (Auto) 0 % (0-3) Neutrophils # (Auto) 26.3 x10^3/uL (1.8-7.7) Lymphocytes # (Auto) 0.7 x10^3/uL (1.0-4.8) Monocytes # (Auto) 1.8 x10^3/uL (0.0-1.1) Eosinophils # (Auto) 0.0 x10^3/uL (0.0-0.7) Basophils # (Auto) 0.1 x10^3/uL (0.0-0.2) Glucose (Fingerstick) 134 mg/dL (70-99) 140 mg/dL (70-99) Test 01/13/21 14:40 01/13/21 14:54 01/13/21 16:19 01/13/21 16:25 Glucose (Fingerstick) 79 mg/dL (70-99) 17 mg/dL (70-99) 54 mg/dL (70-99) Sodium Level 137 mmol/L (136-145) Potassium Level 4.4 mmol/L (3.5-5.1) Chloride Level 99 mmol/L (98-107) Carbon Dioxide Level 27 mmol/L (21-32) Anion Gap 11 (6-14) Blood Urea Nitrogen 58 mg/dL (8-26) Creatinine 5.7 mg/dL (0.7-1.3) Estimated GFR (Cockcroft-Gault) 11.8 Glucose Level 157 mg/dL (70-99) Calcium Level 6.9 mg/dL (8.5-10.1) Test 01/13/21 16:31 01/13/21 17:20 01/13/21 17:30 01/13/21 18:00 Glucose (Fingerstick) 103 mg/dL (70-99) 27 mg/dL (70-99) 40 mg/dL (70-99) Hemoglobin 9.7 g/dL (13.0-17.5) Hematocrit 29.2 % (39.0-53.0) Mean Corpuscular Hemoglobin Concent 33 g/dL (31-37) Test 01/13/21 18:02 01/13/21 18:16 01/13/21 18:18 01/13/21 22:09 Glucose (Fingerstick) 37 mg/dL (70-99) 465 mg/dL (70-99) 133 mg/dL (70-99) 181 mg/dL (70-99) Test 01/13/21 23:59 01/14/21 00:01 01/14/21 03:01 01/14/21 05:35 Glucose (Fingerstick) 182 mg/dL (70-99) 195 mg/dL (70-99) Hemoglobin 10.5 g/dL (13.0-17.5) 10.5 g/dL (13.0-17.5) Hematocrit 32.1 % (39.0-53.0) 31.6 % (39.0-53.0) Mean Corpuscular Hemoglobin Concent 33 g/dL (31-37) 33 g/dL (31-37) White Blood Count 24.3 x10^3/uL (4.0-11.0) Red Blood Count 3.63 x10^6/uL (4.30-5.70) Mean Corpuscular Volume 87 fL (79-100) Mean Corpuscular Hemoglobin 29 pg (25-35) Red Cell Distribution Width 17.1 % (11.5-14.5) Platelet Count 37 x10^3/uL (140-400) Sodium Level 131 mmol/L (136-145) Potassium Level 5.5 mmol/L (3.5-5.1) Chloride Level 98 mmol/L (98-107) Carbon Dioxide Level 27 mmol/L (21-32) Anion Gap 6 (6-14) Blood Urea Nitrogen 88 mg/dL (8-26) Creatinine 7.1 mg/dL (0.7-1.3) Estimated GFR (Cockcroft-Gault) 9.2 Glucose Level 212 mg/dL (70-99) Calcium Level 6.8 mg/dL (8.5-10.1) Test 01/14/21 05:41 01/14/21 08:16 Glucose (Fingerstick) 217 mg/dL (70-99) O2 Saturation 97 % (92-99) Arterial Blood pH 7.43 (7.35-7.45) Arterial Blood pCO2 at Patient Temp 36 mmHg (35-46) Arterial Blood pO2 at Patient Temp 90 mmHg (65-108) Arterial Blood HCO3 23 mmol/L (21-28) Arterial Blood Base Excess -1 mmol/L (-3-3) FiO2 50 Review of Systems Constitutional: yes: alert, oriented Ears/Nose/Throat: Yes: no symptom reported Eyes: Yes: no symptom reported Pulmonary: Yes no symptom reported Cardiovascular: Yes no symptom reported Gastrointestional: Yes: no symptom reported Genitourinary: Yes: no symptom reported Musculoskeletal: Yes: no symptom reported Skin: Yes no symptom reported Physical Exam HEENT: Neck Supple W Full Motion Chest: Symmetric LUNGS: Other (intubated, vent) Heart: RRR (Possible atrial flutter) Abdomen: Other (soft, rectal tube with liquid black stool) Extremities: No Edema Neurology: other (sedated) Assessment Assessment no changes continue present regimen, SR with PACs K 5.5 Hgb stable at 10.5 check INR 1. Failure to thrive 2. Afib/flutter: presently SR/ST 3. NICM: EF at 30% 4. HTN: was on hypovolemic shock 5. ESRD with hyperkalemia: K 5.5 6. Thrombocytopenia and anemia: Hgb was down to 5.8. PLT at 69 7. AICD in situ: [facility] 8. Hypoglycemia 9. Metabolic encephalopathy: better 10. Transaminitis 11. Poor compliance 12. SAMM; refused CPAP in the past 13. NSTEMI: suspect type 2 demand mediated, trop peaked at 2.1, cp free in the setting of esrd, severe hyperkalemia and AFIB RVR 14. Mild coagulopathy: INR at 1.7 15. Acute GI bleed: received 4U PRBCs and 2U PLT and FFP. Hgb 10.5 post transfusion 16. S/P code blue/PEA: occurred around 530 AM suspect due to GI bleed, hypoglycemia, hypovolemic shock, and secondary hyperkalemia likely from sanguinous breakdown and absorption. Found agonal breathing, wide complex tach/PEA, ep given, 7 min to ROSC and SR afterwards, hypothermic and now rewarmed. Intubated and vent. 17. Acute respiratory failure: due to above. intubated/vent Recommendations 1. Hold BP meds. Continue vasopressin and levophed. Continue 200 mg amiodarone 2. No anticoagulation. Hold ASA. Follow GI recommendations. Recheck INR 3. Fluid off loading per HD 4. Supportive care Justicifation of Admission Dx: Justifications for Admission: Justification of Admission Dx: Yes KULDEEP MCRAE MD 01/14/21 1508: CARDIO Progress Notes Plan Plan Patient seen and examined. Agree with above nurse practitioner note. Continue supportive care. Poor long-term prognosis. MAU BROWNING APRN Jan 14, 2021 09:54 KULDEEP MCRAE MD Jan 14, 2021 15:08
--- NOTE | 2021-01-14 10:12 | CONS ---
PULMONARY CONSULTATION ATTENDING PHYSICIAN: Dr. Laguna. REASON FOR CONSULTATION: Respiratory failure and cardiac arrest. HISTORY OF PRESENT ILLNESS: The patient is a 75-year-old male who has a history of atrial fibrillation and cardiomyopathy with an ejection fraction of 30%. The patient was brought into the hospital after he was having altered mental status. The patient then coded. He had asystole and then became bradycardic and had a PEA arrest. He had about 12 minutes of CPR. He was also noted to be hypoglycemic with a blood sugar of 17. He has been hypotensive. The patient is having GI bleed. His ABGs showed a pH of 7.43, pCO2 of 36 and a pO2 of 90 with a bicarbonate of 23. Previously yesterday's bicarbonate was only 13. He has a BUN of 88 and a creatinine of 7.1. INR 3.1. The patient's hemoglobin dropped as low as 9.7. He is having bleeding per rectum. He has received 4 units of packed RBCs. Currently, he is on vasopressor including Levophed and vasopressin. The patient is on assist control mode, FiO2 of 50%. His chest x-ray did not reveal any definite consolidation. Endotracheal tube appears to be in satisfactory position. I have been asked to see him for further evaluation. PAST MEDICAL HISTORY: Significant for history of nonischemic cardiomyopathy with an EF of 30-35%, status post ICD; history of hypertension, history of end-stage renal disease, history of dyslipidemia and history of atrial fibrillation, not on anticoagulation in the past due to prior history of GI bleed. SOCIAL HISTORY: He is and lives by himself. No reported tobacco history. PAST SURGICAL HISTORY: None reported recently. ALLERGIES: None. MEDICATIONS: Reviewed as listed in the MRAD including oral prednisone. REVIEW OF SYSTEMS: Unable to obtain from the patient as he is on mechanical ventilation. PHYSICAL EXAMINATION: VITAL SIGNS: Reviewed. Blood pressure in the 90s on 2 pressors. Afebrile. NECK: Supple. LUNGS: With diminished breath sounds. HEART: Rhythm is regular. ABDOMEN: Soft. EXTREMITIES: With decreased pulses and cold. LABORATORY DATA: Reviewed. White cell count 24.3, hemoglobin 10.5 and platelets are 37,000. BUN 88 and a creatinine of 7.1. INR 3.1. ABGs are discussed in my history of present illness. IMPRESSION: 1. Acute respiratory failure secondary to cardiac arrest/ hypoglycemic encephalopathy. 2. Shock, likely hemorrhagic Cannot exclude a cardiac etiology as his ejection fraction is 30-35%. 3. Status post PEA arrest. 4. The patient with end-stage renal disease, on hemodialysis. Now presents with Metabolic acidosis. 5. Status post hemorrhagic shock. Still having GI bleed. He has received fresh frozen plasma. He needs to have a close followup on his coagulopathy panel. GI is following. 6. No definite consolidation seen on the chest x-ray. 7. hypoglycemic encephalopathy. 8. Thrombocytopenia RECOMMENDATIONS: 1. Continue present assist control mode. We will make changes based on the ABGs. 2. Continue present vasopressor support. 3. Packed RBCs transfusion as needed. He has so far received 4 units. 4. Follow GI recommendations. 5. monitor thrombocytopenia. 6. Hematology consultation for thrombocytopenia. 7. Follow renal recommendation. 8. Follow cardiology recommendations. 9. The patient has been on prednisone orally. We will change to IV hydrocortisone due to refractory shock. 10. monitor blood glucose closely. 11. Discussed with RN, discussed with RT. Chart reviewed. Total critical care time 40 minutes including decision making. The patient is DNR now. SIGRID DR: Rebecca TID: [id number] ADDIS
[2021-01-14] MEDS: FOLIC/VIT B COMP W-C (RENAL) TABLET. PO SCH (10:37)
[2021-01-14] MEDS: PANTOPRAZOLE IV PUSH 40 MG VIAL. IVP SCH (10:37)
[2021-01-14] MEDS: SODIUM BICARBONATE 650 MG TABLET. PO SCH ×2 (10:37→21:26)
[2021-01-14] MEDS: AMIODARONE HCL 200 MG TABLET. PO SCH (10:39)
--- NOTE | 2021-01-14 10:47 | PDOC ---
[facility] PROGRESS NOTE Date of Service DOS: DATE: 01/14/21 TIME: 10:44 Chief Complaint Chief Complaint s/p cardiac arrest, A M of 01/13, s/p code Acute blood loss anemia, acute lower GI hemorrhage severe malnutrition acute adrenal insufficiency Hyperkalemia Acute diastolic CHF Afib with RVR - metoprolol. eliquis, amiodarone per cardiology ESRD Diabetes type II Hypertension Hyperlipidemia GERD. History of Present Illness History of Present Illness 01/14, marked hypoglycemia yesterday, until steriods given, better today, will change to PPN from D10, will decrease prednisone, new adrenal insufficency he was made DNR yesterday night, diiscussed with 2 RN by phone cont current, she is imrpoved 01/13, s/p code, has gag reflex, is over breathing the vent, pupil reflex is poor, poss cataracts Mr Deleon is a 75-year-old male w/ PMHx ESRD, HTN, diastolic CHF, non-ischemic cardiomyopathy who has not gone to dialysis for the past couple of weeks and came to ED via EMS after a neighbor who found the patient confused. His glucose was in the 50s. They gave him some D50 and transported him to the hospital. While in the ER, he is noted to have hyperkalemia with a potassium level of 8.5. His BUN was 203. Creatinine was 18.4. He is also volume overloaded, has atrial fibrillation. Troponin was also high at 2.1. The patient was admitted to the ICU with nephrology and cardiology consultation. 01/10: Seen in ICU, labs improved 01/11: Transferred from ICU, required dialysis WBC 12. Still confused today. He has no complaints. Now is NSR with PVCs on telemetry. No Chest pain or shortness of breath. Vitals/I&O Vitals/I&O: Vital Signs Date Time Temp Pulse Resp B/P (MAP) Pulse Ox O2 Delivery O2 Flow Rate FiO2 01/14/21 10:39 100 99/50 01/14/21 09:32 100 Ventilator 01/14/21 09:21 97.0 17 97.0 I & O0 01/13/21 01/13/21 01/14/21 15:00 23:00 07:00 Intake Total 1511 ml 2046 ml 922.83 ml Output Total 10 ml 35 ml Balance 1511 ml 2036 ml 887.83 ml Physical Exam General: No acute distress, Other Heart: Regular rate, Other (MR) Lungs: Clear Abdomen: Normal bowel sounds Extremities: No clubbing Skin: No breakdown Labs Labs: Laboratory Tests Test 01/13/21 11:50 01/13/21 11:57 01/13/21 12:31 01/13/21 13:32 White Blood Count 28.8 x10^3/uL (4.0-11.0) Red Blood Count 3.43 x10^6/uL (4.30-5.70) Hemoglobin 10.0 g/dL (13.0-17.5) 11.9 g/dL (13.0-17.5) Hematocrit 31.3 % (39.0-53.0) 36.9 % (39.0-53.0) Mean Corpuscular Volume 91 fL (79-100) Mean Corpuscular Hemoglobin 29 pg (25-35) Mean Corpuscular Hemoglobin Concent 32 g/dL (31-37) 32 g/dL (31-37) Red Cell Distribution Width 16.8 % (11.5-14.5) Platelet Count 41 x10^3/uL (140-400) Neutrophils (%) (Auto) 91 % (31-73) Lymphocytes (%) (Auto) 2 % (24-48) Monocytes (%) (Auto) 6 % (0-9) Eosinophils (%) (Auto) 0 % (0-3) Basophils (%) (Auto) 0 % (0-3) Neutrophils # (Auto) 26.3 x10^3/uL (1.8-7.7) Lymphocytes # (Auto) 0.7 x10^3/uL (1.0-4.8) Monocytes # (Auto) 1.8 x10^3/uL (0.0-1.1) Eosinophils # (Auto) 0.0 x10^3/uL (0.0-0.7) Basophils # (Auto) 0.1 x10^3/uL (0.0-0.2) Glucose (Fingerstick) 134 mg/dL (70-99) 140 mg/dL (70-99) Test 01/13/21 14:40 01/13/21 14:54 01/13/21 16:19 01/13/21 16:25 Glucose (Fingerstick) 79 mg/dL (70-99) 17 mg/dL (70-99) 54 mg/dL (70-99) Sodium Level 137 mmol/L (136-145) Potassium Level 4.4 mmol/L (3.5-5.1) Chloride Level 99 mmol/L (98-107) Carbon Dioxide Level 27 mmol/L (21-32) Anion Gap 11 (6-14) Blood Urea Nitrogen 58 mg/dL (8-26) Creatinine 5.7 mg/dL (0.7-1.3) Estimated GFR (Cockcroft-Gault) 11.8 Glucose Level 157 mg/dL (70-99) Calcium Level 6.9 mg/dL (8.5-10.1) Test 01/13/21 16:31 01/13/21 17:20 01/13/21 17:30 01/13/21 18:00 Glucose (Fingerstick) 103 mg/dL (70-99) 27 mg/dL (70-99) 40 mg/dL (70-99) Hemoglobin 9.7 g/dL (13.0-17.5) Hematocrit 29.2 % (39.0-53.0) Mean Corpuscular Hemoglobin Concent 33 g/dL (31-37) Test 01/13/21 18:02 01/13/21 18:16 01/13/21 18:18 01/13/21 22:09 Glucose (Fingerstick) 37 mg/dL (70-99) 465 mg/dL (70-99) 133 mg/dL (70-99) 181 mg/dL (70-99) Test 01/13/21 23:59 01/14/21 00:01 01/14/21 03:01 01/14/21 05:35 Glucose (Fingerstick) 182 mg/dL (70-99) 195 mg/dL (70-99) Hemoglobin 10.5 g/dL (13.0-17.5) 10.5 g/dL (13.0-17.5) Hematocrit 32.1 % (39.0-53.0) 31.6 % (39.0-53.0) Mean Corpuscular Hemoglobin Concent 33 g/dL (31-37) 33 g/dL (31-37) White Blood Count 24.3 x10^3/uL (4.0-11.0) Red Blood Count 3.63 x10^6/uL (4.30-5.70) Mean Corpuscular Volume 87 fL (79-100) Mean Corpuscular Hemoglobin 29 pg (25-35) Red Cell Distribution Width 17.1 % (11.5-14.5) Platelet Count 37 x10^3/uL (140-400) Sodium Level 131 mmol/L (136-145) Potassium Level 5.5 mmol/L (3.5-5.1) Chloride Level 98 mmol/L (98-107) Carbon Dioxide Level 27 mmol/L (21-32) Anion Gap 6 (6-14) Blood Urea Nitrogen 88 mg/dL (8-26) Creatinine 7.1 mg/dL (0.7-1.3) Estimated GFR (Cockcroft-Gault) 9.2 Glucose Level 212 mg/dL (70-99) Calcium Level 6.8 mg/dL (8.5-10.1) Test 01/14/21 05:41 01/14/21 08:16 Glucose (Fingerstick) 217 mg/dL (70-99) O2 Saturation 97 % (92-99) Arterial Blood pH 7.43 (7.35-7.45) Arterial Blood pCO2 at Patient Temp 36 mmHg (35-46) Arterial Blood pO2 at Patient Temp 90 mmHg (65-108) Arterial Blood HCO3 23 mmol/L (21-28) Arterial Blood Base Excess -1 mmol/L (-3-3) FiO2 50 Assessment and Plan Assessmemt and Plan Problems Medical Problems: (1) Elevated troponin Status: Acute (2) Hyperkalemia Status: Acute (3) Hypoglycemia Status: Acute Comment Review of Relevant I have reviewed the following items jake (where applicable) has been applied. Medications: Current Medications Medications (Trade) Dose Ordered Sig/Travis Route PRN Reason Start Time Stop Time Status Last Admin Dose Admin Midazolam HCl (Versed) 5 mg 1X ONCE IV 01/13/21 10:45 01/13/21 10:46 DC 01/13/21 10:40 Midazolam HCl 100 ml @ 1 mls/hr CONT PRN IV SEE I/O RECORD 01/13/21 11:45 01/14/21 05:33 Fentanyl Citrate 2,750 ml @ 0 mls/hr CONT PRN IV SEE PROTOCOL 01/13/21 13:00 01/13/21 13:12 Dextrose 1,000 ml @ 100 mls/hr Q10H IV 01/13/21 14:45 01/13/21 14:59 Pantoprazole Sodium (PROTONIX VIAL for IV PUSH) 40 mg DAILYAC IVP 01/14/21 07:30 01/14/21 10:37 Methylprednisolone Sodium Succinate (SOLU-Medrol 40MG VIAL) 40 mg 1X ONCE IV 01/13/21 17:30 01/13/21 17:31 DC 01/13/21 17:35 Prednisone (Prednisone) 20 mg DAILY PO 01/14/21 09:00 01/14/21 10:37 Justifications for Admission Other Justification SELVIN PEREIRA MD Jan 14, 2021 10:47
--- NOTE | 2021-01-14 11:37 | PDOC ---
Date of Service: DATE: 01/14/21 TIME: 11:32 Objective: Objective: D/w nurse - family had questions re: scoping, on two pressors, is now sedated - was moving some yesterday - unclear if intentional, DNR, ongoing dark output from rectal tube. Vital Signs: Vital Signs Date Time Temp Pulse Resp B/P (MAP) Pulse Ox O2 Delivery O2 Flow Rate FiO2 01/14/21 10:39 100 99/50 01/14/21 10:00 97.0 17 100 Ventilator 97.0 Labs: Laboratory Tests Test 01/13/21 11:50 01/13/21 11:57 01/13/21 12:31 01/13/21 13:32 White Blood Count 28.8 x10^3/uL Red Blood Count 3.43 x10^6/uL Hemoglobin 10.0 g/dL 11.9 g/dL Hematocrit 31.3 % 36.9 % Mean Corpuscular Volume 91 fL Mean Corpuscular Hemoglobin 29 pg Mean Corpuscular Hemoglobin Concent 32 g/dL 32 g/dL Red Cell Distribution Width 16.8 % Platelet Count 41 x10^3/uL Neutrophils (%) (Auto) 91 % Lymphocytes (%) (Auto) 2 % Monocytes (%) (Auto) 6 % Eosinophils (%) (Auto) 0 % Basophils (%) (Auto) 0 % Neutrophils # (Auto) 26.3 x10^3/uL Lymphocytes # (Auto) 0.7 x10^3/uL Monocytes # (Auto) 1.8 x10^3/uL Eosinophils # (Auto) 0.0 x10^3/uL Basophils # (Auto) 0.1 x10^3/uL Glucose (Fingerstick) 134 mg/dL 140 mg/dL Test 01/13/21 14:40 01/13/21 14:54 01/13/21 16:19 01/13/21 16:25 Glucose (Fingerstick) 79 mg/dL 17 mg/dL 54 mg/dL Sodium Level 137 mmol/L Potassium Level 4.4 mmol/L Chloride Level 99 mmol/L Carbon Dioxide Level 27 mmol/L Anion Gap 11 Blood Urea Nitrogen 58 mg/dL Creatinine 5.7 mg/dL Estimated GFR (Cockcroft-Gault) 11.8 Glucose Level 157 mg/dL Calcium Level 6.9 mg/dL Test 01/13/21 16:31 01/13/21 17:20 01/13/21 17:30 01/13/21 18:00 Glucose (Fingerstick) 103 mg/dL 27 mg/dL 40 mg/dL Hemoglobin 9.7 g/dL Hematocrit 29.2 % Mean Corpuscular Hemoglobin Concent 33 g/dL Test 01/13/21 18:02 01/13/21 18:16 01/13/21 18:18 01/13/21 22:09 Glucose (Fingerstick) 37 mg/dL 465 mg/dL 133 mg/dL 181 mg/dL Test 01/13/21 23:59 01/14/21 00:01 01/14/21 03:01 01/14/21 05:35 Glucose (Fingerstick) 182 mg/dL 195 mg/dL Hemoglobin 10.5 g/dL 10.5 g/dL Hematocrit 32.1 % 31.6 % Mean Corpuscular Hemoglobin Concent 33 g/dL 33 g/dL White Blood Count 24.3 x10^3/uL Red Blood Count 3.63 x10^6/uL Mean Corpuscular Volume 87 fL Mean Corpuscular Hemoglobin 29 pg Red Cell Distribution Width 17.1 % Platelet Count 37 x10^3/uL Sodium Level 131 mmol/L Potassium Level 5.5 mmol/L Chloride Level 98 mmol/L Carbon Dioxide Level 27 mmol/L Anion Gap 6 Blood Urea Nitrogen 88 mg/dL Creatinine 7.1 mg/dL Estimated GFR (Cockcroft-Gault) 9.2 Glucose Level 212 mg/dL Calcium Level 6.8 mg/dL Test 01/14/21 05:41 01/14/21 08:16 Glucose (Fingerstick) 217 mg/dL O2 Saturation 97 % Arterial Blood pH 7.43 Arterial Blood pCO2 at Patient Temp 36 mmHg Arterial Blood pO2 at Patient Temp 90 mmHg Arterial Blood HCO3 23 mmol/L Arterial Blood Base Excess -1 mmol/L FiO2 50 PE: GEN: intubated LUNGS: vent HEART: tachycardic ABD: non-distended NEURO/PSYCH: sedated A/P: S/p code Melena, anemia, thrombocytopenia (plt 37), coagulopathy NSTEMI, NICM, ESRD on HD -- Hgb improved w/ pRBCs, rechecking INR. Poor candidate for endoscopy. Justicifation of Admission Dx: Justifications for Admission: Justification of Admission Dx: Yes DAVID SLATER Jan 14, 2021 11:37
--- NOTE | 2021-01-14 11:47 | PDOC ---
Renal-Progress Notes Subjective Notes Notes NONE History of Present Illness Hx of present illness INTUBATED Vitals Vitals Vital Signs Date Time Temp Pulse Resp B/P (MAP) Pulse Ox O2 Delivery O2 Flow Rate FiO2 01/14/21 10:39 100 99/50 01/14/21 10:00 97.0 17 100 Ventilator 97.0 Weight Weight [ ] I.O. Intake and Output Intake and Output 01/14/21 07:00 Intake Total 4479.83 ml Output Total 45 ml Balance 4434.83 ml Intake Oral 0 ml IV Total 2968.83 ml Blood Product IV Normal Saline Flush 1511 ml Output Urine Total 45 ml # Bowel Movements 3 Labs Labs Laboratory Tests Test 01/13/21 11:50 01/13/21 11:57 01/13/21 12:31 01/13/21 13:32 White Blood Count 28.8 x10^3/uL (4.0-11.0) Red Blood Count 3.43 x10^6/uL (4.30-5.70) Hemoglobin 10.0 g/dL (13.0-17.5) 11.9 g/dL (13.0-17.5) Hematocrit 31.3 % (39.0-53.0) 36.9 % (39.0-53.0) Mean Corpuscular Volume 91 fL (79-100) Mean Corpuscular Hemoglobin 29 pg (25-35) Mean Corpuscular Hemoglobin Concent 32 g/dL (31-37) 32 g/dL (31-37) Red Cell Distribution Width 16.8 % (11.5-14.5) Platelet Count 41 x10^3/uL (140-400) Neutrophils (%) (Auto) 91 % (31-73) Lymphocytes (%) (Auto) 2 % (24-48) Monocytes (%) (Auto) 6 % (0-9) Eosinophils (%) (Auto) 0 % (0-3) Basophils (%) (Auto) 0 % (0-3) Neutrophils # (Auto) 26.3 x10^3/uL (1.8-7.7) Lymphocytes # (Auto) 0.7 x10^3/uL (1.0-4.8) Monocytes # (Auto) 1.8 x10^3/uL (0.0-1.1) Eosinophils # (Auto) 0.0 x10^3/uL (0.0-0.7) Basophils # (Auto) 0.1 x10^3/uL (0.0-0.2) Glucose (Fingerstick) 134 mg/dL (70-99) 140 mg/dL (70-99) Test 01/13/21 14:40 01/13/21 14:54 01/13/21 16:19 01/13/21 16:25 Glucose (Fingerstick) 79 mg/dL (70-99) 17 mg/dL (70-99) 54 mg/dL (70-99) Sodium Level 137 mmol/L (136-145) Potassium Level 4.4 mmol/L (3.5-5.1) Chloride Level 99 mmol/L (98-107) Carbon Dioxide Level 27 mmol/L (21-32) Anion Gap 11 (6-14) Blood Urea Nitrogen 58 mg/dL (8-26) Creatinine 5.7 mg/dL (0.7-1.3) Estimated GFR (Cockcroft-Gault) 11.8 Glucose Level 157 mg/dL (70-99) Calcium Level 6.9 mg/dL (8.5-10.1) Test 01/13/21 16:31 01/13/21 17:20 01/13/21 17:30 01/13/21 18:00 Glucose (Fingerstick) 103 mg/dL (70-99) 27 mg/dL (70-99) 40 mg/dL (70-99) Hemoglobin 9.7 g/dL (13.0-17.5) Hematocrit 29.2 % (39.0-53.0) Mean Corpuscular Hemoglobin Concent 33 g/dL (31-37) Test 01/13/21 18:02 01/13/21 18:16 01/13/21 18:18 01/13/21 22:09 Glucose (Fingerstick) 37 mg/dL (70-99) 465 mg/dL (70-99) 133 mg/dL (70-99) 181 mg/dL (70-99) Test 01/13/21 23:59 01/14/21 00:01 01/14/21 03:01 01/14/21 05:35 Glucose (Fingerstick) 182 mg/dL (70-99) 195 mg/dL (70-99) Hemoglobin 10.5 g/dL (13.0-17.5) 10.5 g/dL (13.0-17.5) Hematocrit 32.1 % (39.0-53.0) 31.6 % (39.0-53.0) Mean Corpuscular Hemoglobin Concent 33 g/dL (31-37) 33 g/dL (31-37) White Blood Count 24.3 x10^3/uL (4.0-11.0) Red Blood Count 3.63 x10^6/uL (4.30-5.70) Mean Corpuscular Volume 87 fL (79-100) Mean Corpuscular Hemoglobin 29 pg (25-35) Red Cell Distribution Width 17.1 % (11.5-14.5) Platelet Count 37 x10^3/uL (140-400) Sodium Level 131 mmol/L (136-145) Potassium Level 5.5 mmol/L (3.5-5.1) Chloride Level 98 mmol/L (98-107) Carbon Dioxide Level 27 mmol/L (21-32) Anion Gap 6 (6-14) Blood Urea Nitrogen 88 mg/dL (8-26) Creatinine 7.1 mg/dL (0.7-1.3) Estimated GFR (Cockcroft-Gault) 9.2 Glucose Level 212 mg/dL (70-99) Calcium Level 6.8 mg/dL (8.5-10.1) Test 01/14/21 05:41 01/14/21 08:16 Glucose (Fingerstick) 217 mg/dL (70-99) O2 Saturation 97 % (92-99) Arterial Blood pH 7.43 (7.35-7.45) Arterial Blood pCO2 at Patient Temp 36 mmHg (35-46) Arterial Blood pO2 at Patient Temp 90 mmHg (65-108) Arterial Blood HCO3 23 mmol/L (21-28) Arterial Blood Base Excess -1 mmol/L (-3-3) FiO2 50 Review of Systems Constitutional: yes: unresponsive Ears/Nose/Throat: Yes: no symptom reported Eyes: Yes: no symptom reported Pulmonary: Yes no symptom reported Cardiovascular: Yes no symptom reported Gastrointestional: Yes: no symptom reported Genitourinary: Yes: no symptom reported Musculoskeletal: Yes: no symptom reported Skin: Yes no symptom reported Physical Exam General Appearance: no apparent distress Skin: warm Respiratory: bilateral CTA, decreased breath sounds Heart: other (AFIB WITH HR OF 130) Abdomen: soft, bowel sounds present Genitourinary: bladder flat Extremities: pulses present Neurology: other (sedated) Assessment Assessment IMP CARDIAC ARREST GI BLEED SEVERE ANEMIA LIFE THREATENING HYPERKALEMIA-RESOLVED MET ENCEPHALOPATHY UREMIA ANEMIA HTN-MALIGNANT - IMPROVED NON COMPLIANCE NON ISCHEMIC CM LEUCOCYTOSIS AFIB RVR MALFUNCTIONING AV ACCESS ESRD PLAN HAS TEMP HD LINE AV ACCESS WORK ONCE MORE STABLE HD TOMORROW VENT SUPPORT ENC COMPLIANCE CARDIOLOGY EVAL AND TX GI EVAL AND TX WILL FOLLOW ETTA JO MD Jan 14, 2021 11:47
[2021-01-14] MEDS ORDERED: EPINEPHrine SYRINGE 1 MG/10 ML SYRINGE ONE (12:00)
[2021-01-14] MEDS ORDERED: PHYTONADIONE 10 MG/ML AMPUL. SQ ONE ×2 (12:15→15:00)
[2021-01-14] MEDS ORDERED: AMINO AC 3%/ELECTROLYTE/GLYCER 1,000 ML IV SCH (12:30)
[2021-01-14] MEDS: fentaNYL HIGH DOSE PCA 2,750 ML IV PRN (12:37)
[2021-01-14] MEDS ORDERED: TPN PER PHARMACY MC PRN ×2 (12:45)
--- NOTE | 2021-01-14 12:58 | NUR ---
Pharmacy TPN Dosing Note S: ULISES PICHARDO is a 75 year old M Currently receiving Central Continuous TPN started 01/14/21 B:Pertinent PMH: GI bleed Height: 5 feet, 9 inches Weight: 80.5 kg Current diet: NPO LABS: Sodium: 131 Potassium: 5.5 Chloride: 98 Calcium: 6.8 Corrected Calcium: 8.64 Magnesium: 2.9 (01/13) CO2: 27 SCr: 7.1 Glucose: 212, 217 Albumin: 1.7 AST: 203 ALT: 469 TPN FORMULA: TPN TYPE: Central Continuous AMINO ACIDS: 60 gm DEXTROSE: 195 gm LIPIDS: 20 gm SODIUM CHLORIDE: 90 mEq CALCIUM: 10 mEq MULTIPLE VITAMIN: 5 ml TRACE ELEMENTS: 1 ml TPN PLAN: -Start TPN with standard macros. -Serum potassium, phos and magnesium elevated - omit these electrolytes from TPN. -Concentrate TPN due to HD status. -CMP, mag, phos tomorrow. R: Begin TPN @ 45 ml/hr and above formula. Will monitor electrolytes, glucose, and tolerance to TPN. GURWINDER DUARTE [facility], 01/14/21 [id number]
[2021-01-14 14:34] LABS: PROTHROMBIN TIME PATIENT 23.4 SEC (11.7-14.0)
--- NOTE | 2021-01-14 15:46 | NUR ---
SS following up with discharge planning. SS reviewed pt chart and discussed with pt RN. Pt is currently on the vent at 45%. Pt on Fentanyl, Versed, Levophed, and Vasopressin. TPN starting. Pt having bloody stools. DNR. Not stable. SS will continue to follow for discharge planning.
[2021-01-14 19:02] LABS: HEMATOCRIT 31.7 % (39.0-53.0); HEMOGLOBIN 10.3 g/dL (13.0-17.5)
[2021-01-14] MEDS: NOREPINEPHRINE VIAL 32 MG in IV DEXTROSE 5% 218 ML IV PRN (20:30)
[2021-01-14] MEDS: HYDROCORTISONE SOD SUCC/PF 100 MG/2 ML VIAL. IVP SCH (21:27)
[2021-01-14] MEDS ORDERED: AMINO ACID IV SCH (22:00)
[2021-01-14] MEDS ORDERED: TOTAL PARENTERAL NUTRITION IV SCH (22:00)
[2021-01-14] MEDS ORDERED: [UNRECOGNIZED DRUG - OTHER] IV SCH (22:00)
[2021-01-14] MEDS ORDERED: DEXTROSE 70% IV SCH (22:00)
[2021-01-15] VITALS (9 sets, daily range): BP systolic 90–130; BP diastolic 48–56
[2021-01-15 00:46] LABS: HEMATOCRIT 30.3 % (39.0-53.0); HEMOGLOBIN 9.7 g/dL (13.0-17.5)
[2021-01-15] MEDS: MIDAZOLAM 100mg/100ml NS BAG 100 ML IV PRN (01:42)
--- NOTE | 2021-01-15 05:59 | RAD ---
Single view chest dated 01/15/2021. Comparison made to 01/13/2021. CLINICAL INDICATION: Respiratory failure. FINDINGS: Single upright portable exam performed. Heart and mediastinal contours are stable. Dual lead left sub clavian pacer in place, unchanged. Endotracheal tube, nasogastric tube and right-sided central cathet ers, unchanged. There is some patchy increased density at the retrocardiac left base, similar to prior study. Lungs a re otherwise clear. No pleural effusion or pneumothorax. IMPRESSION: No significant interval change compared to 01/13/2021. Electronically signed by: Peterson Charles MD (01/15/2021 5:57 AM) ALAN
[2021-01-15] MEDS: HYDROCORTISONE SOD SUCC/PF 100 MG/2 ML VIAL. IVP SCH ×2 (06:44→08:20)
[2021-01-15 07:35] LABS: BASE EXCESS ABG -17 mmol/L (-3-3); HCO3 ABG 12 mmol/L (21-28); PCO2 ABG 37 mmHg (35-46); PO2 ABG 153 mmHg (65-108); SAT O2 ABG 99 % (92-99)
[2021-01-15 07:36] LABS: FIO2 ABG 40
[2021-01-15 08:02] LABS: BASO # 0.2 x10^3/uL (0.0-0.2); BASO % 1 % (0-3); EOS % 0 % (0-3); HEMATOCRIT 28.7 % (39.0-53.0); HEMOGLOBIN 9.5 g/dL (13.0-17.5); LYMPH # 1.7 x10^3/uL (1.0-4.8); LYMPH % 6 % (24-48); MEAN CORPUSCULAR HEMOGLOBIN 32 pg (25-35); MEAN CORPUSCULAR HGB CONC 33 g/dL (31-37); MEAN CORPUSCULAR VOLUME 96 fL (79-100); MONO # 2.8 x10^3/uL (0.0-1.1); MONO % 10 % (0-9); NEUT # 24.1 x10^3/uL (1.8-7.7); NEUT % 84 % (31-73); PLATELET COUNT 84 x10^3/uL (140-400); WHITE BLOOD COUNT 28.8 x10^3/uL (4.0-11.0)
[2021-01-15] MEDS: PANTOPRAZOLE IV PUSH 40 MG VIAL. IVP SCH (08:20)
[2021-01-15 08:21] LABS: ALBUMIN 1.5 g/dL (3.4-5.0); CALCIUM 6.1 mg/dL (8.5-10.1); MAGNESIUM 2.4 mg/dL (1.8-2.4)
[2021-01-15] MEDS: FOLIC/VIT B COMP W-C (RENAL) TABLET. PO SCH (08:21)
[2021-01-15] MEDS: ASPIRIN ENTERIC COATED 81 MG TABLET.DR. PO SCH (08:21)
[2021-01-15] MEDS: AMIODARONE HCL 200 MG TABLET. PO SCH (08:21)
[2021-01-15] MEDS: SODIUM BICARBONATE 650 MG TABLET. PO SCH (08:21)
[2021-01-15] MEDS: amLODIPine BESYLATE 10 MG TABLET PO SCH (08:22)
[2021-01-15] MEDS: METOPROLOL SUCC 24HR ER 50 MG TAB.ER.24H. PO SCH (08:22)
[2021-01-15] MEDS: ISOSORBIDE MONONITRATE ER 30 MG TAB.ER.24H PO SCH (08:22)
[2021-01-15] MEDS: FUROSEMIDE 80 MG TABLET. PO SCH (08:22)
[2021-01-15 08:28] LABS: PHOSPHORUS 13.3 mg/dL (2.6-4.7)
[2021-01-15] MEDS ORDERED: IV NORMAL SALINE 1000ML BAG 1,000 ML IV PRN (08:45)
[2021-01-15] MEDS ORDERED: predniSONE 10 MG TABLET PO SCH (09:00)
[2021-01-15] MEDS ORDERED: DIALYSIS PATIENT. MC PRN ×2 (09:15)
[2021-01-15 09:17] LABS: TOTAL PROTEIN 3.5 g/dL (6.4-8.2)
[2021-01-15 09:18] LABS: ALBUMIN/GLOBULIN RATIO 0.8 (1.0-1.7)
[2021-01-15] MEDS: PHENYLEPHRINE INJ 50 MG in IV NORMAL SALINE 250ML 250 ML IV PRN (09:18)
[2021-01-15] MEDS ORDERED: ALBUMIN HUMAN 25% 100 ML IV ONE (09:30)
--- NOTE | 2021-01-15 09:59 | PDOC ---
PULMONARY PROGRESS NOTES DATE: 01/15/21 TIME: 09:58 Subjective Patient remains on ventilatory support 40% and a PEEP of 5 He needs to have hematuria and GI bleeding remains on multiple pressors Dialysis was terminated this morning by Dr. Garay Vitals Vital Signs Date Time Temp Pulse Resp B/P (MAP) Pulse Ox O2 Delivery O2 Flow Rate FiO2 01/15/21 09:05 98.2 93 16 92/53 (66) 98 Ventilator 98.2 Comments intubated/sedated Lungs: Clear Extremities: Other (edema +2 BLE ) Skin: Dry Labs Laboratory Tests Test 01/13/21 11:50 01/13/21 11:57 01/13/21 12:31 01/13/21 13:32 White Blood Count 28.8 x10^3/uL (4.0-11.0) Red Blood Count 3.43 x10^6/uL (4.30-5.70) Hemoglobin 10.0 g/dL (13.0-17.5) 11.9 g/dL (13.0-17.5) Hematocrit 31.3 % (39.0-53.0) 36.9 % (39.0-53.0) Mean Corpuscular Volume 91 fL (79-100) Mean Corpuscular Hemoglobin 29 pg (25-35) Mean Corpuscular Hemoglobin Concent 32 g/dL (31-37) 32 g/dL (31-37) Red Cell Distribution Width 16.8 % (11.5-14.5) Platelet Count 41 x10^3/uL (140-400) Neutrophils (%) (Auto) 91 % (31-73) Lymphocytes (%) (Auto) 2 % (24-48) Monocytes (%) (Auto) 6 % (0-9) Eosinophils (%) (Auto) 0 % (0-3) Basophils (%) (Auto) 0 % (0-3) Neutrophils # (Auto) 26.3 x10^3/uL (1.8-7.7) Lymphocytes # (Auto) 0.7 x10^3/uL (1.0-4.8) Monocytes # (Auto) 1.8 x10^3/uL (0.0-1.1) Eosinophils # (Auto) 0.0 x10^3/uL (0.0-0.7) Basophils # (Auto) 0.1 x10^3/uL (0.0-0.2) Glucose (Fingerstick) 134 mg/dL (70-99) 140 mg/dL (70-99) Test 01/13/21 14:40 01/13/21 14:54 01/13/21 16:19 01/13/21 16:25 Glucose (Fingerstick) 79 mg/dL (70-99) 17 mg/dL (70-99) 54 mg/dL (70-99) Sodium Level 137 mmol/L (136-145) Potassium Level 4.4 mmol/L (3.5-5.1) Chloride Level 99 mmol/L (98-107) Carbon Dioxide Level 27 mmol/L (21-32) Anion Gap 11 (6-14) Blood Urea Nitrogen 58 mg/dL (8-26) Creatinine 5.7 mg/dL (0.7-1.3) Estimated GFR (Cockcroft-Gault) 11.8 Glucose Level 157 mg/dL (70-99) Calcium Level 6.9 mg/dL (8.5-10.1) Test 01/13/21 16:31 01/13/21 17:20 01/13/21 17:30 01/13/21 18:00 Glucose (Fingerstick) 103 mg/dL (70-99) 27 mg/dL (70-99) 40 mg/dL (70-99) Hemoglobin 9.7 g/dL (13.0-17.5) Hematocrit 29.2 % (39.0-53.0) Mean Corpuscular Hemoglobin Concent 33 g/dL (31-37) Test 01/13/21 18:02 01/13/21 18:16 01/13/21 18:18 01/13/21 22:09 Glucose (Fingerstick) 37 mg/dL (70-99) 465 mg/dL (70-99) 133 mg/dL (70-99) 181 mg/dL (70-99) Test 01/13/21 23:59 01/14/21 00:01 01/14/21 03:01 01/14/21 05:35 Glucose (Fingerstick) 182 mg/dL (70-99) 195 mg/dL (70-99) Hemoglobin 10.5 g/dL (13.0-17.5) 10.5 g/dL (13.0-17.5) Hematocrit 32.1 % (39.0-53.0) 31.6 % (39.0-53.0) Mean Corpuscular Hemoglobin Concent 33 g/dL (31-37) 33 g/dL (31-37) White Blood Count 24.3 x10^3/uL (4.0-11.0) Red Blood Count 3.63 x10^6/uL (4.30-5.70) Mean Corpuscular Volume 87 fL (79-100) Mean Corpuscular Hemoglobin 29 pg (25-35) Red Cell Distribution Width 17.1 % (11.5-14.5) Platelet Count 37 x10^3/uL (140-400) Sodium Level 131 mmol/L (136-145) Potassium Level 5.5 mmol/L (3.5-5.1) Chloride Level 98 mmol/L (98-107) Carbon Dioxide Level 27 mmol/L (21-32) Anion Gap 6 (6-14) Blood Urea Nitrogen 88 mg/dL (8-26) Creatinine 7.1 mg/dL (0.7-1.3) Estimated GFR (Cockcroft-Gault) 9.2 Glucose Level 212 mg/dL (70-99) Calcium Level 6.8 mg/dL (8.5-10.1) Test 01/14/21 05:41 01/14/21 08:16 01/14/21 14:20 01/14/21 18:30 Glucose (Fingerstick) 217 mg/dL (70-99) O2 Saturation 97 % (92-99) Arterial Blood pH 7.43 (7.35-7.45) Arterial Blood pCO2 at Patient Temp 36 mmHg (35-46) Arterial Blood pO2 at Patient Temp 90 mmHg (65-108) Arterial Blood HCO3 23 mmol/L (21-28) Arterial Blood Base Excess -1 mmol/L (-3-3) FiO2 50 Prothrombin Time 23.4 SEC (11.7-14.0) Prothromb Time International Ratio 2.1 (0.8-1.1) Hemoglobin 10.3 g/dL (13.0-17.5) Hematocrit 31.7 % (39.0-53.0) Mean Corpuscular Hemoglobin Concent 33 g/dL (31-37) Test 01/14/21 18:35 01/15/21 00:05 01/15/21 07:25 01/15/21 07:35 Glucose (Fingerstick) 156 mg/dL (70-99) Hemoglobin 9.7 g/dL (13.0-17.5) 9.5 g/dL (13.0-17.5) Hematocrit 30.3 % (39.0-53.0) 28.7 % (39.0-53.0) Mean Corpuscular Hemoglobin Concent 32 g/dL (31-37) 33 g/dL (31-37) Glucose Level 187 mg/dL (70-99) 200 mg/dL (70-99) O2 Saturation 99 % (92-99) Arterial Blood pH 7.12 (7.35-7.45) Arterial Blood pCO2 at Patient Temp 37 mmHg (35-46) Arterial Blood pO2 at Patient Temp 153 mmHg (65-108) Arterial Blood HCO3 12 mmol/L (21-28) Arterial Blood Base Excess -17 mmol/L (-3-3) FiO2 40 White Blood Count 28.8 x10^3/uL (4.0-11.0) Red Blood Count 3.00 x10^6/uL (4.30-5.70) Mean Corpuscular Volume 96 fL (79-100) Mean Corpuscular Hemoglobin 32 pg (25-35) Red Cell Distribution Width 19.0 % (11.5-14.5) Platelet Count 84 x10^3/uL (140-400) Neutrophils (%) (Auto) 84 % (31-73) Lymphocytes (%) (Auto) 6 % (24-48) Monocytes (%) (Auto) 10 % (0-9) Eosinophils (%) (Auto) 0 % (0-3) Basophils (%) (Auto) 1 % (0-3) Neutrophils # (Auto) 24.1 x10^3/uL (1.8-7.7) Lymphocytes # (Auto) 1.7 x10^3/uL (1.0-4.8) Monocytes # (Auto) 2.8 x10^3/uL (0.0-1.1) Eosinophils # (Auto) 0.0 x10^3/uL (0.0-0.7) Basophils # (Auto) 0.2 x10^3/uL (0.0-0.2) Sodium Level 129 mmol/L (136-145) Potassium Level 8.0 mmol/L (3.5-5.1) Chloride Level 94 mmol/L (98-107) Carbon Dioxide Level 13 mmol/L (21-32) Anion Gap 22 (6-14) Blood Urea Nitrogen 123 mg/dL (8-26) Creatinine 9.0 mg/dL (0.7-1.3) Estimated GFR (Cockcroft-Gault) 7.0 BUN/Creatinine Ratio 14 (6-20) Calcium Level 6.1 mg/dL (8.5-10.1) Phosphorus Level 13.3 mg/dL (2.6-4.7) Magnesium Level 2.4 mg/dL (1.8-2.4) Total Bilirubin 8.0 mg/dL (0.2-1.0) Aspartate Amino Transf (AST/SGOT) 1458 U/L (15-37) Alanine Aminotransferase (ALT/SGPT) 912 U/L (16-63) Alkaline Phosphatase 133 U/L (46-116) Total Protein 3.5 g/dL (6.4-8.2) Albumin 1.5 g/dL (3.4-5.0) Albumin/Globulin Ratio 0.8 (1.0-1.7) Laboratory Tests Test 01/14/21 14:20 01/14/21 18:30 01/14/21 18:35 01/15/21 00:05 Prothrombin Time 23.4 SEC (11.7-14.0) Prothromb Time International Ratio 2.1 (0.8-1.1) Hemoglobin 10.3 g/dL (13.0-17.5) 9.7 g/dL (13.0-17.5) Hematocrit 31.7 % (39.0-53.0) 30.3 % (39.0-53.0) Mean Corpuscular Hemoglobin Concent 33 g/dL (31-37) 32 g/dL (31-37) Glucose (Fingerstick) 156 mg/dL (70-99) Glucose Level 187 mg/dL (70-99) Test 01/15/21 07:25 01/15/21 07:35 O2 Saturation 99 % (92-99) Arterial Blood pH 7.12 (7.35-7.45) Arterial Blood pCO2 at Patient Temp 37 mmHg (35-46) Arterial Blood pO2 at Patient Temp 153 mmHg (65-108) Arterial Blood HCO3 12 mmol/L (21-28) Arterial Blood Base Excess -17 mmol/L (-3-3) FiO2 40 White Blood Count 28.8 x10^3/uL (4.0-11.0) Red Blood Count 3.00 x10^6/uL (4.30-5.70) Hemoglobin 9.5 g/dL (13.0-17.5) Hematocrit 28.7 % (39.0-53.0) Mean Corpuscular Volume 96 fL (79-100) Mean Corpuscular Hemoglobin 32 pg (25-35) Mean Corpuscular Hemoglobin Concent 33 g/dL (31-37) Red Cell Distribution Width 19.0 % (11.5-14.5) Platelet Count 84 x10^3/uL (140-400) Neutrophils (%) (Auto) 84 % (31-73) Lymphocytes (%) (Auto) 6 % (24-48) Monocytes (%) (Auto) 10 % (0-9) Eosinophils (%) (Auto) 0 % (0-3) Basophils (%) (Auto) 1 % (0-3) Neutrophils # (Auto) 24.1 x10^3/uL (1.8-7.7) Lymphocytes # (Auto) 1.7 x10^3/uL (1.0-4.8) Monocytes # (Auto) 2.8 x10^3/uL (0.0-1.1) Eosinophils # (Auto) 0.0 x10^3/uL (0.0-0.7) Basophils # (Auto) 0.2 x10^3/uL (0.0-0.2) Sodium Level 129 mmol/L (136-145) Potassium Level 8.0 mmol/L (3.5-5.1) Chloride Level 94 mmol/L (98-107) Carbon Dioxide Level 13 mmol/L (21-32) Anion Gap 22 (6-14) Blood Urea Nitrogen 123 mg/dL (8-26) Creatinine 9.0 mg/dL (0.7-1.3) Estimated GFR (Cockcroft-Gault) 7.0 BUN/Creatinine Ratio 14 (6-20) Glucose Level 200 mg/dL (70-99) Calcium Level 6.1 mg/dL (8.5-10.1) Phosphorus Level 13.3 mg/dL (2.6-4.7) Magnesium Level 2.4 mg/dL (1.8-2.4) Total Bilirubin 8.0 mg/dL (0.2-1.0) Aspartate Amino Transf (AST/SGOT) 1458 U/L (15-37) Alanine Aminotransferase (ALT/SGPT) 912 U/L (16-63) Alkaline Phosphatase 133 U/L (46-116) Total Protein 3.5 g/dL (6.4-8.2) Albumin 1.5 g/dL (3.4-5.0) Albumin/Globulin Ratio 0.8 (1.0-1.7) Medications Active Scripts Medications Dose Route/Sig Max Daily Dose Days Date Category [Auryxia] 2 tabs Tab 210 Mg PO TIDWMEALS 06/19/20 Reported Hydralazine Hcl 50 Mg Tablet 1 Tab PO TID 06/19/20 Reported Furosemide 80 Mg Tablet 1 Tab PO DAILY 06/19/20 Reported Atorvastatin Calcium 20 Mg Tablet 1 Tab PO DAILY 06/19/20 Reported Amlodipine Besylate 10 Mg Tablet 10 Mg PO DAILY 06/19/20 Reported Protonix (Pantoprazole Sodium) 40 Mg Tablet. 40 Mg PO DAILYAC 11/07/19 Reported Dialyvite 3,000 Tablet (Fa/Vit Bcomp&C/Se/Min Aa/Zn) 1 Each Tablet 1 Tab PO DAILY 30 11/06/19 Reported Sodium Bicarbonate 650 Mg Tablet 1 Tab PO BID 11/08/18 Reported Isosorbide Mononitrate Er (Isosorbide Mononitrate) 30 Mg Tab.er.24h 30 Mg PO DAILY 05/09/18 Rx Adult Low Dose Aspirin Ec (Aspirin) 81 Mg Tablet. 81 Mg PO DAILY 05/07/18 Reported Impression . IMPRESSION: 1. Acute respiratory failure secondary to cardiac arrest/ hypoglycemic encephalopathy. 2. Shock, likely hemorrhagic Cannot exclude a cardiac etiology as his ejection fraction is 30-35%. 3. Status post PEA arrest. 4. The patient with end-stage renal disease, on hemodialysis. Now presents with Metabolic acidosis. 5. Status post hemorrhagic shock. Still having GI bleed. He has received fresh frozen plasma. He needs to have a close followup on his coagulopathy panel. GI is following. 6. No definite consolidation seen on the chest x-ray. 7. hypoglycemic encephalopathy. 8. Thrombocytopenia Plan . Updated 01/15/2021 Discussed at length with the family in regards to patient's poor prognosis and current clinical status family has decided to proceed with palliative extubation and comfort care measures. Comfort care medications such as morphine, Ativan will be provided. Proceed with palliative extubation. Discontinue all other treatments Discussed with Dr. Garay and Dr. Kinney Discussed with RN, RT Total critical care time 30 minutes including decision making. DNR 01/14/21 RECOMMENDATIONS: 1. Continue present assist control mode. We will make changes based on the ABGs. 2. Continue present vasopressor support. 3. Packed RBCs transfusion as needed. He has so far received 4 units. 4. Follow GI recommendations. 5. monitor thrombocytopenia. 6. Hematology consultation for thrombocytopenia. 7. Follow renal recommendation. 8. Follow cardiology recommendations. 9. The patient has been on prednisone orally. We will change to IV hydrocortisone due to refractory shock. 10. monitor blood glucose closely. 11. Discussed with RN, discussed with RT. Chart reviewed. Total critical care time 40 minutes including decision making. The patient is DNR now. RENEE ELLISON MD Jan 15, 2021 09:58
--- NOTE | 2021-01-15 10:34 | PDOC ---
Renal-Progress Notes Subjective Notes Notes INTUBATED History of Present Illness Hx of present illness SIGNIFICANTLY WORSE OVER NIGHT Vitals Vitals Vital Signs Date Time Temp Pulse Resp B/P (MAP) Pulse Ox O2 Delivery O2 Flow Rate FiO2 01/15/21 10:00 98.2 52 16 90/51 (64) 100 Ventilator 98.2 Weight Weight [ ] I.O. Intake and Output Intake and Output 01/15/21 06:59 Intake Total 588 ml Output Total 1015 ml Balance -427 ml IV Total 588 ml Output Urine Total 15 ml Stool Total 1000 ml Labs Labs Laboratory Tests Test 01/14/21 14:20 01/14/21 18:30 01/14/21 18:35 01/15/21 00:05 Prothrombin Time 23.4 SEC (11.7-14.0) Prothromb Time International Ratio 2.1 (0.8-1.1) Hemoglobin 10.3 g/dL (13.0-17.5) 9.7 g/dL (13.0-17.5) Hematocrit 31.7 % (39.0-53.0) 30.3 % (39.0-53.0) Mean Corpuscular Hemoglobin Concent 33 g/dL (31-37) 32 g/dL (31-37) Glucose (Fingerstick) 156 mg/dL (70-99) Glucose Level 187 mg/dL (70-99) Test 01/15/21 07:25 01/15/21 07:35 O2 Saturation 99 % (92-99) Arterial Blood pH 7.12 (7.35-7.45) Arterial Blood pCO2 at Patient Temp 37 mmHg (35-46) Arterial Blood pO2 at Patient Temp 153 mmHg (65-108) Arterial Blood HCO3 12 mmol/L (21-28) Arterial Blood Base Excess -17 mmol/L (-3-3) FiO2 40 White Blood Count 28.8 x10^3/uL (4.0-11.0) Red Blood Count 3.00 x10^6/uL (4.30-5.70) Hemoglobin 9.5 g/dL (13.0-17.5) Hematocrit 28.7 % (39.0-53.0) Mean Corpuscular Volume 96 fL (79-100) Mean Corpuscular Hemoglobin 32 pg (25-35) Mean Corpuscular Hemoglobin Concent 33 g/dL (31-37) Red Cell Distribution Width 19.0 % (11.5-14.5) Platelet Count 84 x10^3/uL (140-400) Neutrophils (%) (Auto) 84 % (31-73) Lymphocytes (%) (Auto) 6 % (24-48) Monocytes (%) (Auto) 10 % (0-9) Eosinophils (%) (Auto) 0 % (0-3) Basophils (%) (Auto) 1 % (0-3) Neutrophils # (Auto) 24.1 x10^3/uL (1.8-7.7) Lymphocytes # (Auto) 1.7 x10^3/uL (1.0-4.8) Monocytes # (Auto) 2.8 x10^3/uL (0.0-1.1) Eosinophils # (Auto) 0.0 x10^3/uL (0.0-0.7) Basophils # (Auto) 0.2 x10^3/uL (0.0-0.2) Sodium Level 129 mmol/L (136-145) Potassium Level 8.0 mmol/L (3.5-5.1) Chloride Level 94 mmol/L (98-107) Carbon Dioxide Level 13 mmol/L (21-32) Anion Gap 22 (6-14) Blood Urea Nitrogen 123 mg/dL (8-26) Creatinine 9.0 mg/dL (0.7-1.3) Estimated GFR (Cockcroft-Gault) 7.0 BUN/Creatinine Ratio 14 (6-20) Glucose Level 200 mg/dL (70-99) Calcium Level 6.1 mg/dL (8.5-10.1) Phosphorus Level 13.3 mg/dL (2.6-4.7) Magnesium Level 2.4 mg/dL (1.8-2.4) Total Bilirubin 8.0 mg/dL (0.2-1.0) Aspartate Amino Transf (AST/SGOT) 1458 U/L (15-37) Alanine Aminotransferase (ALT/SGPT) 912 U/L (16-63) Alkaline Phosphatase 133 U/L (46-116) Total Protein 3.5 g/dL (6.4-8.2) Albumin 1.5 g/dL (3.4-5.0) Albumin/Globulin Ratio 0.8 (1.0-1.7) Review of Systems Constitutional: yes: unresponsive Ears/Nose/Throat: Yes: no symptom reported Eyes: Yes: no symptom reported Pulmonary: Yes no symptom reported Cardiovascular: Yes no symptom reported Gastrointestional: Yes: no symptom reported Genitourinary: Yes: no symptom reported Musculoskeletal: Yes: no symptom reported Skin: Yes no symptom reported Psychiatric/Neurological: Yes: no symptom reported Physical Exam General Appearance: no apparent distress Skin: warm Respiratory: bilateral CTA, decreased breath sounds Heart: other (AFIB WITH HR OF 130) Abdomen: soft, bowel sounds present Genitourinary: bladder flat Extremities: pulses present Neurology: other (sedated) Assessment Assessment IMP CARDIAC ARREST GI BLEED SEVERE ANEMIA LIFE THREATENING HYPERKALEMIA MET ENCEPHALOPATHY UREMIA ANEMIA HYPOTENSION NON COMPLIANCE NON ISCHEMIC CM LEUCOCYTOSIS AFIB RVR MALFUNCTIONING AV ACCESS ESRD PLAN CURRENTLY ON HD WITH HYPOTENSION ON HIGH HCO3 DIALYSATE UNABLE TO UF ON MULTIPLE PRESSORS SPA GIVEN WITH NO IMPROVEMENT MSOF WITH WORSENING LIVER FAILURE HE WILL NOT TOLERATED DIALYSIS WILL STOP DIALYSIS SUGGEST WITHDRAWAL OF CARE PT ALREADY DNR FAMILY NOTIFIED AND COMING IN D/W PULM/CRITICAL CARE ETTA JO MD Jan 15, 2021 10:34
[2021-01-15] MEDS ORDERED: MORPHINE SULFATE 10 MG/ML VIAL. IV ONE (11:15)
--- NOTE | 2021-01-15 11:30 | NUR ---
Palliatively extubated patient to room air at 1130 w/ Katty RN
--- NOTE | 2021-01-15 11:36 | PDOC ---
CARDIO Progress Notes Date and Time Date of Service 01/15/2021 Time of Evaluation 1120 Subjective Subjective: Other (intubated) Vitals Vitals Vital Signs Date Time Temp Pulse Resp B/P (MAP) Pulse Ox O2 Delivery O2 Flow Rate FiO2 01/15/21 11:30 100 01/15/21 10:00 98.2 52 16 90/51 (64) Ventilator 98.2 Weight Weight [ ] Input and Output Intake and Output Intake and Output 01/15/21 07:00 Intake Total 588 ml Output Total 1015 ml Balance -427 ml IV Total 588 ml Output Urine Total 15 ml Stool Total 1000 ml Laboratory Labs Laboratory Tests Test 01/14/21 14:20 01/14/21 18:30 01/14/21 18:35 01/15/21 00:05 Prothrombin Time 23.4 SEC (11.7-14.0) Prothromb Time International Ratio 2.1 (0.8-1.1) Hemoglobin 10.3 g/dL (13.0-17.5) 9.7 g/dL (13.0-17.5) Hematocrit 31.7 % (39.0-53.0) 30.3 % (39.0-53.0) Mean Corpuscular Hemoglobin Concent 33 g/dL (31-37) 32 g/dL (31-37) Glucose (Fingerstick) 156 mg/dL (70-99) Glucose Level 187 mg/dL (70-99) Test 01/15/21 07:25 01/15/21 07:35 O2 Saturation 99 % (92-99) Arterial Blood pH 7.12 (7.35-7.45) Arterial Blood pCO2 at Patient Temp 37 mmHg (35-46) Arterial Blood pO2 at Patient Temp 153 mmHg (65-108) Arterial Blood HCO3 12 mmol/L (21-28) Arterial Blood Base Excess -17 mmol/L (-3-3) FiO2 40 White Blood Count 28.8 x10^3/uL (4.0-11.0) Red Blood Count 3.00 x10^6/uL (4.30-5.70) Hemoglobin 9.5 g/dL (13.0-17.5) Hematocrit 28.7 % (39.0-53.0) Mean Corpuscular Volume 96 fL (79-100) Mean Corpuscular Hemoglobin 32 pg (25-35) Mean Corpuscular Hemoglobin Concent 33 g/dL (31-37) Red Cell Distribution Width 19.0 % (11.5-14.5) Platelet Count 84 x10^3/uL (140-400) Neutrophils (%) (Auto) 84 % (31-73) Lymphocytes (%) (Auto) 6 % (24-48) Monocytes (%) (Auto) 10 % (0-9) Eosinophils (%) (Auto) 0 % (0-3) Basophils (%) (Auto) 1 % (0-3) Neutrophils # (Auto) 24.1 x10^3/uL (1.8-7.7) Lymphocytes # (Auto) 1.7 x10^3/uL (1.0-4.8) Monocytes # (Auto) 2.8 x10^3/uL (0.0-1.1) Eosinophils # (Auto) 0.0 x10^3/uL (0.0-0.7) Basophils # (Auto) 0.2 x10^3/uL (0.0-0.2) Sodium Level 129 mmol/L (136-145) Potassium Level 8.0 mmol/L (3.5-5.1) Chloride Level 94 mmol/L (98-107) Carbon Dioxide Level 13 mmol/L (21-32) Anion Gap 22 (6-14) Blood Urea Nitrogen 123 mg/dL (8-26) Creatinine 9.0 mg/dL (0.7-1.3) Estimated GFR (Cockcroft-Gault) 7.0 BUN/Creatinine Ratio 14 (6-20) Glucose Level 200 mg/dL (70-99) Calcium Level 6.1 mg/dL (8.5-10.1) Phosphorus Level 13.3 mg/dL (2.6-4.7) Magnesium Level 2.4 mg/dL (1.8-2.4) Total Bilirubin 8.0 mg/dL (0.2-1.0) Aspartate Amino Transf (AST/SGOT) 1458 U/L (15-37) Alanine Aminotransferase (ALT/SGPT) 912 U/L (16-63) Alkaline Phosphatase 133 U/L (46-116) Total Protein 3.5 g/dL (6.4-8.2) Albumin 1.5 g/dL (3.4-5.0) Albumin/Globulin Ratio 0.8 (1.0-1.7) Review of Systems Constitutional: yes: unresponsive Ears/Nose/Throat: Yes: no symptom reported Eyes: Yes: no symptom reported Pulmonary: Yes no symptom reported Cardiovascular: Yes no symptom reported Gastrointestional: Yes: no symptom reported Genitourinary: Yes: no symptom reported Musculoskeletal: Yes: no symptom reported Skin: Yes no symptom reported Psychiatric/Neurological: Yes: no symptom reported Physical Exam HEENT: Neck Supple W Full Motion Chest: Symmetric LUNGS: Other (intubated, vent) Heart: RRR (Possible atrial flutter) Abdomen: Other (soft, rectal tube with liquid black stool) Extremities: No Edema Neurology: other (sedated) Assessment Assessment 1. Failure to thrive 2. Afib/flutter: presently SR/ST 3. NICM: EF at 30% 4. HTN: was on hypovolemic shock 5. ESRD with hyperkalemia: K 5.5 6. Thrombocytopenia and anemia: Hgb was down to 5.8. PLT at 69 7. AICD in situ: [place] 8. Hypoglycemia 9. Metabolic encephalopathy: better 10. Transaminitis 11. Poor compliance 12. SAMM; refused CPAP in the past 13. NSTEMI: suspect type 2 demand mediated, trop peaked at 2.1, cp free in the setting of esrd, severe hyperkalemia and AFIB RVR 14. Mild coagulopathy: INR at 2.1 15. Acute GI bleed: received 4U PRBCs and 2U PLT and FFP. Hgb 10.5 post transfusion 16. S/P code blue/PEA: occurred around 530 AM suspect due to GI bleed, hypoglycemia, hypovolemic shock, and secondary hyperkalemia likely from sanguinous breakdown and absorption. Found agonal breathing, wide complex ta ch/PEA, ep given, 7 min to ROSC and SR afterwards, hypothermic and now rewarmed. Intubated and vent. 17. Acute respiratory failure: due to above. intubated/vent Recommendations 1. Hold BP meds. Continue vasopressin and levophed. Continue 200 mg amiodarone 2. No anticoagulation. Hold ASA. Follow GI recommendations. 3. Fluid off loading per HD 4. Family at the bedside, family wants to pursue comfort care. Will sign off Anilfation of Admission Dx: Justifications for Admission: Justification of Admission Dx: Yes MA[facility] [employer] SPECIALIST Jan 15, 2021 11:36
[2021-01-15 11:44] LABS: % BANDS 33 % (0-9); % LYMPHS 8 % (24-48); % METAS 5 % (0-0); % MONOS 13 % (0-10); % MYELOS 1 % (0-0); % SEGS 40 % (35-66); ANISOCYTOSIS SLIGHT; NUCLEATED RBC 44; PLT ESTIMATE DECREASED (ADEQUATE)
[2021-01-15 11:45] LABS: TOXIC GRANULATION PRESENT
--- NOTE | 2021-01-15 11:57 | NUR ---
Patient at 1138 with family at bedside. Doctors were notified along with [place] and Nursing Community Affairs Director. Addendum: 01/15/21 at 1200 by SABINO [address] RN Dr. Kinney and Dr. Sierra were both notified.
== END 2021-01-15 13:26 ==
LOC: ER 17:56 → 1 WEST ICU 20:29 → 6 SOUTH 01-11 10:51 → 1 WEST ICU 01-13 05:57
PROVIDERS: ADMIT Family Medicine; ATTEND Family Medicine
PROC: 5A1945Z Respiratory Ventilation, 24-96 Consecutive Hours (ICD-10-PCS; principal; 2021-01-08)
PROC: 0BH17EZ Insertion of Endotracheal Airway into Trachea, Via Natural or Artificial Opening (ICD-10-PCS; 2021-01-08)
PROC: 5A1D70Z Performance of Urinary Filtration, Intermittent, Less than 6 Hours Per Day (ICD-10-PCS; 2021-01-08)
PROC: 5A09357 Assistance with Respiratory Ventilation, Less than 24 Consecutive Hours, Continuous Positive Airway Pressure (ICD-10-PCS; 2021-01-09)
PROC: 5A09357 Assistance with Respiratory Ventilation, Less than 24 Consecutive Hours, Continuous Positive Airway Pressure (ICD-10-PCS; 2021-01-10)
PROC: 5A1D70Z Performance of Urinary Filtration, Intermittent, Less than 6 Hours Per Day (ICD-10-PCS; 2021-01-11)
PROC: 5A09357 Assistance with Respiratory Ventilation, Less than 24 Consecutive Hours, Continuous Positive Airway Pressure (ICD-10-PCS; 2021-01-11)
PROC: 5A12012 Performance of Cardiac Output, Single, Manual (ICD-10-PCS; 2021-01-13)
PROC: 5A1D70Z Performance of Urinary Filtration, Intermittent, Less than 6 Hours Per Day (ICD-10-PCS; 2021-01-13)
PROC: 02HV33Z Insertion of Infusion Device into Superior Vena Cava, Percutaneous Approach (ICD-10-PCS; 2021-01-13)
PROC: 02HV33Z Insertion of Infusion Device into Superior Vena Cava, Percutaneous Approach (ICD-10-PCS; 2021-01-13)
PROC: B548ZZA Ultrasonography of Superior Vena Cava, Guidance (ICD-10-PCS; 2021-01-13)
PROC: B548ZZA Ultrasonography of Superior Vena Cava, Guidance (ICD-10-PCS; 2021-01-13)
PROC: 30233K1 Transfusion of Nonautologous Frozen Plasma into Peripheral Vein, Percutaneous Approach (ICD-10-PCS; 2021-01-13)
PROC: 30233N1 Transfusion of Nonautologous Red Blood Cells into Peripheral Vein, Percutaneous Approach (ICD-10-PCS; 2021-01-13)
PROC: 5A09357 Assistance with Respiratory Ventilation, Less than 24 Consecutive Hours, Continuous Positive Airway Pressure (ICD-10-PCS; 2021-01-13)
PROC: 5A1D70Z Performance of Urinary Filtration, Intermittent, Less than 6 Hours Per Day (ICD-10-PCS; 2021-01-15)
DX: I13.2 Hypertensive heart and chronic kidney disease with heart failure and with stage 5 chronic kidney disease, or end stage renal disease (principal); I50.43 Acute on chronic combined systolic (congestive) and diastolic (congestive) heart failure; I21.A1 Myocardial infarction type 2; N18.6 End stage renal disease; G93.41 Metabolic encephalopathy; E43 Unspecified severe protein-calorie malnutrition; J96.00 Acute respiratory failure, unspecified whether with hypoxia or hypercapnia; E87.3 Alkalosis; D68.9 Coagulation defect, unspecified; I48.92 Unspecified atrial flutter; D62 Acute posthemorrhagic anemia; E27.40 Unspecified adrenocortical insufficiency; E87.4 Mixed disorder of acid-base balance; K92.2 Gastrointestinal hemorrhage, unspecified; I46.9 Cardiac arrest, cause unspecified; R57.1 Hypovolemic shock; I42.8 Other cardiomyopathies; E87.5 Hyperkalemia; E11.22 Type 2 diabetes mellitus with diabetic chronic kidney disease; Z91.19 Patient's noncompliance with other medical treatment and regimen; I48.91 Unspecified atrial fibrillation; R62.7 Adult failure to thrive; D69.6 Thrombocytopenia, unspecified; Z95.810 Presence of automatic (implantable) cardiac defibrillator; E11.649 Type 2 diabetes mellitus with hypoglycemia without coma; G47.33 Obstructive sleep apnea (adult) (pediatric); E78.5 Hyperlipidemia, unspecified; I25.2 Old myocardial infarction; I49.3 Ventricular premature depolarization; J44.9 Chronic obstructive pulmonary disease, unspecified; K21.9 Gastro-esophageal reflux disease without esophagitis; N40.0 Benign prostatic hyperplasia without lower urinary tract symptoms; Z66 Do not resuscitate; Z82.49 Family history of ischemic heart disease and other diseases of the circulatory system; Z83.3 Family history of diabetes mellitus; Z87.891 Personal history of nicotine dependence; Z90.49 Acquired absence of other specified parts of digestive tract; Z91.14 Patient's other noncompliance with medication regimen; Z99.2 Dependence on renal dialysis; E21.3 Hyperparathyroidism, unspecified; M19.90 Unspecified osteoarthritis, unspecified site
CPT/HCPCS: 36415; 36430; 36556; 36600; 71045; 76937; 80048; 80053; 80061; 80076; 82248; 82607; 82805; 82947; 82962; 83540; 83550; 83735; 84100; 84132; 84443; 84484; 85007; 85014; 85018; 85025; 85027; 85610; 86706; 86850; 86900; 86901; 86920; 86927; 87340; 93005; 93306; 94002; 94003; 94660; 94760; 96374; 96375; 96376; 99291; C1892; C9113; J0171; J0610; J0882; J1720; J1815; J2250; J2270; J2370; J2920; J3010; J3430; J3490; J7050; J7060; J7512; P9016; P9017; G0378; J7030; J7613